=== PATIENT | female | born 1940 | race Caucasian/White ===

== ENCOUNTER 2017-05-06 12:34 | Inpatient (IN) | payer MEDICARE ==
[~2017-05-06] VITALS: Ht 165.1 cm; Wt 64.9 kg
[2017-05-06] MEDS ORDERED: LORA10TA3 PO (13:24)
[2017-05-06] MEDS ORDERED: TELM1TAB3 PO (13:24)
[2017-05-06] MEDS ORDERED: NABU750T PO (13:24)
[2017-05-06] MEDS ORDERED: POTA500T5 PO (13:24)
[2017-05-06] MEDS ORDERED: LORA1TAB PO (13:24)
[2017-05-06] MEDS ORDERED: DONE10TA7 PO (13:25)
[2017-05-06] MEDS ORDERED: LOVA20TA2 PO (13:25)
[2017-05-06] MEDS ORDERED: GLUC1TAB44 PO (13:25)
[2017-05-06] MEDS ORDERED: OMEP20TA63 PO (13:25)
[2017-05-06] MEDS ORDERED: ACET650T89 PO (13:25)
[2017-05-06] MEDS ORDERED: MEMA10TA PO ×2 (13:25→14:29)
[2017-05-06] MEDS ORDERED: HYDR-2868 PO (13:25)
[2017-05-06] MEDS ORDERED: ACETAMINOPHEN 325 MG TABLET PO PRN (14:00)
[2017-05-06] MEDS: hydrALAZINE 25 MG TABLET PO SCH ×2 (14:00→19:38)
[2017-05-06] MEDS ORDERED: HYDROcodone/APAP 5/325MG 1 TAB TABLET PO PRN (14:00)
[2017-05-06] MEDS ORDERED: ACETAMINOPHEN 1300 MG PO SCH (14:00)
[2017-05-06] MEDS: DIVALPROEX 125 MG CAP.SPRINK PO SCH ×2 (14:00→19:37)
[2017-05-06 14:23] VITALS: BP 98/65
[2017-05-06] MEDS ORDERED: LEXAPRO5 MG PO (14:29)
[2017-05-06] MEDS ORDERED: LOSA1TAB25 PO (14:29)
[2017-05-06] MEDS ORDERED: HYDR-971 PO ×2 (14:29)
[2017-05-06] MEDS ORDERED: ACET500T68 PO (14:29)
[2017-05-06] MEDS ORDERED: RIVA1PAT22 TP (14:29)
[2017-05-06] MEDS ORDERED: DIVA125C PO (14:29)
[2017-05-06] MEDS ORDERED: CHOL500021 PO (14:29)
[2017-05-06] MEDS ORDERED: MENT118G TP (14:29)
[2017-05-06] MEDS ORDERED: ACET325T9 PO (14:29)
[2017-05-06] MEDS ORDERED: LORA0.5T PO (14:29)
[2017-05-06] MEDS ORDERED: METHYL SALICYLATE/MENTHOL TOPICAL OINTMENT 29GM TUBE. TP PRN (15:00)
[2017-05-06] MEDS ORDERED: MAG HYDROX/AL HYDROX/SIMETH 30 ML ORAL.SUSP PO PRN (15:30)
[2017-05-06] MEDS ORDERED: MAGNESIUM HYDROXIDE 2,400 MG/30 ML ORAL.SUSP. PO PRN (15:30)
[2017-05-06] MEDS ORDERED: CHOLECALCIFEROL (VITAMIN D3) 50,000 UNIT CAPSULE PO SCH (17:00)
[2017-05-06] MEDS: MEMANTINE 5 MG TABLET. PO SCH (19:37)
[2017-05-06] MEDS: ATORVASTATIN CALCIUM 10 MG TABLET. PO SCH (19:37)
[2017-05-06] MEDS: ACETAMINOPHEN 500 MG TABLET PO SCH (19:38)
[2017-05-06] MEDS: DONEPEZIL HCL 10 MG TABLET PO SCH (19:38)
--- NOTE | 2017-05-06 22:14 | PDOC ---
Exam Note: Tobin Note: Please also refer to the separate dictated note~for this date of service dictated separately.~Patient seen individually. Discussed the patient with Nursing staff reviewed the chart.~Reviewed interim history and current functioning. Reviewed vital signs,~Labs/ Radiology~and current medications noted below. Continue current treatment with the changes noted in the dictated addendum note Assessment: Vital Signs: Vital Signs Date Time Temp Pulse Resp B/P (MAP) Pulse Ox O2 Delivery O2 Flow Rate FiO2 05/06/17 19:38 65 122/70 05/06/17 14:23 97.6 19 96 Current Medications: Meds: Current Medications Acetaminophen (Tylenol) 500 mg BID PO Last administered on 05/06/17 19:38; Start 05/06/17 at 21:00 Acetaminophen (Tylenol) 650 mg PRN Q6HRS PRN PO PAIN / TEMP; Start 05/06/17 at 14:00 Vitamin D (Vitamin D3) 50,000 unit WEEKLY PO ; Start 05/06/17 at 17:00; Stop 05/06/17 at 17:00; Status DC Divalproex Sodium (Depakote Sprinkles) 250 mg TID PO Last administered on 05/06 19:37; Start 05/06/17 at 14:00 Donepezil HCl (Aricept) 10 mg HS PO Last administered on 05/06/17 19:38; Start 05/06/17 at 21:00 Hydralazine HCl (Apresoline) 25 mg TID PO Last administered on 05/06/17 19:38 ; Start 05/06/17 at 14:00 Acetaminophen/ Hydrocodone Bitart (Lortab 5/325) 1 tab PRN Q6HRS PRN PO PAIN; Start 05/06/17 at 14:00; Status UNV Acetaminophen/ Hydrocodone Bitart (Lortab 5/325) 1 tab Q4HRS W/A PRN PO PAIN; Start 05/06/17 at 14:00 Lorazepam (Ativan) 0.5 mg PRN Q4HRS PRN PO ANXIETY / AGITATION; Start at 14:00 Memantine (Namenda) 5 mg QHS PO Last administered on 05/06/17 19:37; Start 05/06/17 at 21:00 Memantine (Namenda) 10 mg DAILY PO ; Start 05/07/17 at 09:00 Rivastigmine (Exelon) 1 patch DAILY TD ; Start 05/07/17 at 09:00 Non-Formulary Medication 1,300 mg Q8HRS PO ; Start 05/06/17 at 14:00; Stop at 15:31; Status DC Citalopram Hydrobromide (CeleXA) 10 mg DAILY PO ; Start 05/07/17 at 09:00 Hydrochlorothiazide (Microzide) 12.5 mg DAILY PO ; Start 05/07/17 at 09:00 Atorvastatin Calcium (Lipitor) 5 mg QHS PO Last administered on 05/06/17t 19: 37; Start 05/06/17 at 21:00 Multi-Ingredient Ointment (Analgesic [place]) 1 rin PRN BID PRN TP PAIN; Start at 15:00 Potassium Chloride (Klor-Con 8) 8 meq DAILYWBKFT PO ; Start 05/07/17 at 08:00 Non-Formulary Medication 1 tab DAILY PO ; Start 05/07/17 at 09:00; Status UNV Al Hydroxide/Mg Hydroxide (Mylanta Plus Xs) 15 ml PRN AFTMEALHC PRN PO DYSPEPSIA; Start 05/06/17 at 15:30 Magnesium Hydroxide (Milk Of Magnesia) 2,400 mg PRN QHS PRN PO CONSTIPATION; Start 05/06/17 at 15:30 Losartan Potassium (Cozaar) 100 mg DAILY PO ; Start 05/07/17 at 09:00 Vitamin D (Vitamin D3) 50,000 unit WEEKLY PO ; Start 05/07/17 at 09:00; Stop at 09:01 Olanzapine (ZyPREXA ZYDIS) 2.5 mg PRN Q2HR PRN PO PSYCHOSIS Last administered on 05/06/17t 17:57; Start 05/06/17 at 17:45 Active Scripts Active Reported D3-50 (Cholecalciferol (Vitamin D3)) 50,000 Unit Capsule 50,000 Unit PO WEEKLY Acetaminophen 500 Mg Tablet 500 Mg PO BID Tylenol (Acetaminophen) 325 Mg Tablet 650 Mg PO PRN Q6HRS PRN [place] 5-325 Tablet (Hydrocodone Bit/Acetaminophen) 1 Each Tablet 1 Tab PO PRN Q6HRS PRN [place] 5-325 Tablet (Hydrocodone Bit/Acetaminophen) 1 Each Tablet 1 Tab PO Q4HRS W/A PRN Namenda (Memantine Hcl) 10 Mg Tablet 5 Mg PO HS Losartan-Hctz 100-12.5 Mg Tab (Losartan/Hydrochlorothiazide) 1 Each Tablet 1 Tab PO DAILY Lexapro (Escitalopram Oxalate) 5 Mg Tablet 5 Mg PO DAILY EXELON 4.6mg/24hr (Rivastigmine) 1 Each Patch.td24 1 Patch TP DAILY Depakote Sprinkle (Divalproex Sodium) 125 Mg Cap.sprink 250 Mg PO TID Biofreeze (Menthol) 118 Ml Gel..ml. 1 Ml TP PRN BID PRN Lorazepam 0.5 Mg Tablet 0.5 Mg PO PRN Q4HRS PRN Hydralazine Hcl 25 Mg Tablet 25 Mg PO TID Arthritis Pain (Acetaminophen) 650 Mg Tablet.er 1,300 Mg PO Q8HRS Namenda (Memantine Hcl) 10 Mg Tablet 10 Mg PO DAILY Donepezil Hcl 10 Mg Tablet 10 Mg PO HS Lovastatin 20 Mg Tablet 20 Mg PO HS Micardis Hct 80-12.5 Mg Tablet (Telmisartan/Hydrochlorothiazid) 1 Each Tablet 1 Tab PO DAILY Potassium Gluconate 500 Mg Tablet 500 Mg PO DAILY I have reviewed the current psychotropics carefully including drug interactions. Risk benefit ratio favors no change other than as noted in my dictated progress note. NEHEMIAS EPSTEIN MD May 06, 2017 22:14
[2017-05-07 05:29] VITALS: BP 132/70
[2017-05-07] MEDS: ACETAMINOPHEN 500 MG TABLET PO SCH ×2 (07:15→19:27)
[2017-05-07] MEDS: hydrALAZINE 25 MG TABLET PO SCH ×3 (07:16→19:27)
[2017-05-07] MEDS: CHOLECALCIFEROL (VITAMIN D3) 50,000 UNIT CAPSULE PO SCH (07:34)
[2017-05-07] MEDS: MEMANTINE 10 MG TABLET. PO SCH (07:34)
[2017-05-07] MEDS: CITALOPRAM 10 MG TABLET. PO SCH (07:34)
[2017-05-07] MEDS: DIVALPROEX 125 MG CAP.SPRINK PO SCH (07:36)
[2017-05-07] MEDS: POTASSIUM CHLORIDE 8 MEQ TABLET.ER. PO SCH (07:37)
[2017-05-07] MEDS: RIVASTIGMINE 4.6MG PATCH. TD SCH (07:37)
[2017-05-07 07:45] LABS: BASO # 0.1 x10^3/uL (0.0-0.2); BASO % 1 % (0-3); EOS # 0.2 x10^3/uL (0.0-0.7); EOS % 2 % (0-3); HEMATOCRIT 38.5 % (36.0-47.0); HEMOGLOBIN 13.4 g/dL (12.0-15.5); LYMPH # 1.2 x10^3/uL (1.0-4.8); LYMPH % 13 % (24-48); MEAN CORPUSCULAR HEMOGLOBIN 32 pg (25-35); MEAN CORPUSCULAR HGB CONC 35 g/dL (31-37); MEAN CORPUSCULAR VOLUME 93 fL (79-100); MONO # 0.9 x10^3/uL (0.0-1.1); MONO % 10 % (0-9); NEUT # 6.7 x10^3uL (1.8-7.7); NEUT % 74 % (31-73); PLATELET COUNT 248 x10^3/uL (140-400); RED BLOOD COUNT 4.13 x10^6/uL (3.50-5.40); WHITE BLOOD COUNT 9.1 x10^3/uL (4.0-11.0)
[2017-05-07 08:10] LABS: ALBUMIN 4.2 g/dL (3.4-5.0); CALCIUM 10.1 mg/dL (8.5-10.1); CREATININE 2.8 mg/dL (0.6-1.0); GFR 16.4; MAGNESIUM 2.7 mg/dL (1.8-2.4); POTASSIUM 4.6 mmol/L (3.5-5.1); TOTAL BILIRUBIN 0.7 mg/dL (0.2-1.0); TOTAL PROTEIN 8.3 g/dL (6.4-8.2)
[2017-05-07 08:18] LABS: VAL ACID 30 mcg/mL (50-100)
[2017-05-07 08:31] LABS: BILIRUBIN,URINE NEG (NEG); CLARITY,URINE HAZY; COLOR,URINE YELLOW; GLUCOSE,URINE NEG (NEG)
[2017-05-07 08:32] LABS: BACTERIA,URINE FEW /HPF (0-FEW); GRANULAR CASTS,URINE OCC /HPF; HYALINE CASTS, URINE FEW /HPF; NITRITE,URINE NEG (NEG); SQUAMOUS EPITHELIAL CELL,UR FEW /LPF; UROBILINOGEN,URINE 0.2 mg/dL (0.2 mg/dL); WBC,URINE 20-40 /HPF (0-4)
[2017-05-07] MEDS ORDERED: [UNRECOGNIZED DRUG - OTHER] PO SCH (09:00)
[2017-05-07] MEDS ORDERED: LOSARTAN 50 MG TABLET. PO SCH (09:00)
[2017-05-07] MEDS ORDERED: hydroCHLOROthiazide 12.5 MG CAPSULE PO SCH (09:00)
[2017-05-07 10:55] LABS: THYROID STIM HORMONE (TSH) 0.359 uIU/mL (0.358-3.740)
--- NOTE | 2017-05-07 11:47 | HP ---
ADMIT DATE: 05/06/2017 PSYCHIATRIC ADMISSION HISTORY AND EVALUATION This late entry covers 05/06/2017 covers elements not covered in my initial note of 05/06/2017. IDENTIFYING DATA: The patient was seen individually in the evening of 05/06/2017 for this evaluation. I previously discussed the patient with the nursing staff on 2 occasions to review background, historical information resulting in this referral from her primary care physician, Dr. Callejas from [facility] in [place], [place], and Dr. Smith, psychiatrist. The patient had failed outpatient psychiatric interventions. He is severely demented, confused, has been delusional, agitated, aggressive, throwing things, biting at staff, hitting others. Multiple changes in her psychotropics had been attempted at the senior care. Behaviors had only escalated worsened, persisted despite all of this resulting in this referral. CHIEF COMPLAINT: "I don't know." The patient responded after I asked her when she came here. She was able to tell me her last name; however, after I introduced myself. HISTORY OF PRESENT ILLNESS: The patient has a history of dementia, Alzheimer's vascular type. The patient has been residing at [facility] for some time. Over the past several days, she has been increasingly agitated, labile, psychotic, paranoid. She has had sleep and appetite changes, marked escalation in her behaviors which have been dangerous, biting, hitting others, throwing things potentially dangerous. No clear history of bipolar disorder, suicidal, or homicidal ideation. PAST PSYCHIATRIC HISTORY: As above. MEDICAL HISTORY: Chronic diarrhea, hypertension, GERD, hyperlipidemia. ACCU-CHEKS: None. DIET: Regular. CODE STATUS: She is a full code. CURRENT PSYCHOTROPICS: Depakote Sprinkles 250 mg 3 times a day which initiated recently in response to her above behaviors, Namenda 10 mg daily, 5 mg at bedtime, increasing to 10 mg b.i.d., Aricept 10 mg a day, Exelon patch 4.6 mg daily, Lexapro 5 mg daily. ALLERGIES: AUGMENTIN, CODEINE, PENICILLIN, POTASSIUM. FAMILY HISTORY: Noncontributory. SOCIAL HISTORY: No history of alcohol, drug abuse, physical, sexual, or elder abuse history is noted. Not known to be a perpetrator. MENTAL STATUS EXAMINATION: The patient was seen individually in evening of 05/06/2017. She is oriented to herself, somewhat withdrawn, has received several PRNs prior to my visit, appears somewhat sedated, but shortly after my visit she was agitated, aggressive, disruptive, had to be taken to the quiet room, but the doors opened in the quiet hallway to reduce the sensory stimuli, which was agitating her. She is not very verbal. Insight, judgment, recent and remote memory, attention, concentration, fund of knowledge poor, consistent with her diagnoses. The patient was unable to tell me what kind of work she used to do in the past as I persisted in questioning her irritability only increased. REACTION TO HOSPITALIZATION: The patient is oblivious of this assets, stable living at the senior care, supportive family. IMPRESSION: Major neurocognitive disorder, Alzheimer vascular with depression, delusion, behavioral disturbance; anxiety disorder, unspecified; impulse control disorder, unspecified. Rest is as noted above. PLAN: Admit to the Geropsychiatry unit at [facility]. I will see the patient daily individually from a psychiatric standpoint, medical followup per Dr. Stewart/Dr Sanders. The patient had been sent to the Emergency Room at [facility] in [place], [place]. The previous evening, found to be medically stable, returned back to the senior care only for her behaviors to escalate once again resulting in this referral to us morning of 05/06/2017. Continue current psychotropics, check a valproic acid level, observe baseline, add Zyprexa p.r.n., make further adjustments as clinically indicated. NEHEMIAS EPSTEIN MD DR: USMAN/rogerio JOB#: [id number] / [id number]
--- NOTE | 2017-05-07 12:35 | EKG ---
[address] [address] Test Date: 2017-05-07 Test Time: 07:00:56 Pat Name: ELLIS SCHWAB Department: Room: [address] [place] [address] Gender: Damage Inside Adjuster: : 1940 Requested By: NEHEMIAS EPSTEIN Order Number: [id number] Reading MD: Levi Sandoval Measurements Intervals [place] Rate: P: UT: QRS: QRSD: T: QT: QTc: Interpretive Statements No previous ECG available for comparison Electronically Signed On 05-19-2017 16:36:25 SOFTWARE APPLICATION TESTER by Levi Sandoval
[2017-05-07] MEDS: VALPROATE ACID 250 MG/5 ML ORAL SOLUTION PO SCH ×2 (14:00→19:33)
[2017-05-07 15:54] VITALS: BP 153/71
[2017-05-07 16:11] LABS: THYROXINE 10.2 ug/dL (4.5-12.0)
[2017-05-07] MEDS: IV NORMAL SALINE 1,000ML 1,000 ML IV SCH (17:15)
[2017-05-07] MEDS: ATORVASTATIN CALCIUM 10 MG TABLET. PO SCH (19:23)
[2017-05-07] MEDS: DONEPEZIL HCL 10 MG TABLET PO SCH (19:24)
[2017-05-07] MEDS: MEMANTINE 5 MG TABLET. PO SCH (19:27)
--- NOTE | 2017-05-07 21:19 | PDOC ---
Exam Note: Tobin Note: Please also refer to the separate dictated note~for this date of service dictated separately.~Patient seen individually. Discussed the patient with Nursing staff reviewed the chart.~Reviewed interim history and current functioning. Reviewed vital signs,~Labs/ Radiology~and current medications noted below. Continue current treatment with the changes noted in the dictated addendum note Assessment: Vital Signs: Vital Signs Date Time Temp Pulse Resp B/P (MAP) Pulse Ox O2 Delivery O2 Flow Rate FiO2 05/07/17 19:27 74 153/71 05/07/17 15:54 98.2 16 97 05/07/17 05:29 Room Air I&O Intake and Output 05/07/17 06:59 Intake Total 0 ml Balance 0 ml Intake Oral 0 ml Labs: Laboratory Tests Test 05/07/17 07:30 05/07/17 07:31 Urine Collection Type Unknown Urine Color Yellow Urine Clarity Hazy Urine pH 5.0 Urine Specific [place] 1.015 Urine Protein Trace (NEG-TRACE) Urine Glucose (UA) Neg mg/dL (NEG) Urine Ketones (Stick) Neg mg/dL (NEG) Urine Blood Neg (NEG) Urine Nitrite Neg (NEG) Urine Bilirubin Neg (NEG) Urine Urobilinogen Dipstick 0.2 mg/dL (0.2 mg/dL) Urine Leukocyte Esterase Small (NEG) Urine RBC 1-2 /HPF (0-2) Urine WBC 20-40 /HPF (0-4) Urine Squamous Epithelial Cells Few /LPF Urine Transitional Epithelial Cells Few /LPF Urine Bacteria Few /HPF (0-FEW) Urine Hyaline Casts Few /HPF Urine Granular Casts Occ /HPF White Blood Count 9.1 x10^3/uL (4.0-11.0) Red Blood Count 4.13 x10^6/uL (3.50-5.40) Hemoglobin 13.4 g/dL (12.0-15.5) Hematocrit 38.5 % (36.0-47.0) Mean Corpuscular Volume 93 fL (79-100) Mean Corpuscular Hemoglobin 32 pg (25-35) Mean Corpuscular Hemoglobin Concent 35 g/dL (31-37) Red Cell Distribution Width 14.0 % (11.5-14.5) Platelet Count 248 x10^3/uL (140-400) Neutrophils (%) (Auto) 74 % (31-73) H Lymphocytes (%) (Auto) 13 % (24-48) L Monocytes (%) (Auto) 10 % (0-9) H Eosinophils (%) (Auto) 2 % (0-3) Basophils (%) (Auto) 1 % (0-3) Neutrophils # (Auto) 6.7 x10^3uL (1.8-7.7) Lymphocytes # (Auto) 1.2 x10^3/uL (1.0-4.8) Monocytes # (Auto) 0.9 x10^3/uL (0.0-1.1) Eosinophils # (Auto) 0.2 x10^3/uL (0.0-0.7) Basophils # (Auto) 0.1 x10^3/uL (0.0-0.2) Sodium Level 141 mmol/L (136-145) Potassium Level 4.6 mmol/L (3.5-5.1) Chloride Level 106 mmol/L (98-107) Carbon Dioxide Level 21 mmol/L (21-32) Anion Gap 14 (6-14) Blood Urea Nitrogen 83 mg/dL (7-20) H Creatinine 2.8 mg/dL (0.6-1.0) H Estimated GFR (Cockcroft-Gault) 16.4 BUN/Creatinine Ratio 30 (6-20) H Glucose Level 98 mg/dL (70-99) Calcium Level 10.1 mg/dL (8.5-10.1) Magnesium Level 2.7 mg/dL (1.8-2.4) H Iron Level 105 ug/dL (50-170) Total Iron Binding Capacity 243 ug/dL (250-450) L Iron Saturation 43 % (15-34) H Total Bilirubin 0.7 mg/dL (0.2-1.0) Aspartate Amino Transferase (AST) 37 U/L (15-37) Alanine Aminotransferase (ALT) 51 U/L (14-59) Alkaline Phosphatase 89 U/L (46-116) Total Protein 8.3 g/dL (6.4-8.2) H Albumin 4.2 g/dL (3.4-5.0) Albumin/Globulin Ratio 1.0 (1.0-1.7) Triglycerides Level 66 mg/dL (0-150) Cholesterol Level 141 mg/dL (0-200) LDL Cholesterol, Calculated 60 mg/dL (0-100) VLDL Cholesterol, Calculated 13 mg/dL (0-40) Non-HDL Cholesterol Calculated 73 mg/dL (0-129) HDL Cholesterol 68 mg/dL (40-60) H Cholesterol/HDL Ratio 2.0 Thyroid Stimulating Hormone (TSH) 0.359 uIU/mL (0.358-3.740) Thyroxine (T4) 10.2 ug/dL (4.5-12.0) Total Triiodothyronine (TT3) 53 ng/dL (71-180) L Valproic Acid Level 30 mcg/mL (50-100) L Valproic Acid Last Dose Date 05/06/17 Valproic Acid Last Dose Time 2100 Rapid Plasma Reagin Pending Current Medications: Meds: Current Medications Acetaminophen (Tylenol) 500 mg BID PO Last administered on 05/07/17 19:27; Start 05/06/17 at 21:00 Acetaminophen (Tylenol) 650 mg PRN Q6HRS PRN PO PAIN / TEMP Last administered on 05/07/17 07:15; Start 05/06/17 at 14:00 Vitamin D (Vitamin D3) 50,000 unit WEEKLY PO ; Start 05/06/17 at 17:00; Stop 05/06/17 at 17:00; Status DC Divalproex Sodium (Depakote Sprinkles) 250 mg TID PO Last administered on 05/07 07:36; Start 05/06/17 at 14:00; Stop 05/07/17 at 13:09; Status DC Donepezil HCl (Aricept) 10 mg HS PO Last administered on 05/07/17 19:24; Start 05/06/17 at 21:00 Hydralazine HCl (Apresoline) 25 mg TID PO Last administered on 05/07/17 19:27 ; Start 05/06/17 at 14:00 Acetaminophen/ Hydrocodone Bitart (Lortab 5/325) 1 tab PRN Q6HRS PRN PO PAIN; Start 05/06/17 at 14:00; Status UNV Acetaminophen/ Hydrocodone Bitart (Lortab 5/325) 1 tab Q4HRS W/A PRN PO PAIN; Start 05/06/17 at 14:00 Lorazepam (Ativan) 0.5 mg PRN Q4HRS PRN PO ANXIETY / AGITATION; Start at 14:00 Memantine (Namenda) 5 mg QHS PO Last administered on 05/07/17 19:27; Start 05/06/17 at 21:00 Memantine (Namenda) 10 mg DAILY PO Last administered on 05/07/17 07:34; Start 05/07/17 at 09:00 Rivastigmine (Exelon) 1 patch DAILY TD Last administered on 05/07/17 07:37; Start 05/07/17 at 09:00 Non-Formulary Medication 1,300 mg Q8HRS PO ; Start 05/06/17 at 14:00; Stop at 15:31; Status DC Citalopram Hydrobromide (CeleXA) 10 mg DAILY PO Last administered on 07:34; Start 05/07/17 at 09:00 Hydrochlorothiazide (Microzide) 12.5 mg DAILY PO Last administered on 07:34; Start 05/07/17 at 09:00; Stop 05/07/17 at 17:04; Status DC Atorvastatin Calcium (Lipitor) 5 mg QHS PO Last administered on 05/07/17 19: 23; Start 05/06/17 at 21:00 Multi-Ingredient Ointment (Analgesic [place]) 1 rin PRN BID PRN TP PAIN; Start at 15:00 Potassium Chloride (Klor-Con 8) 8 meq DAILYWBKFT PO Last administered on 07:37; Start 05/07/17 at 08:00 Non-Formulary Medication 1 tab DAILY PO ; Start 05/07/17 at 09:00; Status UNV Al Hydroxide/Mg Hydroxide (Mylanta Plus Xs) 15 ml PRN AFTMEALHC PRN PO DYSPEPSIA; Start 05/06/17 at 15:30 Magnesium Hydroxide (Milk Of Magnesia) 2,400 mg PRN QHS PRN PO CONSTIPATION; Start 05/06/17 at 15:30 Losartan Potassium (Cozaar) 100 mg DAILY PO Last administered on 05/07/17 07: 33; Start 05/07/17 at 09:00; Stop 05/07/17 at 17:04; Status DC Vitamin D (Vitamin D3) 50,000 unit WEEKLY PO Last administered on 05/07/17 07 :34; Start 05/07/17 at 09:00; Stop 06/18/17 at 09:01 Olanzapine (ZyPREXA ZYDIS) 2.5 mg PRN Q2HR PRN PO PSYCHOSIS Last administered on 05/06/17 17:57; Start 05/06/17 at 17:45 Valproic Acid (Depakene) 250 mg [id number] PO Last administered on 05/07/17 19:33 ; Start 05/07/17 at 14:00 Sodium Chloride 1,000 ml @ 75 mls/hr [id number] IV Last administered on 17:15; Start 05/07/17 at 17:15 Active Scripts Active Reported D3-50 (Cholecalciferol (Vitamin D3)) 50,000 Unit Capsule 50,000 Unit PO WEEKLY Acetaminophen 500 Mg Tablet 500 Mg PO BID Tylenol (Acetaminophen) 325 Mg Tablet 650 Mg PO PRN Q6HRS PRN [place] 5-325 Tablet (Hydrocodone Bit/Acetaminophen) 1 Each Tablet 1 Tab PO PRN Q6HRS PRN [place] 5-325 Tablet (Hydrocodone Bit/Acetaminophen) 1 Each Tablet 1 Tab PO Q4HRS W/A PRN Namenda (Memantine Hcl) 10 Mg Tablet 5 Mg PO HS Losartan-Hctz 100-12.5 Mg Tab (Losartan/Hydrochlorothiazide) 1 Each Tablet 1 Tab PO DAILY Lexapro (Escitalopram Oxalate) 5 Mg Tablet 5 Mg PO DAILY EXELON 4.6mg/24hr (Rivastigmine) 1 Each Patch.td24 1 Patch TP DAILY Depakote Sprinkle (Divalproex Sodium) 125 Mg Cap.sprink 250 Mg PO TID Biofreeze (Menthol) 118 Ml Gel..ml. 1 Ml TP PRN BID PRN Lorazepam 0.5 Mg Tablet 0.5 Mg PO PRN Q4HRS PRN Hydralazine Hcl 25 Mg Tablet 25 Mg PO TID Arthritis Pain (Acetaminophen) 650 Mg Tablet.er 1,300 Mg PO Q8HRS Namenda (Memantine Hcl) 10 Mg Tablet 10 Mg PO DAILY Donepezil Hcl 10 Mg Tablet 10 Mg PO HS Lovastatin 20 Mg Tablet 20 Mg PO HS Micardis Hct 80-12.5 Mg Tablet (Telmisartan/Hydrochlorothiazid) 1 Each Tablet 1 Tab PO DAILY Potassium Gluconate 500 Mg Tablet 500 Mg PO DAILY I have reviewed the current psychotropics carefully including drug interactions. Risk benefit ratio favors no change other than as noted in my dictated progress note. 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
[2017-05-08 01:08] LABS: HEMOGLOBIN A1C 4.9 % (4.8-5.6)
[2017-05-08] MEDS: HYDROcodone/APAP 5/325MG 1 TAB TABLET PO PRN ×2 (05:28→19:25)
[2017-05-08] MEDS: LORazepam 0.5 MG TABLET PO PRN (05:28)
[2017-05-08 06:22] VITALS: BP 141/59
[2017-05-08] MEDS: IV NORMAL SALINE 1,000ML 1,000 ML IV SCH ×2 (06:35→20:43)
[2017-05-08] MEDS: CITALOPRAM 10 MG TABLET. PO SCH (07:47)
[2017-05-08] MEDS: VALPROATE ACID 250 MG/5 ML ORAL SOLUTION PO SCH ×3 (07:47→19:26)
[2017-05-08] MEDS: hydrALAZINE 25 MG TABLET PO SCH ×3 (07:47→19:26)
[2017-05-08] MEDS: RIVASTIGMINE 4.6MG PATCH. TD SCH (07:47)
[2017-05-08] MEDS: MEMANTINE 10 MG TABLET. PO SCH (07:47)
[2017-05-08] MEDS: ACETAMINOPHEN 500 MG TABLET PO SCH ×2 (07:47→19:26)
[2017-05-08] MEDS: POTASSIUM CHLORIDE 8 MEQ TABLET.ER. PO SCH (07:53)
[2017-05-08 08:21] LABS: CALCIUM 9.5 mg/dL (8.5-10.1); GFR 24.2; POTASSIUM 4.3 mmol/L (3.5-5.1)
--- NOTE | 2017-05-08 09:09 | CONS ---
DATE OF CONSULTATION: 05/07/2017 REASON FOR CONSULTATION: Medical management. HISTORY OF PRESENT ILLNESS: The patient is a 76-year-old female patient, a resident at [facility] in [place], [place], who apparently was [facility] on the account of being severely demented, confused, has been delusional, agitated, aggressive, throwing things, fighting with staff, hitting others, multiple changes in her psychotropic medication had been attempted at the correction and she has failed outpatient psychiatric intervention and her behavior worsened and she was admitted for inpatient psychiatric stabilization. When I saw her, she was very sleepy and lethargic and does not give any useful information. PAST MEDICAL HISTORY: Significant for hypertension, chronic diarrhea, gastroesophageal reflux disease, hyperlipidemia. PAST SURGICAL HISTORY: Unobtainable. PAST PSYCHIATRIC HISTORY: Significant for dementia, Alzheimer vascular type. ALLERGIES: She is allergic to PENICILLIN, AMOXICILLIN, CLAVULANIC ACID, CODEINE and POTASSIUM. MEDICATIONS: She is currently on following medications: She is on Tylenol 650 mg every 6 hours as needed for pain or fever. She is on valproic acid 250 mg 3 times a day, vitamin D 50,000 units once a week, losartan potassium 100 mg daily, hydrochlorothiazide 12.5 mg once a day, citalopram hydrobromide 10 mg once a day, rivastigmine for [place] 1 patch daily, Namenda 10 mg once a day, potassium chloride 8 mEq once a day, atorvastatin mg at bedtime, Namenda 5 mg twice a day, Aricept 10 mg once a day, olanzapine 2.5 mg every 2 hours as needed for agitation, milk of magnesia 30 mL p.o. daily p.r.n. for constipation, Mylanta 15 mL after meals as needed, lorazepam 0.5 mg every 4 hours, hydrocodone/APAP 5/325 one tablet every 4 hours, hydralazine 25 mg 3 times a day. PHYSICAL EXAMINATION: GENERAL: When I saw her this afternoon, she was resting flat, comfortably in bed, in no apparent distress, pale, but no jaundice, cyanosis, or thyromegaly. No jugular venous distention. No limb edema. VITAL SIGNS: Her heart rate was 74, blood pressure 153/71, temperature was 98.2, respiratory rate was 16, and oxygen saturation was 97%. HEAD, EYES, EARS, NOSE AND THROAT: Showed normocephalic, atraumatic. NECK: Supple. HEART: Showed normal first and second sounds. No gallop, rub or murmur. CHEST: Clear to auscultation. No crepitation or rhonchi. ABDOMEN: Distended, soft, nontender. No guarding or rigidity. No organomegaly. All hernial orifice intact. Bowel sounds normal. NEUROLOGIC: She is very lethargic, but arousable. She opens eyes, tracks and drifts back to sleep. All her cranial nerves seem to be grossly intact. EXTREMITIES: She moves extremities without difficulty, although she is mostly bedbound. She has what seems to be flapping tremor. IMPRESSION: In summary, this is a 76-year-old female patient, resident at [facility] in [place], [place], who was admitted on account of increased confusion, delusional, agitated, aggressive, throwing things, biting at staff, hitting others. She has multiple medical problems including hypertension, hyperlipidemia, gastroesophageal reflux disease. She has also chronic kidney disease and she seemed to be clinically . She has also flapping tremor. PLAN: My plan is to discontinue the losartan and hydrochlorothiazide. Start her on IV fluid, check her labs tomorrow including ammonia and prothrombin time and if her blood pressure is high, we can start her on beta betty like metoprolol 25 mg twice a day. Thank you, Dr. Joseph for allowing me to participate in the care of this patient. ARMEN MOHR MD DR: NATALIA/rogerio JOB#: [id number] / [id number]
[2017-05-08 15:57] VITALS: BP 162/80
--- NOTE | 2017-05-08 19:07 | PN ---
DATE: 05/07/2017 PSYCHIATRIC PROGRESS NOTE This is a late entry for 05/07/2017, covers elements not covered in my initial note of 05/07/2017. SUBJECTIVE: Overall, the patient remains confused, intermittently agitated. She does have chronic renal insufficiency. BUN increased from 60 to 83. Creatinine from 2.8 to 2.9. Deferred to Dr. Sanders. She is going to receive IV fluids. Valproic acid level is 30. We will check an ammonia level. Repeat valproic acid level in 2 days. Evening Depakote held due to sedation. REVIEW OF SYSTEMS: Ambulation impaired. No CV, , pulmonary, eye, ENT system symptoms on review. MENTAL STATUS EXAM: Oriented to herself. Insight, judgment, recent and remote memory, attention, concentration, fund of knowledge poor, consistent with her diagnosis mentioned in my initial note. IMPRESSION: Major neurocognitive disorder, Alzheimer, vascular with delusion, depression, behavioral disturbance. PLAN: Continue psychotropics mentioned in my initial note. Rest as noted above. MAN Ana EPSTEIN MD DR: USMAN/rogerio JOB#: [id number] / [id number]
[2017-05-08] MEDS: MEMANTINE 5 MG TABLET. PO SCH (19:25)
[2017-05-08] MEDS: DONEPEZIL HCL 10 MG TABLET PO SCH (19:25)
[2017-05-08] MEDS: ATORVASTATIN CALCIUM 10 MG TABLET. PO SCH (19:25)
--- NOTE | 2017-05-08 20:13 | PDOC ---
Exam Note: Tobin Note: Please also refer to the separate dictated note~for this date of service dictated separately.~Patient seen individually. Discussed the patient with Nursing staff reviewed the chart.~Reviewed interim history and current functioning. Reviewed vital signs,~Labs/ Radiology~and current medications noted below. Continue current treatment with the changes noted in the dictated addendum note Assessment: Vital Signs: Vital Signs Date Time Temp Pulse Resp B/P (MAP) Pulse Ox O2 Delivery O2 Flow Rate FiO2 05/08/17 19:26 79 162/80 05/08/17 19:25 20 05/08/17 15:57 97.5 97 05/07/17 05:29 Room Air I&O Intake and Output 05/08/17 07:00 Intake Total 1240 ml Balance 1240 ml Intake Oral 240 ml IV Total 1000 ml # Bowel Movements 1 Labs: Laboratory Tests Test 05/08/17 07:53 Prothrombin Time 11.1 SEC (9.4-11.4) Prothrombin Time INR 1.1 (0.9-1.1) Sodium Level 143 mmol/L (136-145) Potassium Level 4.3 mmol/L (3.5-5.1) Chloride Level 109 mmol/L (98-107) H Carbon Dioxide Level 21 mmol/L (21-32) Anion Gap 13 (6-14) Blood Urea Nitrogen 69 mg/dL (7-20) H Creatinine 2.0 mg/dL (0.6-1.0) H Estimated GFR (Cockcroft-Gault) 24.2 Glucose Level 114 mg/dL (70-99) H Calcium Level 9.5 mg/dL (8.5-10.1) Ammonia < 10 mcmol/L (11-34) L Current Medications: Meds: Current Medications Acetaminophen (Tylenol) 500 mg BID PO Last administered on 05/08/17 19:26; Start 05/06/17 at 21:00 Acetaminophen (Tylenol) 650 mg PRN Q6HRS PRN PO PAIN / TEMP Last administered on 05/07/17 07:15; Start 05/06/17 at 14:00 Vitamin D (Vitamin D3) 50,000 unit WEEKLY PO ; Start 05/06/17 at 17:00; Stop 05/06/17 at 17:00; Status DC Divalproex Sodium (Depakote Sprinkles) 250 mg TID PO Last administered on 05/07 07:36; Start 05/06/17 at 14:00; Stop 05/07/17 at 13:09; Status DC Donepezil HCl (Aricept) 10 mg HS PO Last administered on 05/08/17 19:25; Start 05/06/17 at 21:00 Hydralazine HCl (Apresoline) 25 mg TID PO Last administered on 05/08/17 19:26 ; Start 05/06/17 at 14:00 Acetaminophen/ Hydrocodone Bitart (Lortab 5/325) 1 tab PRN Q6HRS PRN PO PAIN; Start 05/06/17 at 14:00; Status UNV Acetaminophen/ Hydrocodone Bitart (Lortab 5/325) 1 tab Q4HRS W/A PRN PO PAIN Last administered on 05/08/17 19:25; Start 05/06/17 at 14:00 Lorazepam (Ativan) 0.5 mg PRN Q4HRS PRN PO ANXIETY / AGITATION Last administered on 05/08/17 05:28; Start 05/06/17 at 14:00 Memantine (Namenda) 5 mg QHS PO Last administered on 05/08/17 19:25; Start 05/06/17 at 21:00 Memantine (Namenda) 10 mg DAILY PO Last administered on 05/08/17 07:47; Start 05/07/17 at 09:00 Rivastigmine (Exelon) 1 patch DAILY TD Last administered on 05/08/17 07:47; Start 05/07/17 at 09:00 Non-Formulary Medication 1,300 mg Q8HRS PO ; Start 05/06/17 at 14:00; Stop at 15:31; Status DC Citalopram Hydrobromide (CeleXA) 10 mg DAILY PO Last administered on 07:47; Start 05/07/17 at 09:00; Stop 05/08/17 at 18:33; Status DC Hydrochlorothiazide (Microzide) 12.5 mg DAILY PO Last administered on 07:34; Start 05/07/17 at 09:00; Stop 05/07/17 at 17:04; Status DC Atorvastatin Calcium (Lipitor) 5 mg QHS PO Last administered on 05/08/17 19: 25; Start 05/06/17 at 21:00 Multi-Ingredient Ointment (Analgesic [place]) 1 rin PRN BID PRN TP PAIN; Start at 15:00 Potassium Chloride (Klor-Con 8) 8 meq DAILYWBKFT PO Last administered on 07:53; Start 05/07/17 at 08:00 Non-Formulary Medication 1 tab DAILY PO ; Start 05/07/17 at 09:00; Status UNV Al Hydroxide/Mg Hydroxide (Mylanta Plus Xs) 15 ml PRN AFTMEALHC PRN PO DYSPEPSIA; Start 05/06/17 at 15:30 Magnesium Hydroxide (Milk Of Magnesia) 2,400 mg PRN QHS PRN PO CONSTIPATION; Start 05/06/17 at 15:30 Losartan Potassium (Cozaar) 100 mg DAILY PO Last administered on 05/07/17 07: 33; Start 05/07/17 at 09:00; Stop 05/07/17 at 17:04; Status DC Vitamin D (Vitamin D3) 50,000 unit WEEKLY PO Last administered on 05/07/17 07 :34; Start 05/07/17 at 09:00; Stop 06/18/17 at 09:01 Olanzapine (ZyPREXA ZYDIS) 2.5 mg PRN Q2HR PRN PO PSYCHOSIS Last administered on 05/06/17 17:57; Start 05/06/17 at 17:45 Valproic Acid (Depakene) 250 mg [id number] PO Last administered on 05/08/17 19:26 ; Start 05/07/17 at 14:00 Sodium Chloride 1,000 ml @ 75 mls/hr [id number] IV Last administered on 06:35; Start 05/07/17 at 17:15 Sertraline HCl (Zoloft) 25 mg DAILY PO ; Start 05/09/17 at 09:00; Stop at 08:00 Sertraline HCl (Zoloft) 50 mg DAILY PO ; Start 05/11/17 at 09:00 Active Scripts Active Reported D3-50 (Cholecalciferol (Vitamin D3)) 50,000 Unit Capsule 50,000 Unit PO WEEKLY Acetaminophen 500 Mg Tablet 500 Mg PO BID Tylenol (Acetaminophen) 325 Mg Tablet 650 Mg PO PRN Q6HRS PRN [place] 5-325 Tablet (Hydrocodone Bit/Acetaminophen) 1 Each Tablet 1 Tab PO PRN Q6HRS PRN [place] 5-325 Tablet (Hydrocodone Bit/Acetaminophen) 1 Each Tablet 1 Tab PO Q4HRS W/A PRN Namenda (Memantine Hcl) 10 Mg Tablet 5 Mg PO HS Losartan-Hctz 100-12.5 Mg Tab (Losartan/Hydrochlorothiazide) 1 Each Tablet 1 Tab PO DAILY Lexapro (Escitalopram Oxalate) 5 Mg Tablet 5 Mg PO DAILY EXELON 4.6mg/24hr (Rivastigmine) 1 Each Patch.td24 1 Patch TP DAILY Depakote Sprinkle (Divalproex Sodium) 125 Mg Cap.sprink 250 Mg PO TID Biofreeze (Menthol) 118 Ml Gel..ml. 1 Ml TP PRN BID PRN Lorazepam 0.5 Mg Tablet 0.5 Mg PO PRN Q4HRS PRN Hydralazine Hcl 25 Mg Tablet 25 Mg PO TID Arthritis Pain (Acetaminophen) 650 Mg Tablet.er 1,300 Mg PO Q8HRS Namenda (Memantine Hcl) 10 Mg Tablet 10 Mg PO DAILY Donepezil Hcl 10 Mg Tablet 10 Mg PO HS Lovastatin 20 Mg Tablet 20 Mg PO HS [place] Hct 80-12.5 Mg Tablet (Telmisartan/Hydrochlorothiazid) 1 Each Tablet 1 Tab PO DAILY Potassium Gluconate 500 Mg Tablet 500 Mg PO DAILY I have reviewed the current psychotropics carefully including drug interactions. Risk benefit ratio favors no change other than as noted in my dictated progress note. 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
[2017-05-09 05:49] VITALS: BP 158/79
[2017-05-09] MEDS: VALPROATE ACID 250 MG/5 ML ORAL SOLUTION PO SCH ×3 (08:09→19:18)
[2017-05-09] MEDS: RIVASTIGMINE 4.6MG PATCH. TD SCH (08:09)
[2017-05-09] MEDS: MEMANTINE 10 MG TABLET. PO SCH (08:09)
[2017-05-09] MEDS: hydrALAZINE 25 MG TABLET PO SCH ×3 (08:09→19:18)
[2017-05-09] MEDS: ACETAMINOPHEN 500 MG TABLET PO SCH ×2 (08:09→19:18)
[2017-05-09] MEDS: SERTRALINE 25 MG TABLET. PO SCH (08:12)
[2017-05-09] MEDS: POTASSIUM CHLORIDE 8 MEQ TABLET.ER. PO SCH (08:12)
[2017-05-09 08:14] LABS: CALCIUM 9.4 mg/dL (8.5-10.1); CREATININE 1.3 mg/dL (0.6-1.0); GFR 39.7; POTASSIUM 3.9 mmol/L (3.5-5.1)
[2017-05-09 08:35] LABS: VAL ACID 21 mcg/mL (50-100)
[2017-05-09] MEDS: IV NORMAL SALINE 1,000ML 1,000 ML IV SCH (09:51)
[2017-05-09] MEDS: HYDROcodone/APAP 5/325MG 1 TAB TABLET PO PRN (15:25)
[2017-05-09 16:08] VITALS: BP 138/64
[2017-05-09] MEDS: MEMANTINE 5 MG TABLET. PO SCH (19:18)
[2017-05-09] MEDS: ATORVASTATIN CALCIUM 10 MG TABLET. PO SCH (19:18)
[2017-05-09] MEDS: DONEPEZIL HCL 10 MG TABLET PO SCH (19:19)
--- NOTE | 2017-05-09 20:11 | PDOC ---
Exam Note: Tobin Note: Please also refer to the separate dictated note~for this date of service dictated separately.~Patient seen individually. Discussed the patient with Nursing staff reviewed the chart.~Reviewed interim history and current functioning. Reviewed vital signs,~Labs/ Radiology~and current medications noted below. Continue current treatment with the changes noted in the dictated addendum note Assessment: Vital Signs: Vital Signs Date Time Temp Pulse Resp B/P (MAP) Pulse Ox O2 Delivery O2 Flow Rate FiO2 05/09/17 19:18 64 138/64 05/09/17 16:08 98.2 22 98 Room Air I&O Intake and Output 05/09/17 07:00 Intake Total 240 ml Balance 240 ml Intake Oral 240 ml Labs: Laboratory Tests Test 05/09/17 07:40 Sodium Level 147 mmol/L (136-145) H Potassium Level 3.9 mmol/L (3.5-5.1) Chloride Level 113 mmol/L (98-107) H Carbon Dioxide Level 22 mmol/L (21-32) Anion Gap 12 (6-14) Blood Urea Nitrogen 44 mg/dL (7-20) H Creatinine 1.3 mg/dL (0.6-1.0) H Estimated GFR (Cockcroft-Gault) 39.7 Glucose Level 97 mg/dL (70-99) Calcium Level 9.4 mg/dL (8.5-10.1) Valproic Acid Level 21 mcg/mL (50-100) L Valproic Acid Last Dose Date 05/08/17 Valproic Acid Last Dose Time 2100 Current Medications: Meds: Current Medications Acetaminophen (Tylenol) 500 mg BID PO Last administered on 05/09/17 19:18; Start 05/06/17 at 21:00 Acetaminophen (Tylenol) 650 mg PRN Q6HRS PRN PO PAIN / TEMP Last administered on 05/07/17 07:15; Start 05/06/17 at 14:00 Vitamin D (Vitamin D3) 50,000 unit WEEKLY PO ; Start 05/06/17 at 17:00; Stop 05/06/17 at 17:00; Status DC Divalproex Sodium (Depakote Sprinkles) 250 mg TID PO Last administered on 05/07 07:36; Start 05/06/17 at 14:00; Stop 05/07/17 at 13:09; Status DC Donepezil HCl (Aricept) 10 mg HS PO Last administered on 05/09/17 19:19; Start 05/06/17 at 21:00 Hydralazine HCl (Apresoline) 25 mg TID PO Last administered on 05/09/17 19:18 ; Start 05/06/17 at 14:00 Acetaminophen/ Hydrocodone Bitart (Lortab 5/325) 1 tab PRN Q6HRS PRN PO PAIN; Start 05/06/17 at 14:00; Status UNV Acetaminophen/ Hydrocodone Bitart (Lortab 5/325) 1 tab Q4HRS W/A PRN PO PAIN Last administered on 05/09/17 15:25; Start 05/06/17 at 14:00 Lorazepam (Ativan) 0.5 mg PRN Q4HRS PRN PO ANXIETY / AGITATION Last administered on 05/08/17 05:28; Start 05/06/17 at 14:00 Memantine (Namenda) 5 mg QHS PO Last administered on 05/09/17 19:18; Start 05/06/17 at 21:00 Memantine (Namenda) 10 mg DAILY PO Last administered on 05/09/17 08:09; Start 05/07/17 at 09:00 Rivastigmine (Exelon) 1 patch DAILY TD Last administered on 05/09/17 08:09; Start 05/07/17 at 09:00 Non-Formulary Medication 1,300 mg Q8HRS PO ; Start 05/06/17 at 14:00; Stop at 15:31; Status DC Citalopram Hydrobromide (CeleXA) 10 mg DAILY PO Last administered on 07:47; Start 05/07/17 at 09:00; Stop 05/08/17 at 18:33; Status DC Hydrochlorothiazide (Microzide) 12.5 mg DAILY PO Last administered on 07:34; Start 05/07/17 at 09:00; Stop 05/07/17 at 17:04; Status DC Atorvastatin Calcium (Lipitor) 5 mg QHS PO Last administered on 05/09/17 19: 18; Start 05/06/17 at 21:00 Multi-Ingredient Ointment (Analgesic [place]) 1 rin PRN BID PRN TP PAIN; Start at 15:00 Potassium Chloride (Klor-Con 8) 8 meq DAILYWBKFT PO Last administered on 08:12; Start 05/07/17 at 08:00 Non-Formulary Medication 1 tab DAILY PO ; Start 05/07/17 at 09:00; Status UNV Al Hydroxide/Mg Hydroxide (Mylanta Plus Xs) 15 ml PRN AFTMEALHC PRN PO DYSPEPSIA; Start 05/06/17 at 15:30 Magnesium Hydroxide (Milk Of Magnesia) 2,400 mg PRN QHS PRN PO CONSTIPATION; Start 05/06/17 at 15:30 Losartan Potassium (Cozaar) 100 mg DAILY PO Last administered on 05/07/17 07: 33; Start 05/07/17 at 09:00; Stop 05/07/17 at 17:04; Status DC Vitamin D (Vitamin D3) 50,000 unit WEEKLY PO Last administered on 05/07/17 07 :34; Start 05/07/17 at 09:00; Stop 06/18/17 at 09:01 Olanzapine (ZyPREXA ZYDIS) 2.5 mg PRN Q2HR PRN PO PSYCHOSIS Last administered on 05/06/17 17:57; Start 05/06/17 at 17:45 Valproic Acid (Depakene) 250 mg [id number] PO Last administered on 05/09/17 19:18 ; Start 05/07/17 at 14:00 Sodium Chloride 1,000 ml @ 75 mls/hr [id number] IV Last administered on 09:51; Start 05/07/17 at 17:15; Stop 05/09/17 at 11:41; Status DC Sertraline HCl (Zoloft) 25 mg DAILY PO Last administered on 05/09/17 08:12; Start 05/09/17 at 09:00; Stop 05/11/17 at 08:00 Sertraline HCl (Zoloft) 50 mg DAILY PO ; Start 05/11/17 at 09:00 Active Scripts Active Reported D3-50 (Cholecalciferol (Vitamin D3)) 50,000 Unit Capsule 50,000 Unit PO WEEKLY Acetaminophen 500 Mg Tablet 500 Mg PO BID Tylenol (Acetaminophen) 325 Mg Tablet 650 Mg PO PRN Q6HRS PRN [place] 5-325 Tablet (Hydrocodone Bit/Acetaminophen) 1 Each Tablet 1 Tab PO PRN Q6HRS PRN [place] 5-325 Tablet (Hydrocodone Bit/Acetaminophen) 1 Each Tablet 1 Tab PO Q4HRS W/A PRN Namenda (Memantine Hcl) 10 Mg Tablet 5 Mg PO HS Losartan-Hctz 100-12.5 Mg Tab (Losartan/Hydrochlorothiazide) 1 Each Tablet 1 Tab PO DAILY Lexapro (Escitalopram Oxalate) 5 Mg Tablet 5 Mg PO DAILY EXELON 4.6mg/24hr (Rivastigmine) 1 Each Patch.td24 1 Patch TP DAILY Depakote Sprinkle (Divalproex Sodium) 125 Mg Cap.sprink 250 Mg PO TID Biofreeze (Menthol) 118 Ml Gel..ml. 1 Ml TP PRN BID PRN Lorazepam 0.5 Mg Tablet 0.5 Mg PO PRN Q4HRS PRN Hydralazine Hcl 25 Mg Tablet 25 Mg PO TID Arthritis Pain (Acetaminophen) 650 Mg Tablet.er 1,300 Mg PO Q8HRS Namenda (Memantine Hcl) 10 Mg Tablet 10 Mg PO DAILY Donepezil Hcl 10 Mg Tablet 10 Mg PO HS Lovastatin 20 Mg Tablet 20 Mg PO HS Micardis Hct 80-12.5 Mg Tablet (Telmisartan/Hydrochlorothiazid) 1 Each Tablet 1 Tab PO DAILY Potassium Gluconate 500 Mg Tablet 500 Mg PO DAILY I have reviewed the current psychotropics carefully including drug interactions. Risk benefit ratio favors no change other than as noted in my dictated progress note. 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
--- NOTE | 2017-05-09 21:48 | PN ---
DATE: 05/08/2017 This is a late entry for 05/08/2017 and covers the elements not covered in my initial note of 05/08/2017. SUBJECTIVE: I met with the patient in the evening of 05/08/2017. The patient has had 1 bag of fluids, creatinine improved from 2.8 to 2. Labs to be repeated, 05/09/2017. She is receiving another bag of fluids. She did have a fall, received a goose bump on her head, no loss of consciousness, we will defer it to Dr. Sanders. She is combative with cares. DPOA give further background history that she stopped eating prior to admission. UA has leukocytes positive, nitrite negative. She did not sleep well the previous evening. Lexapro was changed to Celexa 10 mg a day. REVIEW OF SYSTEMS: Ambulation impaired. No CV, , pulmonary, eye, ENT system symptoms on review. Reliability poor. MENTAL STATUS EXAM: Oriented to herself. Insight, judgment, recent and remote memory, attention, concentration, fund of knowledge poor, consistent with her diagnosis mentioned in my initial note. IMPRESSION: Major neurocognitive disorder, Alzheimer, vascular with depression, delusion, behavioral disturbance. Rest unchanged. PLAN: Change Celexa to Zoloft 25 mg a day for 2 days, then 50 mg a day. Continue rest psychotropics unchanged. MAN Ana EPSTEIN MD DR: USMAN/rogerio JOB#: [id number] / [id number]
[2017-05-10 05:17] VITALS: BP 145/73
[2017-05-10 07:57] LABS: ALBUMIN/GLOBULIN RATIO 0.9 (1.0-1.7); CREATININE 1.2 mg/dL (0.6-1.0); GFR 43.6; POTASSIUM 3.8 mmol/L (3.5-5.1); TOTAL BILIRUBIN 0.4 mg/dL (0.2-1.0); TOTAL PROTEIN 6.4 g/dL (6.4-8.2)
[2017-05-10] MEDS: ACETAMINOPHEN 500 MG TABLET PO SCH ×3 (08:06→19:25)
[2017-05-10] MEDS: VALPROATE ACID 250 MG/5 ML ORAL SOLUTION PO SCH ×3 (08:07→19:25)
[2017-05-10] MEDS: POTASSIUM CHLORIDE 8 MEQ TABLET.ER. PO SCH ×2 (08:07→10:20)
[2017-05-10] MEDS: hydrALAZINE 25 MG TABLET PO SCH ×4 (08:07→19:24)
[2017-05-10] MEDS: MEMANTINE 10 MG TABLET. PO SCH ×2 (08:07→10:20)
[2017-05-10] MEDS: SERTRALINE 25 MG TABLET. PO SCH ×2 (08:07→10:20)
[2017-05-10] MEDS: RIVASTIGMINE 4.6MG PATCH. TD SCH (08:08)
[2017-05-10 15:53] VITALS: BP 130/70
[2017-05-10] MEDS ORDERED: 0.9 % SODIUM CHLORIDE 3ML DISP.SYRIN. IV PRN (16:00)
[2017-05-10] MEDS: QUEtiapine 25 MG TABLET. PO SCH (18:31)
[2017-05-10] MEDS: MEMANTINE 5 MG TABLET. PO SCH (19:25)
[2017-05-10] MEDS: DONEPEZIL HCL 10 MG TABLET PO SCH (19:25)
[2017-05-10] MEDS: ATORVASTATIN CALCIUM 10 MG TABLET. PO SCH (19:25)
--- NOTE | 2017-05-10 20:08 | PDOC ---
Exam Note: Tobin Note: Please also refer to the separate dictated note~for this date of service dictated separately.~Patient seen individually. Discussed the patient with Nursing staff reviewed the chart.~Reviewed interim history and current functioning. Reviewed vital signs,~Labs/ Radiology~and current medications noted below. Continue current treatment with the changes noted in the dictated addendum note Assessment: Vital Signs: Vital Signs Date Time Temp Pulse Resp B/P (MAP) Pulse Ox O2 Delivery O2 Flow Rate FiO2 05/10/17 19:24 71 130/70 05/10/17 15:53 98.9 22 97 05/09/17 16:08 Room Air I&O Intake and Output 05/10/17 07:00 Intake Total 240 ml Balance 240 ml Intake Oral 240 ml # Voids 1 Labs: Laboratory Tests Test 05/10/17 07:05 Sodium Level 148 mmol/L (136-145) H Potassium Level 3.8 mmol/L (3.5-5.1) Chloride Level 114 mmol/L (98-107) H Carbon Dioxide Level 27 mmol/L (21-32) Anion Gap 7 (6-14) Blood Urea Nitrogen 30 mg/dL (7-20) H Creatinine 1.2 mg/dL (0.6-1.0) H Estimated GFR (Cockcroft-Gault) 43.6 BUN/Creatinine Ratio 25 (6-20) H Glucose Level 97 mg/dL (70-99) Calcium Level 9.0 mg/dL (8.5-10.1) Total Bilirubin 0.4 mg/dL (0.2-1.0) Aspartate Amino Transferase (AST) 36 U/L (15-37) Alanine Aminotransferase (ALT) 51 U/L (14-59) Alkaline Phosphatase 66 U/L (46-116) Total Protein 6.4 g/dL (6.4-8.2) Albumin 3.0 g/dL (3.4-5.0) L Albumin/Globulin Ratio 0.9 (1.0-1.7) L Current Medications: Meds: Current Medications Acetaminophen (Tylenol) 500 mg BID PO Last administered on 05/10/17 19:25; Start 05/06/17 at 21:00 Acetaminophen (Tylenol) 650 mg PRN Q6HRS PRN PO PAIN / TEMP Last administered on 05/07/17 07:15; Start 05/06/17 at 14:00 Vitamin D (Vitamin D3) 50,000 unit WEEKLY PO ; Start 05/06/17 at 17:00; Stop 05/06/17 at 17:00; Status DC Divalproex Sodium (Depakote Sprinkles) 250 mg TID PO Last administered on 05/07 07:36; Start 05/06/17 at 14:00; Stop 05/07/17 at 13:09; Status DC Donepezil HCl (Aricept) 10 mg HS PO Last administered on 05/10/17 19:25; Start 05/06/17 at 21:00 Hydralazine HCl (Apresoline) 25 mg TID PO Last administered on 05/10/17 19:24 ; Start 05/06/17 at 14:00 Acetaminophen/ Hydrocodone Bitart (Lortab 5/325) 1 tab PRN Q6HRS PRN PO PAIN; Start 05/06/17 at 14:00; Status UNV Acetaminophen/ Hydrocodone Bitart (Lortab 5/325) 1 tab Q4HRS W/A PRN PO PAIN Last administered on 05/09/17 15:25; Start 05/06/17 at 14:00 Lorazepam (Ativan) 0.5 mg PRN Q4HRS PRN PO ANXIETY / AGITATION Last administered on 05/08/17 05:28; Start 05/06/17 at 14:00 Memantine (Namenda) 5 mg QHS PO Last administered on 05/10/17 19:25; Start 05/06/17 at 21:00 Memantine (Namenda) 10 mg DAILY PO Last administered on 05/09/17 08:09; Start 05/07/17 at 09:00 Rivastigmine (Exelon) 1 patch DAILY TD Last administered on 05/10/17 08:08; Start 05/07/17 at 09:00 Non-Formulary Medication 1,300 mg Q8HRS PO ; Start 05/06/17 at 14:00; Stop at 15:31; Status DC Citalopram Hydrobromide (CeleXA) 10 mg DAILY PO Last administered on 07:47; Start 05/07/17 at 09:00; Stop 05/08/17 at 18:33; Status DC Hydrochlorothiazide (Microzide) 12.5 mg DAILY PO Last administered on 07:34; Start 05/07/17 at 09:00; Stop 05/07/17 at 17:04; Status DC Atorvastatin Calcium (Lipitor) 5 mg QHS PO Last administered on 05/10/17 19: 25; Start 05/06/17 at 21:00 Multi-Ingredient Ointment (Analgesic [place]) 1 rin PRN BID PRN TP PAIN; Start at 15:00 Potassium Chloride (Klor-Con 8) 8 meq DAILYWBKFT PO Last administered on 08:12; Start 05/07/17 at 08:00 Non-Formulary Medication 1 tab DAILY PO ; Start 05/07/17 at 09:00; Status UNV Al Hydroxide/Mg Hydroxide (Mylanta Plus Xs) 15 ml PRN AFTMEALHC PRN PO DYSPEPSIA; Start 05/06/17 at 15:30 Magnesium Hydroxide (Milk Of Magnesia) 2,400 mg PRN QHS PRN PO CONSTIPATION; Start 05/06/17 at 15:30 Losartan Potassium (Cozaar) 100 mg DAILY PO Last administered on 05/07/17 07: 33; Start 05/07/17 at 09:00; Stop 05/07/17 at 17:04; Status DC Vitamin D (Vitamin D3) 50,000 unit WEEKLY PO Last administered on 05/07/17 07 :34; Start 05/07/17 at 09:00; Stop 06/18/17 at 09:01 Olanzapine (ZyPREXA ZYDIS) 2.5 mg PRN Q2HR PRN PO PSYCHOSIS Last administered on 05/06/17 17:57; Start 05/06/17 at 17:45 Valproic Acid (Depakene) 250 mg [id number] PO Last administered on 05/10/17 19:25 ; Start 05/07/17 at 14:00 Sodium Chloride 1,000 ml @ 75 mls/hr [id number] IV Last administered on 09:51; Start 05/07/17 at 17:15; Stop 05/09/17 at 11:41; Status DC Sertraline HCl (Zoloft) 25 mg DAILY PO Last administered on 05/09/17 08:12; Start 05/09/17 at 09:00; Stop 05/11/17 at 08:00 Sertraline HCl (Zoloft) 50 mg DAILY PO ; Start 05/11/17 at 09:00 Sodium Chloride (Normal Saline Flush 3ml) 3 ml QSHIFT PRN IV AFTER MEDS AND BLOOD DRAWS; Start 05/10/17 at 16:00 Quetiapine Fumarate (SEROquel) 12.5 mg [id number] PO Last administered on 18:31; Start 05/10/17 at 18:30 Active Scripts Active Reported D3-50 (Cholecalciferol (Vitamin D3)) 50,000 Unit Capsule 50,000 Unit PO WEEKLY Acetaminophen 500 Mg Tablet 500 Mg PO BID Tylenol (Acetaminophen) 325 Mg Tablet 650 Mg PO PRN Q6HRS PRN [place] 5-325 Tablet (Hydrocodone Bit/Acetaminophen) 1 Each Tablet 1 Tab PO PRN Q6HRS PRN [place] 5-325 Tablet (Hydrocodone Bit/Acetaminophen) 1 Each Tablet 1 Tab PO Q4HRS W/A PRN Namenda (Memantine Hcl) 10 Mg Tablet 5 Mg PO HS Losartan-Hctz 100-12.5 Mg Tab (Losartan/Hydrochlorothiazide) 1 Each Tablet 1 Tab PO DAILY Lexapro (Escitalopram Oxalate) 5 Mg Tablet 5 Mg PO DAILY EXELON 4.6mg/24hr (Rivastigmine) 1 Each Patch.td24 1 Patch TP DAILY Depakote Sprinkle (Divalproex Sodium) 125 Mg Cap.sprink 250 Mg PO TID Biofreeze (Menthol) 118 Ml Gel..ml. 1 Ml TP PRN BID PRN Lorazepam 0.5 Mg Tablet 0.5 Mg PO PRN Q4HRS PRN Hydralazine Hcl 25 Mg Tablet 25 Mg PO TID Arthritis Pain (Acetaminophen) 650 Mg Tablet.er 1,300 Mg PO Q8HRS Namenda (Memantine Hcl) 10 Mg Tablet 10 Mg PO DAILY Donepezil Hcl 10 Mg Tablet 10 Mg PO HS Lovastatin 20 Mg Tablet 20 Mg PO HS [place] Hct 80-12.5 Mg Tablet (Telmisartan/Hydrochlorothiazid) 1 Each Tablet 1 Tab PO DAILY Potassium Gluconate 500 Mg Tablet 500 Mg PO DAILY I have reviewed the current psychotropics carefully including drug interactions. Risk benefit ratio favors no change other than as noted in my dictated progress note. 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
[2017-05-11 05:07] VITALS: BP 136/65
[2017-05-11] MEDS: POTASSIUM CHLORIDE 8 MEQ TABLET.ER. PO SCH (08:00)
[2017-05-11] MEDS: QUEtiapine 25 MG TABLET. PO SCH ×2 (08:27→13:33)
[2017-05-11] MEDS: ACETAMINOPHEN 500 MG TABLET PO SCH ×2 (08:27→19:54)
[2017-05-11] MEDS: RIVASTIGMINE 4.6MG PATCH. TD SCH (08:27)
[2017-05-11] MEDS: MEMANTINE 10 MG TABLET. PO SCH (08:28)
[2017-05-11] MEDS: hydrALAZINE 25 MG TABLET PO SCH ×3 (08:28→19:51)
[2017-05-11] MEDS: VALPROATE ACID 250 MG/5 ML ORAL SOLUTION PO SCH ×3 (08:29→19:53)
[2017-05-11] MEDS: SERTRALINE 50 MG TABLET. PO SCH (08:30)
--- NOTE | 2017-05-11 11:42 | PN ---
DATE: 05/09/2017 PSYCHIATRIC PROGRESS NOTE This late entry, date of service 05/09/2017 covers elements not covered in my initial note of 05/09/2017. SUBJECTIVE: I met with the patient evening of 05/09/2017. IV fluids were discontinued, slept 5-3/4 hours, quite confused, withdrawn. Valproic acid level is 21. Creatinine 1.3, sodium 147, BUN 44: Deferred to Dr. Stewart. REVIEW OF SYSTEMS: Ambulation impaired, in wheelchair. No CV, , pulmonary, eye, ENT system symptoms on review. Reliability poor. MENTAL STATUS EXAM: Oriented to herself. Insight, judgment, recent and remote memory, attention, concentration, fund of knowledge poor, consistent with her diagnosis mentioned in my initial note. IMPRESSION: Major neurocognitive disorder, Alzheimer, vascular with depression, delusion, behavioral disturbance. Rest unchanged. PLAN: Continue psychotropics mentioned in my initial note. MAN Ana EPSTEIN MD DR: USMAN/rogerio JOB#: [id number] / [id number]
[2017-05-11] MEDS ORDERED: IV DEXTROSE 5% 1,000 ML IV ONE (13:15)
[2017-05-11 16:04] VITALS: BP 140/64
--- NOTE | 2017-05-11 19:50 | PDOC ---
Exam Note: Tobin Note: Please also refer to the separate dictated note~for this date of service dictated separately.~Patient seen individually. Discussed the patient with Nursing staff reviewed the chart.~Reviewed interim history and current functioning. Reviewed vital signs,~Labs/ Radiology~and current medications noted below. Continue current treatment with the changes noted in the dictated addendum note Assessment: Vital Signs: Vital Signs Date Time Temp Pulse Resp B/P (MAP) Pulse Ox O2 Delivery O2 Flow Rate FiO2 05/11/17 16:04 98.7 59 16 140/64 (89) 97 05/09/17 16:08 Room Air I&O Intake and Output 05/11/17 06:59 Intake Total 515 ml Balance 515 ml Intake Oral 515 ml # Voids 2 Current Medications: Meds: Current Medications Acetaminophen (Tylenol) 500 mg BID PO Last administered on 05/11/17 08:27; Start 05/06/17 at 21:00 Acetaminophen (Tylenol) 650 mg PRN Q6HRS PRN PO PAIN / TEMP Last administered on 05/07/17 07:15; Start 05/06/17 at 14:00 Vitamin D (Vitamin D3) 50,000 unit WEEKLY PO ; Start 05/06/17 at 17:00; Stop 05/06/17 at 17:00; Status DC Divalproex Sodium (Depakote Sprinkles) 250 mg TID PO Last administered on 05/07 07:36; Start 05/06/17 at 14:00; Stop 05/07/17 at 13:09; Status DC Donepezil HCl (Aricept) 10 mg HS PO Last administered on 05/10/17 19:25; Start 05/06/17 at 21:00 Hydralazine HCl (Apresoline) 25 mg TID PO Last administered on 05/11/17 08:28 ; Start 05/06/17 at 14:00 Acetaminophen/ Hydrocodone Bitart (Lortab 5/325) 1 tab PRN Q6HRS PRN PO PAIN; Start 05/06/17 at 14:00; Status UNV Acetaminophen/ Hydrocodone Bitart (Lortab 5/325) 1 tab Q4HRS W/A PRN PO PAIN Last administered on 05/09/17 15:25; Start 05/06/17 at 14:00 Lorazepam (Ativan) 0.5 mg PRN Q4HRS PRN PO ANXIETY / AGITATION Last administered on 05/08/17 05:28; Start 05/06/17 at 14:00 Memantine (Namenda) 5 mg QHS PO Last administered on 05/10/17 19:25; Start 05/06/17 at 21:00 Memantine (Namenda) 10 mg DAILY PO Last administered on 05/11/17 08:28; Start 05/07/17 at 09:00 Rivastigmine (Exelon) 1 patch DAILY TD Last administered on 05/11/17 08:27; Start 05/07/17 at 09:00 Non-Formulary Medication 1,300 mg Q8HRS PO ; Start 05/06/17 at 14:00; Stop at 15:31; Status DC Citalopram Hydrobromide (CeleXA) 10 mg DAILY PO Last administered on 07:47; Start 05/07/17 at 09:00; Stop 05/08/17 at 18:33; Status DC Hydrochlorothiazide (Microzide) 12.5 mg DAILY PO Last administered on 07:34; Start 05/07/17 at 09:00; Stop 05/07/17 at 17:04; Status DC Atorvastatin Calcium (Lipitor) 5 mg QHS PO Last administered on 05/10/17 19: 25; Start 05/06/17 at 21:00 Multi-Ingredient Ointment (Analgesic [place]) 1 rin PRN BID PRN TP PAIN; Start at 15:00 Potassium Chloride (Klor-Con 8) 8 meq DAILYWBKFT PO Last administered on 08:12; Start 05/07/17 at 08:00 Non-Formulary Medication 1 tab DAILY PO ; Start 05/07/17 at 09:00; Status UNV Al Hydroxide/Mg Hydroxide (Mylanta Plus Xs) 15 ml PRN AFTMEALHC PRN PO DYSPEPSIA; Start 05/06/17 at 15:30 Magnesium Hydroxide (Milk Of Magnesia) 2,400 mg PRN QHS PRN PO CONSTIPATION; Start 05/06/17 at 15:30 Losartan Potassium (Cozaar) 100 mg DAILY PO Last administered on 05/07/17 07: 33; Start 05/07/17 at 09:00; Stop 05/07/17 at 17:04; Status DC Vitamin D (Vitamin D3) 50,000 unit WEEKLY PO Last administered on 05/07/17 07 :34; Start 05/07/17 at 09:00; Stop 06/18/17 at 09:01 Olanzapine (ZyPREXA ZYDIS) 2.5 mg PRN Q2HR PRN PO PSYCHOSIS Last administered on 05/06/17 17:57; Start 05/06/17 at 17:45 Valproic Acid (Depakene) 250 mg [id number] PO Last administered on 05/11/17 08:29 ; Start 05/07/17 at 14:00 Sodium Chloride 1,000 ml @ 75 mls/hr [id number] IV Last administered on 09:51; Start 05/07/17 at 17:15; Stop 05/09/17 at 11:41; Status DC Sertraline HCl (Zoloft) 25 mg DAILY PO Last administered on 05/09/17 08:12; Start 05/09/17 at 09:00; Stop 05/11/17 at 08:00; Status DC Sertraline HCl (Zoloft) 50 mg DAILY PO Last administered on 05/11/17 08:30; Start 05/11/17 at 09:00 Sodium Chloride (Normal Saline Flush 3ml) 3 ml QSHIFT PRN IV AFTER MEDS AND BLOOD DRAWS; Start 05/10/17 at 16:00 Quetiapine Fumarate (SEROquel) 12.5 mg [id number] PO Last administered on 08:27; Start 05/10/17 at 18:30 Dextrose 1,000 ml @ 125 mls/hr 1X ONCE IV Last administered on 05/11/17 13: 51; Start 05/11/17 at 13:15; Stop 05/11/17 at 21:14 Active Scripts Active Reported D3-50 (Cholecalciferol (Vitamin D3)) 50,000 Unit Capsule 50,000 Unit PO WEEKLY Acetaminophen 500 Mg Tablet 500 Mg PO BID Tylenol (Acetaminophen) 325 Mg Tablet 650 Mg PO PRN Q6HRS PRN [place] 5-325 Tablet (Hydrocodone Bit/Acetaminophen) 1 Each Tablet 1 Tab PO PRN Q6HRS PRN [place] 5-325 Tablet (Hydrocodone Bit/Acetaminophen) 1 Each Tablet 1 Tab PO Q4HRS W/A PRN Namenda (Memantine Hcl) 10 Mg Tablet 5 Mg PO HS Losartan-Hctz 100-12.5 Mg Tab (Losartan/Hydrochlorothiazide) 1 Each Tablet 1 Tab PO DAILY Lexapro (Escitalopram Oxalate) 5 Mg Tablet 5 Mg PO DAILY EXELON 4.6mg/24hr (Rivastigmine) 1 Each Patch.td24 1 Patch TP DAILY Depakote Sprinkle (Divalproex Sodium) 125 Mg Cap.sprink 250 Mg PO TID Biofreeze (Menthol) 118 Ml Gel..ml. 1 Ml TP PRN BID PRN Lorazepam 0.5 Mg Tablet 0.5 Mg PO PRN Q4HRS PRN Hydralazine Hcl 25 Mg Tablet 25 Mg PO TID Arthritis Pain (Acetaminophen) 650 Mg Tablet.er 1,300 Mg PO Q8HRS Namenda (Memantine Hcl) 10 Mg Tablet 10 Mg PO DAILY Donepezil Hcl 10 Mg Tablet 10 Mg PO HS Lovastatin 20 Mg Tablet 20 Mg PO HS Micardis Hct 80-12.5 Mg Tablet (Telmisartan/Hydrochlorothiazid) 1 Each Tablet 1 Tab PO DAILY Potassium Gluconate 500 Mg Tablet 500 Mg PO DAILY I have reviewed the current psychotropics carefully including drug interactions. Risk benefit ratio favors no change other than as noted in my dictated progress note. 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
[2017-05-11] MEDS: DONEPEZIL HCL 10 MG TABLET PO SCH (19:53)
[2017-05-11] MEDS: ATORVASTATIN CALCIUM 10 MG TABLET. PO SCH (19:54)
[2017-05-11] MEDS: MEMANTINE 5 MG TABLET. PO SCH (19:54)
[2017-05-12 06:02] VITALS: BP_SYST 138; BP_SYST 97; BP_DIAS 52; BP_DIAS 58
[2017-05-12] MEDS: VALPROATE ACID 250 MG/5 ML ORAL SOLUTION PO SCH ×3 (08:12→19:18)
[2017-05-12] MEDS: QUEtiapine 25 MG TABLET. PO SCH ×2 (08:12→15:15)
[2017-05-12] MEDS: SERTRALINE 50 MG TABLET. PO SCH (08:13)
[2017-05-12] MEDS: MEMANTINE 10 MG TABLET. PO SCH (08:13)
[2017-05-12] MEDS: ACETAMINOPHEN 500 MG TABLET PO SCH ×2 (08:13→19:19)
[2017-05-12] MEDS: RIVASTIGMINE 4.6MG PATCH. TD SCH (08:14)
[2017-05-12] MEDS: hydrALAZINE 25 MG TABLET PO SCH ×3 (08:14→19:20)
[2017-05-12] MEDS: POTASSIUM CHLORIDE 8 MEQ TABLET.ER. PO SCH (08:17)
[2017-05-12] MEDS: LORazepam 0.5 MG TABLET PO PRN (08:17)
--- NOTE | 2017-05-12 09:01 | PN ---
DATE: 05/10/2017 PSYCHIATRIC PROGRESS NOTE This is a late entry 05/10/2017, covers elements not covered in my initial note 05/10/2017. SUBJECTIVE: I met with the patient the evening of 05/10/2017. The patient has had a very difficult day, agitated, labile, crying, tearful, paranoid, depressed, refused to eat and drink when staff attempt to assist her with eating. She is even louder in her crying and wailing. Swallow study is being done. REVIEW OF SYSTEMS: Ambulation impaired, in wheelchair. No CV, , pulmonary, eye, ENT system symptoms on review. Reliability poor. MENTAL STATUS EXAM: Oriented to herself. Insight, judgment, recent and remote memory, attention, concentration, fund of knowledge poor, consistent with her diagnoses mentioned in my initial note. IMPRESSION: Major neurocognitive disorder, Alzheimer, vascular with depression, delusion, behavioral disturbance. Rest unchanged from initial note. PLAN: Continue psychotropics mentioned in my initial note including Depakene, Namenda, Ativan p.r.n., Aricept, Zoloft, which is being increased, Zyprexa p.r.n. Start Seroquel 12.5 mg at 9:00 a.m. and 2:00 p.m., given another dosage of 12.5 mg at 6:00 p.m. on 05/10/2017 one time due to her marked mood lability, yelling, crying. NEHEMIAS EPSTEIN MD DR: USMAN/rogerio JOB#: [id number] / [id number]
[2017-05-12] MEDS: HYDROcodone/APAP 5/325MG 1 TAB TABLET PO PRN ×2 (11:41→17:02)
[2017-05-12 16:02] VITALS: BP 176/69
[2017-05-12] MEDS: DONEPEZIL HCL 10 MG TABLET PO SCH (19:18)
[2017-05-12] MEDS: MEMANTINE 5 MG TABLET. PO SCH (19:19)
[2017-05-12] MEDS: ATORVASTATIN CALCIUM 10 MG TABLET. PO SCH (19:19)
--- NOTE | 2017-05-12 19:56 | PDOC ---
Exam Note: Tobin Note: VS - Last 72 Hours, by Label Date Time Temp Pulse Resp B/P (MAP) Pulse Ox O2 Delivery O2 Flow Rate FiO2 05/12/17 19:20 87 176/69 05/12/17 16:02 97.5 87 20 176/69 (104) 97 Room Air 05/12/17 15:15 87 176/69 05/12/17 11:41 16 97 05/12/17 08:14 66 138/52 05/12/17 06:02 98.6 66 20 138/52 (80) 97 05/11/17 19:51 59 140/64 05/11/17 16:04 98.7 59 16 140/64 (89) 97 05/11/17 14:00 60 136/65 05/11/17 08:28 60 136/65 05/11/17 05:07 97.3 60 16 136/65 (88) 97 05/10/17 19:24 71 130/70 05/10/17 15:53 98.9 71 22 130/70 (90) 97 05/10/17 14:21 66 158/56 05/10/17 05:17 97.8 57 16 145/73 (97) 96 Please also refer to the separate dictated note~for this date of service dictated separately.~Patient seen individually. Discussed the patient with Nursing staff reviewed the chart.~Reviewed interim history and current functioning. Reviewed vital signs,~Labs/ Radiology~and current medications noted below. Continue current treatment with the changes noted in the dictated addendum note Assessment: Vital Signs: Vital Signs Date Time Temp Pulse Resp B/P (MAP) Pulse Ox O2 Delivery O2 Flow Rate FiO2 05/12/17 19:20 87 176/69 05/12/17 16:02 97.5 20 97 Room Air I&O Intake and Output 05/12/17 07:00 Intake Total 2240 ml Balance 2240 ml Intake Oral 240 ml IV Total 1000 ml Other 1000 ml Current Medications: Meds: Current Medications Acetaminophen (Tylenol) 500 mg BID PO Last administered on 05/12/17 19:19; Start 05/06/17 at 21:00 Acetaminophen (Tylenol) 650 mg PRN Q6HRS PRN PO PAIN / TEMP Last administered on 05/07/17 07:15; Start 05/06/17 at 14:00 Vitamin D (Vitamin D3) 50,000 unit WEEKLY PO ; Start 05/06/17 at 17:00; Stop 05/06/17 at 17:00; Status DC Divalproex Sodium (Depakote Sprinkles) 250 mg TID PO Last administered on 05/07 07:36; Start 05/06/17 at 14:00; Stop 05/07/17 at 13:09; Status DC Donepezil HCl (Aricept) 10 mg HS PO Last administered on 05/12/17 19:18; Start 05/06/17 at 21:00 Hydralazine HCl (Apresoline) 25 mg TID PO Last administered on 05/12/17 19:20 ; Start 05/06/17 at 14:00 Acetaminophen/ Hydrocodone Bitart (Lortab 5/325) 1 tab PRN Q6HRS PRN PO PAIN; Start 05/06/17 at 14:00; Status UNV Acetaminophen/ Hydrocodone Bitart (Lortab 5/325) 1 tab Q4HRS W/A PRN PO PAIN Last administered on 05/12/17 17:02; Start 05/06/17 at 14:00 Lorazepam (Ativan) 0.5 mg PRN Q4HRS PRN PO ANXIETY / AGITATION Last administered on 05/12/17 08:17; Start 05/06/17 at 14:00 Memantine (Namenda) 5 mg QHS PO Last administered on 05/12/17 19:19; Start 05/06/17 at 21:00 Memantine (Namenda) 10 mg DAILY PO Last administered on 05/12/17 08:13; Start 05/07/17 at 09:00 Rivastigmine (Exelon) 1 patch DAILY TD Last administered on 05/12/17 08:14; Start 05/07/17 at 09:00 Non-Formulary Medication 1,300 mg Q8HRS PO ; Start 05/06/17 at 14:00; Stop at 15:31; Status DC Citalopram Hydrobromide (CeleXA) 10 mg DAILY PO Last administered on 07:47; Start 05/07/17 at 09:00; Stop 05/08/17 at 18:33; Status DC Hydrochlorothiazide (Microzide) 12.5 mg DAILY PO Last administered on 07:34; Start 05/07/17 at 09:00; Stop 05/07/17 at 17:04; Status DC Atorvastatin Calcium (Lipitor) 5 mg QHS PO Last administered on 05/12/17 19: 19; Start 05/06/17 at 21:00 Multi-Ingredient Ointment (Analgesic [place]) 1 rin PRN BID PRN TP PAIN; Start at 15:00 Potassium Chloride (Klor-Con 8) 8 meq DAILYWBKFT PO Last administered on 08:17; Start 05/07/17 at 08:00 Non-Formulary Medication 1 tab DAILY PO ; Start 05/07/17 at 09:00; Status UNV Al Hydroxide/Mg Hydroxide (Mylanta Plus Xs) 15 ml PRN AFTMEALHC PRN PO DYSPEPSIA; Start 05/06/17 at 15:30 Magnesium Hydroxide (Milk Of Magnesia) 2,400 mg PRN QHS PRN PO CONSTIPATION; Start 05/06/17 at 15:30 Losartan Potassium (Cozaar) 100 mg DAILY PO Last administered on 05/07/17 07: 33; Start 05/07/17 at 09:00; Stop 05/07/17 at 17:04; Status DC Vitamin D (Vitamin D3) 50,000 unit WEEKLY PO Last administered on 05/07/17 07 :34; Start 05/07/17 at 09:00; Stop 06/18/17 at 09:01 Olanzapine (ZyPREXA ZYDIS) 2.5 mg PRN Q2HR PRN PO PSYCHOSIS Last administered on 05/12/17 11:41; Start 05/06/17 at 17:45 Valproic Acid (Depakene) 250 mg [id number] PO Last administered on 05/12/17 19:18 ; Start 05/07/17 at 14:00 Sodium Chloride 1,000 ml @ 75 mls/hr [id number] IV Last administered on 09:51; Start 05/07/17 at 17:15; Stop 05/09/17 at 11:41; Status DC Sertraline HCl (Zoloft) 25 mg DAILY PO Last administered on 05/09/17 08:12; Start 05/09/17 at 09:00; Stop 05/11/17 at 08:00; Status DC Sertraline HCl (Zoloft) 50 mg DAILY PO Last administered on 05/12/17 08:13; Start 05/11/17 at 09:00 Sodium Chloride (Normal Saline Flush 3ml) 3 ml QSHIFT PRN IV AFTER MEDS AND BLOOD DRAWS; Start 05/10/17 at 16:00 Quetiapine Fumarate (SEROquel) 12.5 mg [id number] PO Last administered on 15:15; Start 05/10/17 at 18:30 Dextrose 1,000 ml @ 125 mls/hr 1X ONCE IV Last administered on 05/11/17 13: 51; Start 05/11/17 at 13:15; Stop 05/11/17 at 21:14; Status DC Active Scripts Active Reported D3-50 (Cholecalciferol (Vitamin D3)) 50,000 Unit Capsule 50,000 Unit PO WEEKLY Acetaminophen 500 Mg Tablet 500 Mg PO BID Tylenol (Acetaminophen) 325 Mg Tablet 650 Mg PO PRN Q6HRS PRN [place] 5-325 Tablet (Hydrocodone Bit/Acetaminophen) 1 Each Tablet 1 Tab PO PRN Q6HRS PRN [place] 5-325 Tablet (Hydrocodone Bit/Acetaminophen) 1 Each Tablet 1 Tab PO Q4HRS W/A PRN Namenda (Memantine Hcl) 10 Mg Tablet 5 Mg PO HS Losartan-Hctz 100-12.5 Mg Tab (Losartan/Hydrochlorothiazide) 1 Each Tablet 1 Tab PO DAILY Lexapro (Escitalopram Oxalate) 5 Mg Tablet 5 Mg PO DAILY EXELON 4.6mg/24hr (Rivastigmine) 1 Each Patch.td24 1 Patch TP DAILY Depakote Sprinkle (Divalproex Sodium) 125 Mg Cap.sprink 250 Mg PO TID Biofreeze (Menthol) 118 Ml Gel..ml. 1 Ml TP PRN BID PRN Lorazepam 0.5 Mg Tablet 0.5 Mg PO PRN Q4HRS PRN Hydralazine Hcl 25 Mg Tablet 25 Mg PO TID Arthritis Pain (Acetaminophen) 650 Mg Tablet.er 1,300 Mg PO Q8HRS Namenda (Memantine Hcl) 10 Mg Tablet 10 Mg PO DAILY Donepezil Hcl 10 Mg Tablet 10 Mg PO HS Lovastatin 20 Mg Tablet 20 Mg PO HS Micardis Hct 80-12.5 Mg Tablet (Telmisartan/Hydrochlorothiazid) 1 Each Tablet 1 Tab PO DAILY Potassium Gluconate 500 Mg Tablet 500 Mg PO DAILY I have reviewed the current psychotropics carefully including drug interactions. Risk benefit ratio favors no change other than as noted in my dictated progress note. 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
[2017-05-13] MEDS ORDERED: ATOR10TA PO (01:12)
[2017-05-13] MEDS ORDERED: MAG30ORA2 PO (01:18)
[2017-05-13] MEDS ORDERED: METH29OI TP (01:19)
[2017-05-13] MEDS ORDERED: MAGN2400 PO (01:19)
[2017-05-13] MEDS ORDERED: OLAN2.5T3 PO (01:20)
[2017-05-13] MEDS ORDERED: POTA8TAB PO (01:23)
[2017-05-13] MEDS ORDERED: QUET25TA5 PO (01:24)
[2017-05-13] MEDS ORDERED: SERT50TA PO (01:26)
[2017-05-13] MEDS ORDERED: HYDR-2868 PO (01:27)
[2017-05-13] MEDS ORDERED: VALP250S PO (01:29)
[2017-05-13 05:57] VITALS: BP 107/60
[2017-05-13] MEDS: ACETAMINOPHEN 500 MG TABLET PO SCH ×2 (08:03→19:47)
[2017-05-13] MEDS: hydrALAZINE 25 MG TABLET PO SCH ×3 (08:04→19:46)
[2017-05-13] MEDS: QUEtiapine 25 MG TABLET. PO SCH ×2 (08:04→15:29)
[2017-05-13] MEDS: MEMANTINE 10 MG TABLET. PO SCH (08:04)
[2017-05-13] MEDS: SERTRALINE 50 MG TABLET. PO SCH (08:05)
[2017-05-13] MEDS: VALPROATE ACID 250 MG/5 ML ORAL SOLUTION PO SCH ×3 (08:05→19:47)
[2017-05-13] MEDS: RIVASTIGMINE 4.6MG PATCH. TD SCH (08:06)
[2017-05-13] MEDS: POTASSIUM CHLORIDE 8 MEQ TABLET.ER. PO SCH (08:08)
[2017-05-13] MEDS: LORazepam 0.5 MG TABLET PO PRN (09:00)
[2017-05-13 15:57] LABS: BASO # 0.1 x10^3/uL (0.0-0.2); BASO % 1 % (0-3); EOS # 0.1 x10^3/uL (0.0-0.7); EOS % 1 % (0-3); HEMATOCRIT 34.5 % (36.0-47.0); HEMOGLOBIN 11.9 g/dL (12.0-15.5); LYMPH # 1.4 x10^3/uL (1.0-4.8); LYMPH % 16 % (24-48); MEAN CORPUSCULAR HEMOGLOBIN 32 pg (25-35); MEAN CORPUSCULAR HGB CONC 34 g/dL (31-37); MEAN CORPUSCULAR VOLUME 92 fL (79-100); MONO # 1.1 x10^3/uL (0.0-1.1); MONO % 13 % (0-9); NEUT # 6.1 x10^3uL (1.8-7.7); NEUT % 69 % (31-73); PLATELET COUNT 201 x10^3/uL (140-400); RED BLOOD COUNT 3.75 x10^6/uL (3.50-5.40); RED CELL DISTRIBUTION WIDTH 13.6 % (11.5-14.5); WHITE BLOOD COUNT 8.8 x10^3/uL (4.0-11.0)
[2017-05-13 16:00] VITALS: BP 131/67
[2017-05-13 16:11] LABS: ALBUMIN 3.2 g/dL (3.4-5.0); ALBUMIN/GLOBULIN RATIO 0.9 (1.0-1.7); CALCIUM 9.3 mg/dL (8.5-10.1); CREATININE 1.2 mg/dL (0.6-1.0); GFR 43.6; POTASSIUM 3.9 mmol/L (3.5-5.1); TOTAL BILIRUBIN 0.4 mg/dL (0.2-1.0); TOTAL PROTEIN 6.9 g/dL (6.4-8.2)
--- NOTE | 2017-05-13 17:49 | PDOC ---
Exam Note: Tobin Note: Please also refer to the separate dictated note~for this date of service dictated separately.~Patient seen individually. Discussed the patient with Nursing staff reviewed the chart.~Reviewed interim history and current functioning. Reviewed vital signs,~Labs/ Radiology~and current medications noted below. Continue current treatment with the changes noted in the dictated addendum note Assessment: Vital Signs: Vital Signs Date Time Temp Pulse Resp B/P (MAP) Pulse Ox O2 Delivery O2 Flow Rate FiO2 05/13/17 16:00 98.8 58 16 131/67 (88) 98 05/12/17 16:02 Room Air I&O Intake and Output 05/13/17 06:59 Intake Total 0 ml Balance 0 ml Intake Oral 0 ml Labs: Laboratory Tests Test 05/13/17 15:50 White Blood Count 8.8 x10^3/uL (4.0-11.0) Red Blood Count 3.75 x10^6/uL (3.50-5.40) Hemoglobin 11.9 g/dL (12.0-15.5) L Hematocrit 34.5 % (36.0-47.0) L Mean Corpuscular Volume 92 fL (79-100) Mean Corpuscular Hemoglobin 32 pg (25-35) Mean Corpuscular Hemoglobin Concent 34 g/dL (31-37) Red Cell Distribution Width 13.6 % (11.5-14.5) Platelet Count 201 x10^3/uL (140-400) Neutrophils (%) (Auto) 69 % (31-73) Lymphocytes (%) (Auto) 16 % (24-48) L Monocytes (%) (Auto) 13 % (0-9) H Eosinophils (%) (Auto) 1 % (0-3) Basophils (%) (Auto) 1 % (0-3) Neutrophils # (Auto) 6.1 x10^3uL (1.8-7.7) Lymphocytes # (Auto) 1.4 x10^3/uL (1.0-4.8) Monocytes # (Auto) 1.1 x10^3/uL (0.0-1.1) Eosinophils # (Auto) 0.1 x10^3/uL (0.0-0.7) Basophils # (Auto) 0.1 x10^3/uL (0.0-0.2) Sodium Level 147 mmol/L (136-145) H Potassium Level 3.9 mmol/L (3.5-5.1) Chloride Level 110 mmol/L (98-107) H Carbon Dioxide Level 31 mmol/L (21-32) Anion Gap 6 (6-14) Blood Urea Nitrogen 26 mg/dL (7-20) H Creatinine 1.2 mg/dL (0.6-1.0) H Estimated GFR (Cockcroft-Gault) 43.6 BUN/Creatinine Ratio 22 (6-20) H Glucose Level 101 mg/dL (70-99) H Calcium Level 9.3 mg/dL (8.5-10.1) Total Bilirubin 0.4 mg/dL (0.2-1.0) Aspartate Amino Transferase (AST) 26 U/L (15-37) Alanine Aminotransferase (ALT) 39 U/L (14-59) Alkaline Phosphatase 83 U/L (46-116) Total Protein 6.9 g/dL (6.4-8.2) Albumin 3.2 g/dL (3.4-5.0) L Albumin/Globulin Ratio 0.9 (1.0-1.7) L Current Medications: Meds: Current Medications Acetaminophen (Tylenol) 500 mg BID PO Last administered on 05/13/17 08:03; Start 05/06/17 at 21:00 Acetaminophen (Tylenol) 650 mg PRN Q6HRS PRN PO PAIN / TEMP Last administered on 05/07/17 07:15; Start 05/06/17 at 14:00 Vitamin D (Vitamin D3) 50,000 unit WEEKLY PO ; Start 05/06/17 at 17:00; Stop 05/06/17 at 17:00; Status DC Divalproex Sodium (Depakote Sprinkles) 250 mg TID PO Last administered on 05/07 07:36; Start 05/06/17 at 14:00; Stop 05/07/17 at 13:09; Status DC Donepezil HCl (Aricept) 10 mg HS PO Last administered on 05/12/17 19:18; Start 05/06/17 at 21:00; Stop 05/13/17 at 08:29; Status DC Hydralazine HCl (Apresoline) 25 mg TID PO Last administered on 05/13/17 15:29 ; Start 05/06/17 at 14:00 Acetaminophen/ Hydrocodone Bitart (Lortab 5/325) 1 tab PRN Q6HRS PRN PO PAIN; Start 05/06/17 at 14:00; Status UNV Acetaminophen/ Hydrocodone Bitart (Lortab 5/325) 1 tab Q4HRS W/A PRN PO PAIN Last administered on 05/12/17 17:02; Start 05/06/17 at 14:00 Lorazepam (Ativan) 0.5 mg PRN Q4HRS PRN PO ANXIETY / AGITATION Last administered on 05/13/17 09:00; Start 05/06/17 at 14:00 Memantine (Namenda) 5 mg QHS PO Last administered on 05/12/17 19:19; Start 05/06/17 at 21:00; Stop 05/13/17 at 08:29; Status DC Memantine (Namenda) 10 mg DAILY PO Last administered on 05/13/17 08:04; Start 05/07/17 at 09:00; Stop 05/13/17 at 08:29; Status DC Rivastigmine (Exelon) 1 patch DAILY TD Last administered on 05/13/17 08:06; Start 05/07/17 at 09:00; Stop 05/13/17 at 08:29; Status DC Non-Formulary Medication 1,300 mg Q8HRS PO ; Start 05/06/17 at 14:00; Stop at 15:31; Status DC Citalopram Hydrobromide (CeleXA) 10 mg DAILY PO Last administered on 07:47; Start 05/07/17 at 09:00; Stop 05/08/17 at 18:33; Status DC Hydrochlorothiazide (Microzide) 12.5 mg DAILY PO Last administered on 07:34; Start 05/07/17 at 09:00; Stop 05/07/17 at 17:04; Status DC Atorvastatin Calcium (Lipitor) 5 mg QHS PO Last administered on 05/12/17 19: 19; Start 05/06/17 at 21:00 Multi-Ingredient Ointment (Analgesic [place]) 1 ira PRN BID PRN TP PAIN; Start at 15:00 Potassium Chloride (Klor-Con 8) 8 meq DAILYWBKFT PO Last administered on 08:08; Start 05/07/17 at 08:00 Non-Formulary Medication 1 tab DAILY PO ; Start 05/07/17 at 09:00; Status UNV Al Hydroxide/Mg Hydroxide (Mylanta Plus Xs) 15 ml PRN AFTMEALHC PRN PO DYSPEPSIA; Start 05/06/17 at 15:30 Magnesium Hydroxide (Milk Of Magnesia) 2,400 mg PRN QHS PRN PO CONSTIPATION Last administered on 05/13/17 08:18; Start 05/06/17 at 15:30 Losartan Potassium (Cozaar) 100 mg DAILY PO Last administered on 05/07/17 07: 33; Start 05/07/17 at 09:00; Stop 05/07/17 at 17:04; Status DC Vitamin D (Vitamin D3) 50,000 unit WEEKLY PO Last administered on 05/07/17 07 :34; Start 05/07/17 at 09:00; Stop 06/18/17 at 09:01 Olanzapine (ZyPREXA ZYDIS) 2.5 mg PRN Q2HR PRN PO PSYCHOSIS Last administered on 05/12/17 11:41; Start 05/06/17 at 17:45 Valproic Acid (Depakene) 250 mg [id number] PO Last administered on 05/13/17 15:28 ; Start 05/07/17 at 14:00 Sodium Chloride 1,000 ml @ 75 mls/hr [id number] IV Last administered on 09:51; Start 05/07/17 at 17:15; Stop 05/09/17 at 11:41; Status DC Sertraline HCl (Zoloft) 25 mg DAILY PO Last administered on 05/09/17 08:12; Start 05/09/17 at 09:00; Stop 05/11/17 at 08:00; Status DC Sertraline HCl (Zoloft) 50 mg DAILY PO Last administered on 05/13/17 08:05; Start 05/11/17 at 09:00 Sodium Chloride (Normal Saline Flush 3ml) 3 ml QSHIFT PRN IV AFTER MEDS AND BLOOD DRAWS; Start 05/10/17 at 16:00 Quetiapine Fumarate (SEROquel) 12.5 mg [id number] PO Last administered on 15:29; Start 05/10/17 at 18:30; Stop 05/13/17 at 17:38; Status DC Dextrose 1,000 ml @ 125 mls/hr 1X ONCE IV Last administered on 05/11/17t 13: 51; Start 05/11/17 at 13:15; Stop 05/11/17 at 21:14; Status DC Morphine Sulfate (Roxanol Conc) 5 mg PRN Q3HRS PRN SL PAIN; Start 05/13/17 at 13:00 Quetiapine Fumarate (SEROquel) 12.5 mg TID@0900,1300,1700 PO ; Start 05/14/17 at 09:00 Active Scripts Active Reported Depakene (Valproate Sodium) 250 Mg/5 Ml Solution 250 Mg PO [id number] Hydralazine Hcl 25 Mg Tablet 25 Mg PO TID Zoloft (Sertraline Hcl) 50 Mg Tablet 50 Mg PO DAILY Seroquel (Quetiapine Fumarate) 25 Mg Tablet 12.5 Mg PO [id number] Klor-Con 8 (Potassium Chloride) 8 Meq Tablet.er 8 Meq PO DAILYWBKFT Zyprexa (Olanzapine) 2.5 Mg Tablet 2.5 Mg PO PRN Q2HR PRN Analgesic [place] (Methyl Salicylate/Menthol) 28 Gm Oint...g. 1 [place] TP PRN BID PRN Milk Of Magnesia (Magnesium Hydroxide) 2,400 Mg/10 Ml Oral.susp 2,400 Mg PO PRN QHS PRN Mag-Al Plus Xs Suspension (Mag Hydrox/Al Hydrox/Simeth) 30 Ml Oral.susp 15 Ml PO PRN AFTMEALHC PRN Lipitor (Atorvastatin Calcium) 10 Mg Tablet 5 Mg PO HS D3-50 (Cholecalciferol (Vitamin D3)) 50,000 Unit Capsule 50,000 Unit PO WEEKLY Acetaminophen 500 Mg Tablet 500 Mg PO BID Tylenol (Acetaminophen) 325 Mg Tablet 650 Mg PO PRN Q6HRS PRN [place] 5-325 Tablet (Hydrocodone Bit/Acetaminophen) 1 Each Tablet 1 Tab PO PRN Q6HRS PRN [place] 5-325 Tablet (Hydrocodone Bit/Acetaminophen) 1 Each Tablet 1 Tab PO Q4HRS W/A PRN Namenda (Memantine Hcl) 10 Mg Tablet 5 Mg PO HS Losartan-Hctz 100-12.5 Mg Tab (Losartan/Hydrochlorothiazide) 1 Each Tablet 1 Tab PO DAILY Lexapro (Escitalopram Oxalate) 5 Mg Tablet 5 Mg PO DAILY EXELON 4.6mg/24hr (Rivastigmine) 1 Each Patch.td24 1 Patch TP DAILY Depakote Sprinkle (Divalproex Sodium) 125 Mg Cap.sprink 250 Mg PO TID Biofreeze (Menthol) 118 Ml Gel..ml. 1 Ml TP PRN BID PRN Lorazepam 0.5 Mg Tablet 0.5 Mg PO PRN Q4HRS PRN Hydralazine Hcl 25 Mg Tablet 25 Mg PO TID Arthritis Pain (Acetaminophen) 650 Mg Tablet.er 1,300 Mg PO Q8HRS Namenda (Memantine Hcl) 10 Mg Tablet 10 Mg PO DAILY Donepezil Hcl 10 Mg Tablet 10 Mg PO HS Lovastatin 20 Mg Tablet 20 Mg PO HS [place]ard[place] Hct 80-12.5 Mg Tablet (Telmisartan/Hydrochlorothiazid) 1 Each Tablet 1 Tab PO DAILY Potassium Gluconate 500 Mg Tablet 500 Mg PO DAILY I have reviewed the current psychotropics carefully including drug interactions. Risk benefit ratio favors no change other than as noted in my dictated progress note. Diagnosis: Problems: (1) Impulse control disorder (2) Behavior concern (3) Dilutional hyponatremia (4) Mixed Alzheimer's and vascular dementia with behavior disturbances (5) Major neurocognitive disorder (6) Anxiety disorder NEHEMIAS EPSTEIN MD May 13, 2017 17:49
[2017-05-13] MEDS: ATORVASTATIN CALCIUM 10 MG TABLET. PO SCH (19:47)
--- NOTE | 2017-05-13 19:52 | PDOC ---
Exam Note: Tobin Note: Please also refer to the separate dictated note~for this date of service dictated separately.~Patient seen individually. Discussed the patient with Nursing staff reviewed the chart.~Reviewed interim history and current functioning. Reviewed vital signs,~Labs/ Radiology~and current medications noted below. Continue current treatment with the changes noted in the dictated addendum note Assessment: Vital Signs: Vital Signs Date Time Temp Pulse Resp B/P (MAP) Pulse Ox O2 Delivery O2 Flow Rate FiO2 05/13/17 19:46 63 142/55 05/13/17 16:00 98.8 16 98 05/12/17 16:02 Room Air I&O Intake and Output 05/13/17 07:00 Intake Total 0 ml Balance 0 ml Intake Oral 0 ml Labs: Laboratory Tests Test 05/13/17 15:50 White Blood Count 8.8 x10^3/uL (4.0-11.0) Red Blood Count 3.75 x10^6/uL (3.50-5.40) Hemoglobin 11.9 g/dL (12.0-15.5) L Hematocrit 34.5 % (36.0-47.0) L Mean Corpuscular Volume 92 fL (79-100) Mean Corpuscular Hemoglobin 32 pg (25-35) Mean Corpuscular Hemoglobin Concent 34 g/dL (31-37) Red Cell Distribution Width 13.6 % (11.5-14.5) Platelet Count 201 x10^3/uL (140-400) Neutrophils (%) (Auto) 69 % (31-73) Lymphocytes (%) (Auto) 16 % (24-48) L Monocytes (%) (Auto) 13 % (0-9) H Eosinophils (%) (Auto) 1 % (0-3) Basophils (%) (Auto) 1 % (0-3) Neutrophils # (Auto) 6.1 x10^3uL (1.8-7.7) Lymphocytes # (Auto) 1.4 x10^3/uL (1.0-4.8) Monocytes # (Auto) 1.1 x10^3/uL (0.0-1.1) Eosinophils # (Auto) 0.1 x10^3/uL (0.0-0.7) Basophils # (Auto) 0.1 x10^3/uL (0.0-0.2) Sodium Level 147 mmol/L (136-145) H Potassium Level 3.9 mmol/L (3.5-5.1) Chloride Level 110 mmol/L (98-107) H Carbon Dioxide Level 31 mmol/L (21-32) Anion Gap 6 (6-14) Blood Urea Nitrogen 26 mg/dL (7-20) H Creatinine 1.2 mg/dL (0.6-1.0) H Estimated GFR (Cockcroft-Gault) 43.6 BUN/Creatinine Ratio 22 (6-20) H Glucose Level 101 mg/dL (70-99) H Calcium Level 9.3 mg/dL (8.5-10.1) Total Bilirubin 0.4 mg/dL (0.2-1.0) Aspartate Amino Transferase (AST) 26 U/L (15-37) Alanine Aminotransferase (ALT) 39 U/L (14-59) Alkaline Phosphatase 83 U/L (46-116) Total Protein 6.9 g/dL (6.4-8.2) Albumin 3.2 g/dL (3.4-5.0) L Albumin/Globulin Ratio 0.9 (1.0-1.7) L Current Medications: Meds: Current Medications Acetaminophen (Tylenol) 500 mg BID PO Last administered on 05/13/17 19:47; Start 05/06/17 at 21:00 Acetaminophen (Tylenol) 650 mg PRN Q6HRS PRN PO PAIN / TEMP Last administered on 05/07/17 07:15; Start 05/06/17 at 14:00 Vitamin D (Vitamin D3) 50,000 unit WEEKLY PO ; Start 05/06/17 at 17:00; Stop 05/06/17 at 17:00; Status DC Divalproex Sodium (Depakote Sprinkles) 250 mg TID PO Last administered on 05/07 07:36; Start 05/06/17 at 14:00; Stop 05/07/17 at 13:09; Status DC Donepezil HCl (Aricept) 10 mg HS PO Last administered on 05/12/17 19:18; Start 05/06/17 at 21:00; Stop 05/13/17 at 08:29; Status DC Hydralazine HCl (Apresoline) 25 mg TID PO Last administered on 05/13/17 19:46 ; Start 05/06/17 at 14:00 Acetaminophen/ Hydrocodone Bitart (Lortab 5/325) 1 tab PRN Q6HRS PRN PO PAIN; Start 05/06/17 at 14:00; Status UNV Acetaminophen/ Hydrocodone Bitart (Lortab 5/325) 1 tab Q4HRS W/A PRN PO PAIN Last administered on 05/12/17 17:02; Start 05/06/17 at 14:00 Lorazepam (Ativan) 0.5 mg PRN Q4HRS PRN PO ANXIETY / AGITATION Last administered on 05/13/17 09:00; Start 05/06/17 at 14:00 Memantine (Namenda) 5 mg QHS PO Last administered on 05/12/17 19:19; Start 05/06/17 at 21:00; Stop 05/13/17 at 08:29; Status DC Memantine (Namenda) 10 mg DAILY PO Last administered on 05/13/17 08:04; Start 05/07/17 at 09:00; Stop 05/13/17 at 08:29; Status DC Rivastigmine (Exelon) 1 patch DAILY TD Last administered on 05/13/17 08:06; Start 05/07/17 at 09:00; Stop 05/13/17 at 08:29; Status DC Non-Formulary Medication 1,300 mg Q8HRS PO ; Start 05/06/17 at 14:00; Stop at 15:31; Status DC Citalopram Hydrobromide (CeleXA) 10 mg DAILY PO Last administered on 07:47; Start 05/07/17 at 09:00; Stop 05/08/17 at 18:33; Status DC Hydrochlorothiazide (Microzide) 12.5 mg DAILY PO Last administered on 07:34; Start 05/07/17 at 09:00; Stop 05/07/17 at 17:04; Status DC Atorvastatin Calcium (Lipitor) 5 mg QHS PO Last administered on 05/13/17 19: 47; Start 05/06/17 at 21:00 Multi-Ingredient Ointment (Analgesic [place]) 1 ira PRN BID PRN TP PAIN; Start at 15:00 Potassium Chloride (Klor-Con 8) 8 meq DAILYWBKFT PO Last administered on 08:08; Start 05/07/17 at 08:00 Non-Formulary Medication 1 tab DAILY PO ; Start 05/07/17 at 09:00; Status UNV Al Hydroxide/Mg Hydroxide (Mylanta Plus Xs) 15 ml PRN AFTMEALHC PRN PO DYSPEPSIA; Start 05/06/17 at 15:30 Magnesium Hydroxide (Milk Of Magnesia) 2,400 mg PRN QHS PRN PO CONSTIPATION Last administered on 05/13/17 08:18; Start 05/06/17 at 15:30 Losartan Potassium (Cozaar) 100 mg DAILY PO Last administered on 05/07/17 07: 33; Start 05/07/17 at 09:00; Stop 05/07/17 at 17:04; Status DC Vitamin D (Vitamin D3) 50,000 unit WEEKLY PO Last administered on 05/07/17 07 :34; Start 05/07/17 at 09:00; Stop 06/18/17 at 09:01 Olanzapine (ZyPREXA ZYDIS) 2.5 mg PRN Q2HR PRN PO PSYCHOSIS Last administered on 05/12/17 11:41; Start 05/06/17 at 17:45 Valproic Acid (Depakene) 250 mg [id number] PO Last administered on 05/13/17 19:47 ; Start 05/07/17 at 14:00 Sodium Chloride 1,000 ml @ 75 mls/hr [id number] IV Last administered on 09:51; Start 05/07/17 at 17:15; Stop 05/09/17 at 11:41; Status DC Sertraline HCl (Zoloft) 25 mg DAILY PO Last administered on 05/09/17 08:12; Start 05/09/17 at 09:00; Stop 05/11/17 at 08:00; Status DC Sertraline HCl (Zoloft) 50 mg DAILY PO Last administered on 05/13/17 08:05; Start 05/11/17 at 09:00 Sodium Chloride (Normal Saline Flush 3ml) 3 ml QSHIFT PRN IV AFTER MEDS AND BLOOD DRAWS; Start 05/10/17 at 16:00 Quetiapine Fumarate (SEROquel) 12.5 mg [id number] PO Last administered on 15:29; Start 05/10/17 at 18:30; Stop 05/13/17 at 17:38; Status DC Dextrose 1,000 ml @ 125 mls/hr 1X ONCE IV Last administered on 05/11/17 13: 51; Start 05/11/17 at 13:15; Stop 05/11/17 at 21:14; Status DC Morphine Sulfate (Roxanol Conc) 5 mg PRN Q3HRS PRN SL PAIN; Start 05/13/17 at 13:00 Quetiapine Fumarate (SEROquel) 12.5 mg TID@0900,1300,1700 PO ; Start 05/14/17 at 09:00 Active Scripts Active Reported Depakene (Valproate Sodium) 250 Mg/5 Ml Solution 250 Mg PO [id number] Hydralazine Hcl 25 Mg Tablet 25 Mg PO TID Zoloft (Sertraline Hcl) 50 Mg Tablet 50 Mg PO DAILY Seroquel (Quetiapine Fumarate) 25 Mg Tablet 12.5 Mg PO [id number] Klor-Con 8 (Potassium Chloride) 8 Meq Tablet.er 8 Meq PO DAILYWBKFT Zyprexa (Olanzapine) 2.5 Mg Tablet 2.5 Mg PO PRN Q2HR PRN Analgesic [place] (Methyl Salicylate/Menthol) 28 Gm Oint...g. 1 Ira TP PRN BID PRN Milk Of Magnesia (Magnesium Hydroxide) 2,400 Mg/10 Ml Oral.susp 2,400 Mg PO PRN QHS PRN Mag-Al Plus Xs Suspension (Mag Hydrox/Al Hydrox/Simeth) 30 Ml Oral.susp 15 Ml PO PRN AFTMEALHC PRN Lipitor (Atorvastatin Calcium) 10 Mg Tablet 5 Mg PO HS D3-50 (Cholecalciferol (Vitamin D3)) 50,000 Unit Capsule 50,000 Unit PO WEEKLY Acetaminophen 500 Mg Tablet 500 Mg PO BID Tylenol (Acetaminophen) 325 Mg Tablet 650 Mg PO PRN Q6HRS PRN [place] 5-325 Tablet (Hydrocodone Bit/Acetaminophen) 1 Each Tablet 1 Tab PO PRN Q6HRS PRN [place] 5-325 Tablet (Hydrocodone Bit/Acetaminophen) 1 Each Tablet 1 Tab PO Q4HRS W/A PRN Namenda (Memantine Hcl) 10 Mg Tablet 5 Mg PO HS Losartan-Hctz 100-12.5 Mg Tab (Losartan/Hydrochlorothiazide) 1 Each Tablet 1 Tab PO DAILY Lexapro (Escitalopram Oxalate) 5 Mg Tablet 5 Mg PO DAILY EXELON 4.6mg/24hr (Rivastigmine) 1 Each Patch.td24 1 Patch TP DAILY Depakote Sprinkle (Divalproex Sodium) 125 Mg Cap.sprink 250 Mg PO TID Biofreeze (Menthol) 118 Ml Gel..ml. 1 Ml TP PRN BID PRN Lorazepam 0.5 Mg Tablet 0.5 Mg PO PRN Q4HRS PRN Hydralazine Hcl 25 Mg Tablet 25 Mg PO TID Arthritis Pain (Acetaminophen) 650 Mg Tablet.er 1,300 Mg PO Q8HRS Namenda (Memantine Hcl) 10 Mg Tablet 10 Mg PO DAILY Donepezil Hcl 10 Mg Tablet 10 Mg PO HS Lovastatin 20 Mg Tablet 20 Mg PO HS [place] Hct 80-12.5 Mg Tablet (Telmisartan/Hydrochlorothiazid) 1 Each Tablet 1 Tab PO DAILY Potassium Gluconate 500 Mg Tablet 500 Mg PO DAILY I have reviewed the current psychotropics carefully including drug interactions. Risk benefit ratio favors no change other than as noted in my dictated progress note. 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
--- NOTE | 2017-05-14 04:35 | PN ---
DATE: 05/11/2017 This is a late entry for 05/11/2017 covers elements not covered in my initial note of 05/11/2017. SUBJECTIVE: I met with the patient in the evening of 05/11/2017. The patient has been medically deteriorating and Dr. Stewart suggested hospice care. Her court appointed guardian is approving of this. She remains on IV fluids D5W. REVIEW OF SYSTEMS: Ambulation impaired, in Broda chair. No CV, , pulmonary, eye, ENT system symptoms on review. Reliability poor. MENTAL STATUS EXAM: Oriented to herself. Insight, judgment, recent and remote memory, attention, concentration, fund of knowledge poor, consistent with her diagnosis mentioned in my initial note. IMPRESSION: Major neurocognitive disorder, Alzheimer, vascular with depression, delusion, behavioral disturbance. Rest unchanged from initial note. PLAN: Continue psychotropics mentioned in my initial note including the Seroquel 12.5 mg b.i.d. Adjust as clinically indicated. NEHEMIAS EPSTEIN MD DR: USMAN/rogerio JOB#: [id number] / [id number]
[2017-05-14 06:03] VITALS: BP 147/56
[2017-05-14] MEDS: hydrALAZINE 25 MG TABLET PO SCH ×3 (08:10→19:43)
[2017-05-14] MEDS: VALPROATE ACID 250 MG/5 ML ORAL SOLUTION PO SCH ×3 (08:10→19:36)
[2017-05-14] MEDS: ACETAMINOPHEN 500 MG TABLET PO SCH ×2 (08:10→19:36)
[2017-05-14] MEDS: SERTRALINE 50 MG TABLET. PO SCH (08:10)
[2017-05-14] MEDS: QUEtiapine 25 MG TABLET. PO SCH ×3 (08:15→18:11)
[2017-05-14] MEDS: CHOLECALCIFEROL (VITAMIN D3) 50,000 UNIT CAPSULE PO SCH (08:15)
[2017-05-14] MEDS: POTASSIUM CHLORIDE 20 MEQ/15 ML ORAL LIQUID. PO SCH (08:30)
[2017-05-14 15:52] VITALS: BP 122/59
--- NOTE | 2017-05-14 19:13 | PDOC ---
Exam Note: Tobin Note: Please also refer to the separate dictated note~for this date of service dictated separately.~Patient seen individually. Discussed the patient with Nursing staff reviewed the chart.~Reviewed interim history and current functioning. Reviewed vital signs,~Labs/ Radiology~and current medications noted below. Continue current treatment with the changes noted in the dictated addendum note Assessment: Vital Signs: Vital Signs Date Time Temp Pulse Resp B/P (MAP) Pulse Ox O2 Delivery O2 Flow Rate FiO2 05/14/17 15:52 98.2 64 18 122/59 (80) 96 05/12/17 16:02 Room Air I&O Intake and Output 05/14/17 06:59 Intake Total 0 ml Balance 0 ml Intake Oral 0 ml Current Medications: Meds: Current Medications Acetaminophen (Tylenol) 500 mg BID PO Last administered on 05/14/17 08:10; Start 05/06/17 at 21:00 Acetaminophen (Tylenol) 650 mg PRN Q6HRS PRN PO PAIN / TEMP Last administered on 05/07/17 07:15; Start 05/06/17 at 14:00 Vitamin D (Vitamin D3) 50,000 unit WEEKLY PO ; Start 05/06/17 at 17:00; Stop 05/06/17 at 17:00; Status DC Divalproex Sodium (Depakote Sprinkles) 250 mg TID PO Last administered on 05/07 07:36; Start 05/06/17 at 14:00; Stop 05/07/17 at 13:09; Status DC Donepezil HCl (Aricept) 10 mg HS PO Last administered on 05/12/17 19:18; Start 05/06/17 at 21:00; Stop 05/13/17 at 08:29; Status DC Hydralazine HCl (Apresoline) 25 mg TID PO Last administered on 05/14/17 12:49 ; Start 05/06/17 at 14:00 Acetaminophen/ Hydrocodone Bitart (Lortab 5/325) 1 tab PRN Q6HRS PRN PO PAIN; Start 05/06/17 at 14:00; Status UNV Acetaminophen/ Hydrocodone Bitart (Lortab 5/325) 1 tab Q4HRS W/A PRN PO PAIN Last administered on 05/12/17 17:02; Start 05/06/17 at 14:00 Lorazepam (Ativan) 0.5 mg PRN Q4HRS PRN PO ANXIETY / AGITATION Last administered on 05/13/17 09:00; Start 05/06/17 at 14:00 Memantine (Namenda) 5 mg QHS PO Last administered on 05/12/17 19:19; Start 05/06/17 at 21:00; Stop 05/13/17 at 08:29; Status DC Memantine (Namenda) 10 mg DAILY PO Last administered on 05/13/17 08:04; Start 05/07/17 at 09:00; Stop 05/13/17 at 08:29; Status DC Rivastigmine (Exelon) 1 patch DAILY TD Last administered on 05/13/17 08:06; Start 05/07/17 at 09:00; Stop 05/13/17 at 08:29; Status DC Non-Formulary Medication 1,300 mg Q8HRS PO ; Start 05/06/17 at 14:00; Stop at 15:31; Status DC Citalopram Hydrobromide (CeleXA) 10 mg DAILY PO Last administered on 07:47; Start 05/07/17 at 09:00; Stop 05/08/17 at 18:33; Status DC Hydrochlorothiazide (Microzide) 12.5 mg DAILY PO Last administered on 07:34; Start 05/07/17 at 09:00; Stop 05/07/17 at 17:04; Status DC Atorvastatin Calcium (Lipitor) 5 mg QHS PO Last administered on 05/13/17 19: 47; Start 05/06/17 at 21:00 Multi-Ingredient Ointment (Analgesic [place]) 1 ira PRN BID PRN TP PAIN; Start at 15:00 Potassium Chloride (Klor-Con 8) 8 meq DAILYWBKFT PO Last administered on 08:08; Start 05/07/17 at 08:00; Stop 05/14/17 at 08:15; Status DC Non-Formulary Medication 1 tab DAILY PO ; Start 05/07/17 at 09:00; Status UNV Al Hydroxide/Mg Hydroxide (Mylanta Plus Xs) 15 ml PRN AFTMEALHC PRN PO DYSPEPSIA; Start 05/06/17 at 15:30 Magnesium Hydroxide (Milk Of Magnesia) 2,400 mg PRN QHS PRN PO CONSTIPATION Last administered on 05/13/17 08:18; Start 05/06/17 at 15:30 Losartan Potassium (Cozaar) 100 mg DAILY PO Last administered on 05/07/17 07: 33; Start 05/07/17 at 09:00; Stop 05/07/17 at 17:04; Status DC Vitamin D (Vitamin D3) 50,000 unit WEEKLY PO Last administered on 05/14/17 08 :15; Start 05/07/17 at 09:00; Stop 06/18/17 at 09:01 Olanzapine (ZyPREXA ZYDIS) 2.5 mg PRN Q2HR PRN PO PSYCHOSIS Last administered on 05/12/17 11:41; Start 05/06/17 at 17:45 Valproic Acid (Depakene) 250 mg [id number] PO Last administered on 05/14/17 12:47 ; Start 05/07/17 at 14:00 Sodium Chloride 1,000 ml @ 75 mls/hr [id number] IV Last administered on 09:51; Start 05/07/17 at 17:15; Stop 05/09/17 at 11:41; Status DC Sertraline HCl (Zoloft) 25 mg DAILY PO Last administered on 05/09/17 08:12; Start 05/09/17 at 09:00; Stop 05/11/17 at 08:00; Status DC Sertraline HCl (Zoloft) 50 mg DAILY PO Last administered on 05/14/17 08:10; Start 05/11/17 at 09:00 Sodium Chloride (Normal Saline Flush 3ml) 3 ml QSHIFT PRN IV AFTER MEDS AND BLOOD DRAWS; Start 05/10/17 at 16:00 Quetiapine Fumarate (SEROquel) 12.5 mg [id number] PO Last administered on 15:29; Start 05/10/17 at 18:30; Stop 05/13/17 at 17:38; Status DC Dextrose 1,000 ml @ 125 mls/hr 1X ONCE IV Last administered on 12/27/17at 13: 51; Start 05/11/17 at 13:15; Stop 05/11/17 at 21:14; Status DC Morphine Sulfate (Roxanol Conc) 5 mg PRN Q3HRS PRN SL PAIN; Start 05/13/17 at 13:00 Quetiapine Fumarate (SEROquel) 12.5 mg TID@0900,1300,1700 PO Last administered on 05/14/17 18:11; Start 05/14/17 at 09:00 Potassium Chloride (KCl Oral Soln) 8 meq DAILYWBKFT PO Last administered on 08:30; Start 05/14/17 at 08:30 Active Scripts Active Reported Depakene (Valproate Sodium) 250 Mg/5 Ml Solution 250 Mg PO [id number] Hydralazine Hcl 25 Mg Tablet 25 Mg PO TID Zoloft (Sertraline Hcl) 50 Mg Tablet 50 Mg PO DAILY Seroquel (Quetiapine Fumarate) 25 Mg Tablet 12.5 Mg PO [id number] Klor-Con 8 (Potassium Chloride) 8 Meq Tablet.er 8 Meq PO DAILYWBKFT Zyprexa (Olanzapine) 2.5 Mg Tablet 2.5 Mg PO PRN Q2HR PRN Analgesic [place] (Methyl Salicylate/Menthol) 28 Gm Oint...g. 1 Ira TP PRN BID PRN Milk Of Magnesia (Magnesium Hydroxide) 2,400 Mg/10 Ml Oral.susp 2,400 Mg PO PRN QHS PRN Mag-Al Plus Xs Suspension (Mag Hydrox/Al Hydrox/Simeth) 30 Ml Oral.susp 15 Ml PO PRN AFTMEALHC PRN Lipitor (Atorvastatin Calcium) 10 Mg Tablet 5 Mg PO HS D3-50 (Cholecalciferol (Vitamin D3)) 50,000 Unit Capsule 50,000 Unit PO WEEKLY Acetaminophen 500 Mg Tablet 500 Mg PO BID Tylenol (Acetaminophen) 325 Mg Tablet 650 Mg PO PRN Q6HRS PRN [place] 5-325 Tablet (Hydrocodone Bit/Acetaminophen) 1 Each Tablet 1 Tab PO PRN Q6HRS PRN [place] 5-325 Tablet (Hydrocodone Bit/Acetaminophen) 1 Each Tablet 1 Tab PO Q4HRS W/A PRN Namenda (Memantine Hcl) 10 Mg Tablet 5 Mg PO HS Losartan-Hctz 100-12.5 Mg Tab (Losartan/Hydrochlorothiazide) 1 Each Tablet 1 Tab PO DAILY Lexapro (Escitalopram Oxalate) 5 Mg Tablet 5 Mg PO DAILY EXELON 4.6mg/24hr (Rivastigmine) 1 Each Patch.td24 1 Patch TP DAILY Depakote Sprinkle (Divalproex Sodium) 125 Mg Cap.sprink 250 Mg PO TID Biofreeze (Menthol) 118 Ml Gel..ml. 1 Ml TP PRN BID PRN Lorazepam 0.5 Mg Tablet 0.5 Mg PO PRN Q4HRS PRN Hydralazine Hcl 25 Mg Tablet 25 Mg PO TID Arthritis Pain (Acetaminophen) 650 Mg Tablet.er 1,300 Mg PO Q8HRS Namenda (Memantine Hcl) 10 Mg Tablet 10 Mg PO DAILY Donepezil Hcl 10 Mg Tablet 10 Mg PO HS Lovastatin 20 Mg Tablet 20 Mg PO HS [place] Hct 80-12.5 Mg Tablet (Telmisartan/Hydrochlorothiazid) 1 Each Tablet 1 Tab PO DAILY Potassium Gluconate 500 Mg Tablet 500 Mg PO DAILY I have reviewed the current psychotropics carefully including drug interactions. Risk benefit ratio favors no change other than as noted in my dictated progress note. 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
[2017-05-14] MEDS: ATORVASTATIN CALCIUM 10 MG TABLET. PO SCH (19:35)
[2017-05-15 06:05] VITALS: BP 150/70
[2017-05-15] MEDS: VALPROATE ACID 250 MG/5 ML ORAL SOLUTION PO SCH ×3 (08:26→19:26)
[2017-05-15] MEDS: POTASSIUM CHLORIDE 20 MEQ/15 ML ORAL LIQUID. PO SCH (08:26)
[2017-05-15] MEDS: QUEtiapine 25 MG TABLET. PO SCH ×3 (08:27→17:09)
[2017-05-15] MEDS: ACETAMINOPHEN 500 MG TABLET PO SCH ×2 (08:27→19:24)
[2017-05-15] MEDS: SERTRALINE 50 MG TABLET. PO SCH (08:27)
[2017-05-15] MEDS: hydrALAZINE 25 MG TABLET PO SCH ×3 (08:27→19:26)
--- NOTE | 2017-05-15 09:17 | PN ---
DATE: 05/13/2017 PSYCHIATRIC PROGRESS NOTE This is a late entry 05/13/2017, covers elements not covered in my initial note. SUBJECTIVE: I met with the patient the evening of 05/13/2017. She is somewhat sedated at times, but whenever she is awake she has been crying with mood lability. Ativan seems to help a little. REVIEW OF SYSTEMS: Ambulation impaired, in Broda chair. No CV, , pulmonary, eye, ENT system symptoms on review. Reliability poor. MENTAL STATUS EXAM: Oriented to herself. Insight, judgment, recent and remote memory, attention, concentration, fund of knowledge poor, consistent with her diagnoses mentioned in my initial note. IMPRESSION: Major neurocognitive disorder, Alzheimer, vascular with depression, delusion, behavioral disturbance. Rest unchanged. PLAN: Continue current psychotropics, Seroquel is 12.5 mg twice a day. We will increase it to 12.5 mg 3 times a day. NEHEMIAS EPSTEIN MD DR: USMAN/rogerio JOB#: [id number] / [id number]
[2017-05-15 15:55] VITALS: BP 151/57
[2017-05-15] MEDS: HYDROcodone/APAP 5/325MG 1 TAB TABLET PO PRN (19:24)
[2017-05-15] MEDS: ATORVASTATIN CALCIUM 10 MG TABLET. PO SCH (19:25)
--- NOTE | 2017-05-15 20:19 | PDOC ---
Exam Note: Tobin Note: Please also refer to the separate dictated note~for this date of service dictated separately.~Patient seen individually. Discussed the patient with Nursing staff reviewed the chart.~Reviewed interim history and current functioning. Reviewed vital signs,~Labs/ Radiology~and current medications noted below. Continue current treatment with the changes noted in the dictated addendum note Assessment: Vital Signs: Vital Signs Date Time Temp Pulse Resp B/P (MAP) Pulse Ox O2 Delivery O2 Flow Rate FiO2 05/15/17 19:26 75 151/57 05/15/17 19:24 18 98 Room Air 05/15/17 15:55 98.8 I&O Intake and Output 05/15/17 07:00 Intake Total 480 ml Balance 480 ml Intake Oral 480 ml Current Medications: Meds: Current Medications Acetaminophen (Tylenol) 500 mg BID PO Last administered on 05/15/17 19:24; Start 05/06/17 at 21:00 Acetaminophen (Tylenol) 650 mg PRN Q6HRS PRN PO PAIN / TEMP Last administered on 05/07/17 07:15; Start 05/06/17 at 14:00 Vitamin D (Vitamin D3) 50,000 unit WEEKLY PO ; Start 05/06/17 at 17:00; Stop 05/06/17 at 17:00; Status DC Divalproex Sodium (Depakote Sprinkles) 250 mg TID PO Last administered on 05/07 07:36; Start 05/06/17 at 14:00; Stop 05/07/17 at 13:09; Status DC Donepezil HCl (Aricept) 10 mg HS PO Last administered on 05/12/17 19:18; Start 05/06/17 at 21:00; Stop 05/13/17 at 08:29; Status DC Hydralazine HCl (Apresoline) 25 mg TID PO Last administered on 05/15/17 19:26 ; Start 05/06/17 at 14:00 Acetaminophen/ Hydrocodone Bitart (Lortab 5/325) 1 tab PRN Q6HRS PRN PO PAIN; Start 05/06/17 at 14:00; Status UNV Acetaminophen/ Hydrocodone Bitart (Lortab 5/325) 1 tab Q4HRS W/A PRN PO PAIN Last administered on 05/15/17 19:24; Start 05/06/17 at 14:00 Lorazepam (Ativan) 0.5 mg PRN Q4HRS PRN PO ANXIETY / AGITATION Last administered on 05/13/17 09:00; Start 05/06/17 at 14:00 Memantine (Namenda) 5 mg QHS PO Last administered on 05/12/17 19:19; Start 05/06/17 at 21:00; Stop 05/13/17 at 08:29; Status DC Memantine (Namenda) 10 mg DAILY PO Last administered on 05/13/17 08:04; Start 05/07/17 at 09:00; Stop 05/13/17 at 08:29; Status DC Rivastigmine (Exelon) 1 patch DAILY TD Last administered on 05/13/17 08:06; Start 05/07/17 at 09:00; Stop 05/13/17 at 08:29; Status DC Non-Formulary Medication 1,300 mg Q8HRS PO ; Start 05/06/17 at 14:00; Stop at 15:31; Status DC Citalopram Hydrobromide (CeleXA) 10 mg DAILY PO Last administered on 07:47; Start 05/07/17 at 09:00; Stop 05/08/17 at 18:33; Status DC Hydrochlorothiazide (Microzide) 12.5 mg DAILY PO Last administered on 07:34; Start 05/07/17 at 09:00; Stop 05/07/17 at 17:04; Status DC Atorvastatin Calcium (Lipitor) 5 mg QHS PO Last administered on 05/15/17 19: 25; Start 05/06/17 at 21:00 Multi-Ingredient Ointment (Analgesic [place]) 1 ira PRN BID PRN TP PAIN; Start at 15:00 Potassium Chloride (Klor-Con 8) 8 meq DAILYWBKFT PO Last administered on 08:08; Start 05/07/17 at 08:00; Stop 05/14/17 at 08:15; Status DC Non-Formulary Medication 1 tab DAILY PO ; Start 05/07/17 at 09:00; Status UNV Al Hydroxide/Mg Hydroxide (Mylanta Plus Xs) 15 ml PRN AFTMEALHC PRN PO DYSPEPSIA; Start 05/06/17 at 15:30 Magnesium Hydroxide (Milk Of Magnesia) 2,400 mg PRN QHS PRN PO CONSTIPATION Last administered on 05/13/17 08:18; Start 05/06/17 at 15:30 Losartan Potassium (Cozaar) 100 mg DAILY PO Last administered on 05/07/17 07: 33; Start 05/07/17 at 09:00; Stop 05/07/17 at 17:04; Status DC Vitamin D (Vitamin D3) 50,000 unit WEEKLY PO Last administered on 05/14/17 08 :15; Start 05/07/17 at 09:00; Stop 06/18/17 at 09:01 Olanzapine (ZyPREXA ZYDIS) 2.5 mg PRN Q2HR PRN PO PSYCHOSIS Last administered on 05/12/17 11:41; Start 05/06/17 at 17:45 Valproic Acid (Depakene) 250 mg [id number] PO Last administered on 05/15/17 19:26 ; Start 05/07/17 at 14:00 Sodium Chloride 1,000 ml @ 75 mls/hr [id number] IV Last administered on 09:51; Start 05/07/17 at 17:15; Stop 05/09/17 at 11:41; Status DC Sertraline HCl (Zoloft) 25 mg DAILY PO Last administered on 05/09/17 08:12; Start 05/09/17 at 09:00; Stop 05/11/17 at 08:00; Status DC Sertraline HCl (Zoloft) 50 mg DAILY PO Last administered on 05/15/17 08:27; Start 05/11/17 at 09:00 Sodium Chloride (Normal Saline Flush 3ml) 3 ml QSHIFT PRN IV AFTER MEDS AND BLOOD DRAWS; Start 05/10/17 at 16:00 Quetiapine Fumarate (SEROquel) 12.5 mg [id number] PO Last administered on 15:29; Start 05/10/17 at 18:30; Stop 05/13/17 at 17:38; Status DC Dextrose 1,000 ml @ 125 mls/hr 1X ONCE IV Last administered on 05/11/17 13: 51; Start 05/11/17 at 13:15; Stop 05/11/17 at 21:14; Status DC Morphine Sulfate (Roxanol Conc) 5 mg PRN Q3HRS PRN SL PAIN; Start 05/13/17 at 13:00 Quetiapine Fumarate (SEROquel) 12.5 mg TID@0900,1300,1700 PO Last administered on 05/15/17 17:09; Start 05/14/17 at 09:00 Potassium Chloride (KCl Oral Soln) 8 meq DAILYWBKFT PO Last administered on 08:26; Start 05/14/17 at 08:30 Active Scripts Active Reported Depakene (Valproate Sodium) 250 Mg/5 Ml Solution 250 Mg PO [id number] Hydralazine Hcl 25 Mg Tablet 25 Mg PO TID Zoloft (Sertraline Hcl) 50 Mg Tablet 50 Mg PO DAILY Seroquel (Quetiapine Fumarate) 25 Mg Tablet 12.5 Mg PO [id number] Klor-Con 8 (Potassium Chloride) 8 Meq Tablet.er 8 Meq PO [id number] Zyprexa (Olanzapine) 2.5 Mg Tablet 2.5 Mg PO PRN Q2HR PRN Analgesic [place] (Methyl Salicylate/Menthol) 28 Gm Oint...g. 1 Ira TP PRN BID PRN Milk Of Magnesia (Magnesium Hydroxide) 2,400 Mg/10 Ml Oral.susp 2,400 Mg PO PRN QHS PRN Mag-Al Plus Xs Suspension (Mag Hydrox/Al Hydrox/Simeth) 30 Ml Oral.susp 15 Ml PO PRN AFTMEALHC PRN Lipitor (Atorvastatin Calcium) 10 Mg Tablet 5 Mg PO HS D3-50 (Cholecalciferol (Vitamin D3)) 50,000 Unit Capsule 50,000 Unit PO WEEKLY Acetaminophen 500 Mg Tablet 500 Mg PO BID Tylenol (Acetaminophen) 325 Mg Tablet 650 Mg PO PRN Q6HRS PRN [place] 5-325 Tablet (Hydrocodone Bit/Acetaminophen) 1 Each Tablet 1 Tab PO PRN Q6HRS PRN [place] 5-325 Tablet (Hydrocodone Bit/Acetaminophen) 1 Each Tablet 1 Tab PO Q4HRS W/A PRN Namenda (Memantine Hcl) 10 Mg Tablet 5 Mg PO HS Losartan-Hctz 100-12.5 Mg Tab (Losartan/Hydrochlorothiazide) 1 Each Tablet 1 Tab PO DAILY Lexapro (Escitalopram Oxalate) 5 Mg Tablet 5 Mg PO DAILY EXELON 4.6mg/24hr (Rivastigmine) 1 Each Patch.td24 1 Patch TP DAILY Depakote Sprinkle (Divalproex Sodium) 125 Mg Cap.sprink 250 Mg PO TID Biofreeze (Menthol) 118 Ml Gel..ml. 1 Ml TP PRN BID PRN Lorazepam 0.5 Mg Tablet 0.5 Mg PO PRN Q4HRS PRN Hydralazine Hcl 25 Mg Tablet 25 Mg PO TID Arthritis Pain (Acetaminophen) 650 Mg Tablet.er 1,300 Mg PO Q8HRS Namenda (Memantine Hcl) 10 Mg Tablet 10 Mg PO DAILY Donepezil Hcl 10 Mg Tablet 10 Mg PO HS Lovastatin 20 Mg Tablet 20 Mg PO HS [place] Hct 80-12.5 Mg Tablet (Telmisartan/Hydrochlorothiazid) 1 Each Tablet 1 Tab PO DAILY Potassium Gluconate 500 Mg Tablet 500 Mg PO DAILY I have reviewed the current psychotropics carefully including drug interactions. Risk benefit ratio favors no change other than as noted in my dictated progress note. 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
[2017-05-16 06:08] VITALS: BP 126/60
[2017-05-16 06:50] LABS: BASO # 0.1 x10^3/uL (0.0-0.2); BASO % 1 % (0-3); EOS # 0.2 x10^3/uL (0.0-0.7); EOS % 2 % (0-3); HEMATOCRIT 32.7 % (36.0-47.0); HEMOGLOBIN 11.4 g/dL (12.0-15.5); LYMPH # 1.3 x10^3/uL (1.0-4.8); LYMPH % 14 % (24-48); MEAN CORPUSCULAR HEMOGLOBIN 32 pg (25-35); MEAN CORPUSCULAR HGB CONC 35 g/dL (31-37); MEAN CORPUSCULAR VOLUME 92 fL (79-100); MONO # 1.2 x10^3/uL (0.0-1.1); MONO % 13 % (0-9); NEUT # 6.2 x10^3uL (1.8-7.7); NEUT % 70 % (31-73); PLATELET COUNT 222 x10^3/uL (140-400); RED BLOOD COUNT 3.54 x10^6/uL (3.50-5.40); RED CELL DISTRIBUTION WIDTH 13.6 % (11.5-14.5); WHITE BLOOD COUNT 8.9 x10^3/uL (4.0-11.0)
[2017-05-16 07:29] LABS: ALBUMIN/GLOBULIN RATIO 0.8 (1.0-1.7); CALCIUM 9.4 mg/dL (8.5-10.1); CREATININE 1.3 mg/dL (0.6-1.0); GFR 39.7; MAGNESIUM 2.5 mg/dL (1.8-2.4); TOTAL BILIRUBIN 0.4 mg/dL (0.2-1.0); TOTAL PROTEIN 6.9 g/dL (6.4-8.2)
--- NOTE | 2017-05-16 08:50 | PN ---
DATE: 05/14/2017 PSYCHIATRIC PROGRESS NOTE This is a late entry 05/14/2017, covers elements not covered in my initial note 05/14/2017. SUBJECTIVE: I met with the patient the evening of 05/14/2017. The patient was somewhat tired in the morning. Oral intake is worse. She has been supplemented by Boost, takes her medications and Boost as well. When she is awake, she still labile in mood with intermittent crying, wanting to go to her room . REVIEW OF SYSTEMS: Ambulation impaired, in Broda chair. No CV, , pulmonary, eye, ENT system symptoms on review. Reliability poor, not very verbal, confused. MENTAL STATUS EXAM: Oriented to herself. Insight, judgment, recent and remote memory, attention, concentration, fund of knowledge poor, consistent with her diagnoses mentioned in my initial note. IMPRESSION: Major neurocognitive disorder, Alzheimer, vascular with depression, delusion, behavioral disturbance. Rest unchanged. PLAN: Continue current psychotropics, carefully review drug interactions given her overall medical condition and age, no further change indicated just yet. NEHEMIAS EPSTEIN MD DR: USMAN/rogerio JOB#: [id number] / [id number]
[2017-05-16] MEDS: MORPHINE SULFATE 20 MG/ML CONC SOLUTION. SL PRN ×2 (09:39→15:28)
[2017-05-16] MEDS: POTASSIUM CHLORIDE 20 MEQ/15 ML ORAL LIQUID. PO SCH (10:01)
[2017-05-16] MEDS: VALPROATE ACID 250 MG/5 ML ORAL SOLUTION PO SCH ×3 (10:03→19:49)
[2017-05-16] MEDS: QUEtiapine 25 MG TABLET. PO SCH ×3 (10:03→17:11)
[2017-05-16] MEDS: ACETAMINOPHEN 500 MG TABLET PO SCH ×2 (10:03→19:49)
[2017-05-16] MEDS: SERTRALINE 50 MG TABLET. PO SCH (10:03)
[2017-05-16] MEDS: hydrALAZINE 25 MG TABLET PO SCH ×3 (10:18→19:48)
[2017-05-16 14:19] VITALS: BP 184/76
[2017-05-16 16:02] VITALS: BP 147/54
[2017-05-16] MEDS: ATORVASTATIN CALCIUM 10 MG TABLET. PO SCH (19:49)
--- NOTE | 2017-05-16 19:58 | PDOC ---
Exam Note: Tobin Note: Please also refer to the separate dictated note~for this date of service dictated separately.~Patient seen individually. Discussed the patient with Nursing staff reviewed the chart.~Reviewed interim history and current functioning. Reviewed vital signs,~Labs/ Radiology~and current medications noted below. Continue current treatment with the changes noted in the dictated addendum note Assessment: Vital Signs: Vital Signs Date Time Temp Pulse Resp B/P (MAP) Pulse Ox O2 Delivery O2 Flow Rate FiO2 05/16/17 19:48 73 147/54 05/16/17 16:31 20 05/16/17 16:02 98.2 98 05/16/17 06:08 Room Air I&O Intake and Output 05/16/17 07:00 Intake Total 660 ml Balance 660 ml Intake Oral 660 ml # Bowel Movements 1 Labs: Laboratory Tests Test 05/16/17 06:31 White Blood Count 8.9 x10^3/uL (4.0-11.0) Red Blood Count 3.54 x10^6/uL (3.50-5.40) Hemoglobin 11.4 g/dL (12.0-15.5) L Hematocrit 32.7 % (36.0-47.0) L Mean Corpuscular Volume 92 fL (79-100) Mean Corpuscular Hemoglobin 32 pg (25-35) Mean Corpuscular Hemoglobin Concent 35 g/dL (31-37) Red Cell Distribution Width 13.6 % (11.5-14.5) Platelet Count 222 x10^3/uL (140-400) Neutrophils (%) (Auto) 70 % (31-73) Lymphocytes (%) (Auto) 14 % (24-48) L Monocytes (%) (Auto) 13 % (0-9) H Eosinophils (%) (Auto) 2 % (0-3) Basophils (%) (Auto) 1 % (0-3) Neutrophils # (Auto) 6.2 x10^3uL (1.8-7.7) Lymphocytes # (Auto) 1.3 x10^3/uL (1.0-4.8) Monocytes # (Auto) 1.2 x10^3/uL (0.0-1.1) H Eosinophils # (Auto) 0.2 x10^3/uL (0.0-0.7) Basophils # (Auto) 0.1 x10^3/uL (0.0-0.2) Sodium Level 149 mmol/L (136-145) H Potassium Level 4.0 mmol/L (3.5-5.1) Chloride Level 111 mmol/L (98-107) H Carbon Dioxide Level 29 mmol/L (21-32) Anion Gap 9 (6-14) Blood Urea Nitrogen 38 mg/dL (7-20) H Creatinine 1.3 mg/dL (0.6-1.0) H Estimated GFR (Cockcroft-Gault) 39.7 BUN/Creatinine Ratio 29 (6-20) H Glucose Level 105 mg/dL (70-99) H Calcium Level 9.4 mg/dL (8.5-10.1) Magnesium Level 2.5 mg/dL (1.8-2.4) H Total Bilirubin 0.4 mg/dL (0.2-1.0) Aspartate Amino Transferase (AST) 22 U/L (15-37) Alanine Aminotransferase (ALT) 31 U/L (14-59) Alkaline Phosphatase 80 U/L (46-116) Total Protein 6.9 g/dL (6.4-8.2) Albumin 3.0 g/dL (3.4-5.0) L Albumin/Globulin Ratio 0.8 (1.0-1.7) L Current Medications: Meds: Current Medications Acetaminophen (Tylenol) 500 mg BID PO Last administered on 05/16/17at 19:49; Start 05/06/17 at 21:00 Acetaminophen (Tylenol) 650 mg PRN Q6HRS PRN PO PAIN / TEMP Last administered on 05/07/17 07:15; Start 05/06/17 at 14:00 Vitamin D (Vitamin D3) 50,000 unit WEEKLY PO ; Start 05/06/17 at 17:00; Stop 05/06/17 at 17:00; Status DC Divalproex Sodium (Depakote Sprinkles) 250 mg TID PO Last administered on 05/07 07:36; Start 05/06/17 at 14:00; Stop 05/07/17 at 13:09; Status DC Donepezil HCl (Aricept) 10 mg HS PO Last administered on 05/12/17 19:18; Start 05/06/17 at 21:00; Stop 05/13/17 at 08:29; Status DC Hydralazine HCl (Apresoline) 25 mg TID PO Last administered on 05/16/17 19:48; Start 05/06/17 at 14:00 Acetaminophen/ Hydrocodone Bitart (Lortab 5/325) 1 tab PRN Q6HRS PRN PO PAIN; Start 05/06/17 at 14:00; Status UNV Acetaminophen/ Hydrocodone Bitart (Lortab 5/325) 1 tab Q4HRS W/A PRN PO PAIN Last administered on 05/15/17 19:24; Start 05/06/17 at 14:00 Lorazepam (Ativan) 0.5 mg PRN Q4HRS PRN PO ANXIETY / AGITATION Last administered on 05/13/17 09:00; Start 05/06/17 at 14:00 Memantine (Namenda) 5 mg QHS PO Last administered on 05/12/17 19:19; Start 05/06/17 at 21:00; Stop 05/13/17 at 08:29; Status DC Memantine (Namenda) 10 mg DAILY PO Last administered on 05/13/17 08:04; Start 05/07/17 at 09:00; Stop 05/13/17 at 08:29; Status DC Rivastigmine (Exelon) 1 patch DAILY TD Last administered on 05/13/17 08:06; Start 05/07/17 at 09:00; Stop 05/13/17 at 08:29; Status DC Non-Formulary Medication 1,300 mg Q8HRS PO ; Start 05/06/17 at 14:00; Stop at 15:31; Status DC Citalopram Hydrobromide (CeleXA) 10 mg DAILY PO Last administered on 07:47; Start 05/07/17 at 09:00; Stop 05/08/17 at 18:33; Status DC Hydrochlorothiazide (Microzide) 12.5 mg DAILY PO Last administered on 07:34; Start 05/07/17 at 09:00; Stop 05/07/17 at 17:04; Status DC Atorvastatin Calcium (Lipitor) 5 mg QHS PO Last administered on 05/16/17 19:49 ; Start 05/06/17 at 21:00 Multi-Ingredient Ointment (Analgesic [place]) 1 ira PRN BID PRN TP PAIN; Start at 15:00 Potassium Chloride (Klor-Con 8) 8 meq DAILYWBKFT PO Last administered on 08:08; Start 05/07/17 at 08:00; Stop 05/14/17 at 08:15; Status DC Non-Formulary Medication 1 tab DAILY PO ; Start 05/07/17 at 09:00; Status UNV Al Hydroxide/Mg Hydroxide (Mylanta Plus Xs) 15 ml PRN AFTMEALHC PRN PO DYSPEPSIA; Start 05/06/17 at 15:30 Magnesium Hydroxide (Milk Of Magnesia) 2,400 mg PRN QHS PRN PO CONSTIPATION Last administered on 05/13/17 08:18; Start 05/06/17 at 15:30 Losartan Potassium (Cozaar) 100 mg DAILY PO Last administered on 05/07/17 07: 33; Start 05/07/17 at 09:00; Stop 05/07/17 at 17:04; Status DC Vitamin D (Vitamin D3) 50,000 unit WEEKLY PO Last administered on 05/14/17 08 :15; Start 05/07/17 at 09:00; Stop 06/18/17 at 09:01 Olanzapine (ZyPREXA ZYDIS) 2.5 mg PRN Q2HR PRN PO PSYCHOSIS Last administered on 05/12/17 11:41; Start 05/06/17 at 17:45 Valproic Acid (Depakene) 250 mg [id number] PO Last administered on 05/16/17at 19:49; Start 05/07/17 at 14:00 Sodium Chloride 1,000 ml @ 75 mls/hr [id number] IV Last administered on 09:51; Start 05/07/17 at 17:15; Stop 05/09/17 at 11:41; Status DC Sertraline HCl (Zoloft) 25 mg DAILY PO Last administered on 05/09/17 08:12; Start 05/09/17 at 09:00; Stop 05/11/17 at 08:00; Status DC Sertraline HCl (Zoloft) 50 mg DAILY PO Last administered on 05/16/17 10:03; Start 05/11/17 at 09:00 Sodium Chloride (Normal Saline Flush 3ml) 3 ml QSHIFT PRN IV AFTER MEDS AND BLOOD DRAWS; Start 05/10/17 at 16:00 Quetiapine Fumarate (SEROquel) 12.5 mg [id number] PO Last administered on 15:29; Start 05/10/17 at 18:30; Stop 05/13/17 at 17:38; Status DC Dextrose 1,000 ml @ 125 mls/hr 1X ONCE IV Last administered on 05/11/17 13: 51; Start 05/11/17 at 13:15; Stop 05/11/17 at 21:14; Status DC Morphine Sulfate (Roxanol Conc) 5 mg PRN Q3HRS PRN SL PAIN Last administered on 05/16/17 15:28; Start 05/13/17 at 13:00 Quetiapine Fumarate (SEROquel) 12.5 mg TID@0900,1300,1700 PO Last administered on 05/16/17 14:20; Start 05/14/17 at 09:00 Potassium Chloride (KCl Oral Soln) 8 meq DAILYWBKFT PO Last administered on 05/16 10:01; Start 05/14/17 at 08:30 Active Scripts Active Reported Depakene (Valproate Sodium) 250 Mg/5 Ml Solution 250 Mg PO [id number] Hydralazine Hcl 25 Mg Tablet 25 Mg PO TID Zoloft (Sertraline Hcl) 50 Mg Tablet 50 Mg PO DAILY Seroquel (Quetiapine Fumarate) 25 Mg Tablet 12.5 Mg PO [id number] Klor-Con 8 (Potassium Chloride) 8 Meq Tablet.er 8 Meq PO DAILYWBKFT Zyprexa (Olanzapine) 2.5 Mg Tablet 2.5 Mg PO PRN Q2HR PRN Analgesic [place] (Methyl Salicylate/Menthol) 28 Gm Oint...g. 1 Ira TP PRN BID PRN Milk Of Magnesia (Magnesium Hydroxide) 2,400 Mg/10 Ml Oral.susp 2,400 Mg PO PRN QHS PRN Mag-Al Plus Xs Suspension (Mag Hydrox/Al Hydrox/Simeth) 30 Ml Oral.susp 15 Ml PO PRN AFTMEALHC PRN Lipitor (Atorvastatin Calcium) 10 Mg Tablet 5 Mg PO HS D3-50 (Cholecalciferol (Vitamin D3)) 50,000 Unit Capsule 50,000 Unit PO WEEKLY Acetaminophen 500 Mg Tablet 500 Mg PO BID Tylenol (Acetaminophen) 325 Mg Tablet 650 Mg PO PRN Q6HRS PRN [place] 5-325 Tablet (Hydrocodone Bit/Acetaminophen) 1 Each Tablet 1 Tab PO PRN Q6HRS PRN [place] 5-325 Tablet (Hydrocodone Bit/Acetaminophen) 1 Each Tablet 1 Tab PO Q4HRS W/A PRN Namenda (Memantine Hcl) 10 Mg Tablet 5 Mg PO HS Losartan-Hctz 100-12.5 Mg Tab (Losartan/Hydrochlorothiazide) 1 Each Tablet 1 Tab PO DAILY Lexapro (Escitalopram Oxalate) 5 Mg Tablet 5 Mg PO DAILY EXELON 4.6mg/24hr (Rivastigmine) 1 Each Patch.td24 1 Patch TP DAILY Depakote Sprinkle (Divalproex Sodium) 125 Mg Cap.sprink 250 Mg PO TID Biofreeze (Menthol) 118 Ml Gel..ml. 1 Ml TP PRN BID PRN Lorazepam 0.5 Mg Tablet 0.5 Mg PO PRN Q4HRS PRN Hydralazine Hcl 25 Mg Tablet 25 Mg PO TID Arthritis Pain (Acetaminophen) 650 Mg Tablet.er 1,300 Mg PO Q8HRS Namenda (Memantine Hcl) 10 Mg Tablet 10 Mg PO DAILY Donepezil Hcl 10 Mg Tablet 10 Mg PO HS Lovastatin 20 Mg Tablet 20 Mg PO HS [place] Hct 80-12.5 Mg Tablet (Telmisartan/Hydrochlorothiazid) 1 Each Tablet 1 Tab PO DAILY Potassium Gluconate 500 Mg Tablet 500 Mg PO DAILY I have reviewed the current psychotropics carefully including drug interactions. Risk benefit ratio favors no change other than as noted in my dictated progress note. Diagnosis: Problems: (1) Anxiety disorder (2) Major neurocognitive disorder (3) Mixed Alzheimer's and vascular dementia with behavior disturbances (4) Dilutional hyponatremia (5) Behavior concern (6) Impulse control disorder NEHEMIAS EPSTEIN MD May 16, 2017 19:58
[2017-05-17] MEDS: MORPHINE SULFATE 20 MG/ML CONC SOLUTION. SL PRN ×2 (01:19→12:22)
[2017-05-17 05:59] VITALS: BP 119/80
[2017-05-17 08:04] LABS: BASO # 0.1 x10^3/uL (0.0-0.2); BASO % 1 % (0-3); EOS # 0.2 x10^3/uL (0.0-0.7); EOS % 2 % (0-3); HEMATOCRIT 34.5 % (36.0-47.0); HEMOGLOBIN 11.9 g/dL (12.0-15.5); LYMPH # 1.1 x10^3/uL (1.0-4.8); LYMPH % 11 % (24-48); MEAN CORPUSCULAR HEMOGLOBIN 32 pg (25-35); MEAN CORPUSCULAR HGB CONC 35 g/dL (31-37); MEAN CORPUSCULAR VOLUME 92 fL (79-100); MONO # 1.4 x10^3/uL (0.0-1.1); MONO % 14 % (0-9); NEUT # 7.4 x10^3uL (1.8-7.7); NEUT % 73 % (31-73); PLATELET COUNT 248 x10^3/uL (140-400); RED BLOOD COUNT 3.76 x10^6/uL (3.50-5.40); RED CELL DISTRIBUTION WIDTH 14.1 % (11.5-14.5); WHITE BLOOD COUNT 10.2 x10^3/uL (4.0-11.0)
[2017-05-17 08:13] LABS: ALBUMIN 3.3 g/dL (3.4-5.0); ALBUMIN/GLOBULIN RATIO 0.8 (1.0-1.7); CALCIUM 9.7 mg/dL (8.5-10.1); CREATININE 1.2 mg/dL (0.6-1.0); GFR 43.6; MAGNESIUM 2.4 mg/dL (1.8-2.4); TOTAL BILIRUBIN 0.5 mg/dL (0.2-1.0); TOTAL PROTEIN 7.6 g/dL (6.4-8.2)
[2017-05-17] MEDS: VALPROATE ACID 250 MG/5 ML ORAL SOLUTION PO SCH ×3 (09:53→19:28)
[2017-05-17] MEDS: POTASSIUM CHLORIDE 20 MEQ/15 ML ORAL LIQUID. PO SCH (09:53)
[2017-05-17] MEDS: QUEtiapine 25 MG TABLET. PO SCH ×3 (09:54→17:10)
[2017-05-17] MEDS: SERTRALINE 50 MG TABLET. PO SCH (09:54)
[2017-05-17] MEDS: hydrALAZINE 25 MG TABLET PO SCH ×3 (09:55→19:28)
[2017-05-17] MEDS: ACETAMINOPHEN 500 MG TABLET PO SCH ×2 (09:55→19:28)
--- NOTE | 2017-05-17 10:07 | PN ---
DATE: 05/12/2017 This late entry 05/12/2017 covers elements not covered in my initial note 05/12/2017. The patient was staffed at treatment team meeting with the entire team morning of 05/12/2017, seen individually evening of 05/12/2017. Reviewed the patient's history, diagnosis, progress. REVIEW OF SYSTEMS: Ambulation impaired, in Broda chair. No CV, , pulmonary, eye, ENT system symptoms on review. Reliability oor. MENTAL STATUS EXAM: Oriented to herself. Insight, judgment, recent and remote memory, attention, concentration, fund of knowledge poor, consistent with her diagnosis. She gets intermittently aggressive, kicking out at staff, especially after breakfast. Received Ativan at 8:19 a.m., Zyprexa at 11:45 a.m., Lortab for pain seemed to help her agitation as well. Insight, judgment, recent and remote memory, attention, concentration, fund of knowledge poor, consistent with her diagnosis. IMPRESSION: Unchanged from initial note. Major neurocognitive disorder, Alzheimer, vascular with depression, delusion, behavioral disturbance. Rest unchanged. PLAN: Continue psychotropics mentioned in my initial note. MAN Ana EPSTEIN MD DR: USMAN/rogerio JOB#: [id number] / [id number]
[2017-05-17 14:42] VITALS: BP 139/64
[2017-05-17 15:56] VITALS: BP 117/56
[2017-05-17 19:26] VITALS: BP 140/73
[2017-05-17] MEDS: ATORVASTATIN CALCIUM 10 MG TABLET. PO SCH (19:28)
--- NOTE | 2017-05-17 20:09 | PDOC ---
Exam Note: Tobin Note: Please also refer to the separate dictated note~for this date of service dictated separately.~Patient seen individually. Discussed the patient with Nursing staff reviewed the chart.~Reviewed interim history and current functioning. Reviewed vital signs,~Labs/ Radiology~and current medications noted below. Continue current treatment with the changes noted in the dictated addendum note Assessment: Vital Signs: Vital Signs Date Time Temp Pulse Resp B/P (MAP) Pulse Ox O2 Delivery O2 Flow Rate FiO2 05/17/17 19:28 71 140/73 05/17/17 19:26 20 97 Room Air 05/17/17 15:56 97.9 I&O Intake and Output 05/17/17 07:00 Intake Total 0 ml Balance 0 ml Intake Oral 0 ml Labs: Laboratory Tests Test 05/17/17 07:49 White Blood Count 10.2 x10^3/uL (4.0-11.0) Red Blood Count 3.76 x10^6/uL (3.50-5.40) Hemoglobin 11.9 g/dL (12.0-15.5) L Hematocrit 34.5 % (36.0-47.0) L Mean Corpuscular Volume 92 fL (79-100) Mean Corpuscular Hemoglobin 32 pg (25-35) Mean Corpuscular Hemoglobin Concent 35 g/dL (31-37) Red Cell Distribution Width 14.1 % (11.5-14.5) Platelet Count 248 x10^3/uL (140-400) Neutrophils (%) (Auto) 73 % (31-73) Lymphocytes (%) (Auto) 11 % (24-48) L Monocytes (%) (Auto) 14 % (0-9) H Eosinophils (%) (Auto) 2 % (0-3) Basophils (%) (Auto) 1 % (0-3) Neutrophils # (Auto) 7.4 x10^3uL (1.8-7.7) Lymphocytes # (Auto) 1.1 x10^3/uL (1.0-4.8) Monocytes # (Auto) 1.4 x10^3/uL (0.0-1.1) H Eosinophils # (Auto) 0.2 x10^3/uL (0.0-0.7) Basophils # (Auto) 0.1 x10^3/uL (0.0-0.2) Sodium Level 148 mmol/L (136-145) H Potassium Level 4.0 mmol/L (3.5-5.1) Chloride Level 110 mmol/L (98-107) H Carbon Dioxide Level 26 mmol/L (21-32) Anion Gap 12 (6-14) Blood Urea Nitrogen 33 mg/dL (7-20) H Creatinine 1.2 mg/dL (0.6-1.0) H Estimated GFR (Cockcroft-Gault) 43.6 BUN/Creatinine Ratio 28 (6-20) H Glucose Level 116 mg/dL (70-99) H Calcium Level 9.7 mg/dL (8.5-10.1) Magnesium Level 2.4 mg/dL (1.8-2.4) Total Bilirubin 0.5 mg/dL (0.2-1.0) Aspartate Amino Transferase (AST) 21 U/L (15-37) Alanine Aminotransferase (ALT) 30 U/L (14-59) Alkaline Phosphatase 87 U/L (46-116) Total Protein 7.6 g/dL (6.4-8.2) Albumin 3.3 g/dL (3.4-5.0) L Albumin/Globulin Ratio 0.8 (1.0-1.7) L Current Medications: Meds: Current Medications Acetaminophen (Tylenol) 500 mg BID PO Last administered on 05/17/17at 19:28; Start 05/06/17 at 21:00 Acetaminophen (Tylenol) 650 mg PRN Q6HRS PRN PO PAIN / TEMP Last administered on 05/07/17 07:15; Start 05/06/17 at 14:00 Vitamin D (Vitamin D3) 50,000 unit WEEKLY PO ; Start 05/06/17 at 17:00; Stop 05/06/17 at 17:00; Status DC Divalproex Sodium (Depakote Sprinkles) 250 mg TID PO Last administered on 05/07 07:36; Start 05/06/17 at 14:00; Stop 05/07/17 at 13:09; Status DC Donepezil HCl (Aricept) 10 mg HS PO Last administered on 05/12/17 19:18; Start 05/06/17 at 21:00; Stop 05/13/17 at 08:29; Status DC Hydralazine HCl (Apresoline) 25 mg TID PO Last administered on 05/17/17 19:28; Start 05/06/17 at 14:00 Acetaminophen/ Hydrocodone Bitart (Lortab 5/325) 1 tab PRN Q6HRS PRN PO PAIN; Start 05/06/17 at 14:00; Status UNV Acetaminophen/ Hydrocodone Bitart (Lortab 5/325) 1 tab Q4HRS W/A PRN PO PAIN Last administered on 05/15/17 19:24; Start 05/06/17 at 14:00 Lorazepam (Ativan) 0.5 mg PRN Q4HRS PRN PO ANXIETY / AGITATION Last administered on 05/13/17 09:00; Start 05/06/17 at 14:00 Memantine (Namenda) 5 mg QHS PO Last administered on 05/12/17 19:19; Start 05/06/17 at 21:00; Stop 05/13/17 at 08:29; Status DC Memantine (Namenda) 10 mg DAILY PO Last administered on 05/13/17 08:04; Start 05/07/17 at 09:00; Stop 05/13/17 at 08:29; Status DC Rivastigmine (Exelon) 1 patch DAILY TD Last administered on 05/13/17 08:06; Start 05/07/17 at 09:00; Stop 05/13/17 at 08:29; Status DC Non-Formulary Medication 1,300 mg Q8HRS PO ; Start 05/06/17 at 14:00; Stop at 15:31; Status DC Citalopram Hydrobromide (CeleXA) 10 mg DAILY PO Last administered on 07:47; Start 05/07/17 at 09:00; Stop 05/08/17 at 18:33; Status DC Hydrochlorothiazide (Microzide) 12.5 mg DAILY PO Last administered on 07:34; Start 05/07/17 at 09:00; Stop 05/07/17 at 17:04; Status DC Atorvastatin Calcium (Lipitor) 5 mg QHS PO Last administered on 05/17/17 19:28 ; Start 05/06/17 at 21:00 Multi-Ingredient Ointment (Analgesic [place]) 1 ira PRN BID PRN TP PAIN; Start at 15:00 Potassium Chloride (Klor-Con 8) 8 meq DAILYWBKFT PO Last administered on 08:08; Start 05/07/17 at 08:00; Stop 05/14/17 at 08:15; Status DC Non-Formulary Medication 1 tab DAILY PO ; Start 05/07/17 at 09:00; Status UNV Al Hydroxide/Mg Hydroxide (Mylanta Plus Xs) 15 ml PRN AFTMEALHC PRN PO DYSPEPSIA; Start 05/06/17 at 15:30 Magnesium Hydroxide (Milk Of Magnesia) 2,400 mg PRN QHS PRN PO CONSTIPATION Last administered on 05/13/17 08:18; Start 05/06/17 at 15:30 Losartan Potassium (Cozaar) 100 mg DAILY PO Last administered on 05/07/17 07: 33; Start 05/07/17 at 09:00; Stop 05/07/17 at 17:04; Status DC Vitamin D (Vitamin D3) 50,000 unit WEEKLY PO Last administered on 05/14/17 08 :15; Start 05/07/17 at 09:00; Stop 06/18/17 at 09:01 Olanzapine (ZyPREXA ZYDIS) 2.5 mg PRN Q2HR PRN PO PSYCHOSIS Last administered on 05/12/17 11:41; Start 05/06/17 at 17:45 Valproic Acid (Depakene) 250 mg [id number] PO Last administered on 05/17/17at 19:28; Start 05/07/17 at 14:00 Sodium Chloride 1,000 ml @ 75 mls/hr [id number] IV Last administered on 09:51; Start 05/07/17 at 17:15; Stop 05/09/17 at 11:41; Status DC Sertraline HCl (Zoloft) 25 mg DAILY PO Last administered on 05/09/17 08:12; Start 05/09/17 at 09:00; Stop 05/11/17 at 08:00; Status DC Sertraline HCl (Zoloft) 50 mg DAILY PO Last administered on 05/17/17at 09:54; Start 05/11/17 at 09:00 Sodium Chloride (Normal Saline Flush 3ml) 3 ml QSHIFT PRN IV AFTER MEDS AND BLOOD DRAWS; Start 05/10/17 at 16:00 Quetiapine Fumarate (SEROquel) 12.5 mg [id number] PO Last administered on 15:29; Start 05/10/17 at 18:30; Stop 05/13/17 at 17:38; Status DC Dextrose 1,000 ml @ 125 mls/hr 1X ONCE IV Last administered on 05/11/17 13: 51; Start 05/11/17 at 13:15; Stop 05/11/17 at 21:14; Status DC Morphine Sulfate (Roxanol Conc) 5 mg PRN Q3HRS PRN SL PAIN Last administered on 05/17/17at 12:22; Start 05/13/17 at 13:00 Quetiapine Fumarate (SEROquel) 12.5 mg TID@0900,1300,1700 PO Last administered on 05/17/17at 17:10; Start 05/14/17 at 09:00; Stop 05/17/17 at 18:07; Status DC Potassium Chloride (KCl Oral Soln) 8 meq DAILYWBKFT PO Last administered on 05/17at 09:53; Start 05/14/17 at 08:30 Quetiapine Fumarate (SEROquel) 12.5 mg BID@0900,1700 PO ; Start 05/18/17 at 09:00 Active Scripts Active Reported Depakene (Valproate Sodium) 250 Mg/5 Ml Solution 250 Mg PO [id number] Hydralazine Hcl 25 Mg Tablet 25 Mg PO TID Zoloft (Sertraline Hcl) 50 Mg Tablet 50 Mg PO DAILY Seroquel (Quetiapine Fumarate) 25 Mg Tablet 12.5 Mg PO [id number] Klor-Con 8 (Potassium Chloride) 8 Meq Tablet.er 8 Meq PO DAILYWBKFT Zyprexa (Olanzapine) 2.5 Mg Tablet 2.5 Mg PO PRN Q2HR PRN Analgesic [place] (Methyl Salicylate/Menthol) 28 Gm Oint...g. 1 Ira TP PRN BID PRN Milk Of Magnesia (Magnesium Hydroxide) 2,400 Mg/10 Ml Oral.susp 2,400 Mg PO PRN QHS PRN Mag-Al Plus Xs Suspension (Mag Hydrox/Al Hydrox/Simeth) 30 Ml Oral.susp 15 Ml PO PRN AFTMEALHC PRN Lipitor (Atorvastatin Calcium) 10 Mg Tablet 5 Mg PO HS D3-50 (Cholecalciferol (Vitamin D3)) 50,000 Unit Capsule 50,000 Unit PO WEEKLY Acetaminophen 500 Mg Tablet 500 Mg PO BID Tylenol (Acetaminophen) 325 Mg Tablet 650 Mg PO PRN Q6HRS PRN [place] 5-325 Tablet (Hydrocodone Bit/Acetaminophen) 1 Each Tablet 1 Tab PO PRN Q6HRS PRN [place] 5-325 Tablet (Hydrocodone Bit/Acetaminophen) 1 Each Tablet 1 Tab PO Q4HRS W/A PRN Namenda (Memantine Hcl) 10 Mg Tablet 5 Mg PO HS Losartan-Hctz 100-12.5 Mg Tab (Losartan/Hydrochlorothiazide) 1 Each Tablet 1 Tab PO DAILY Lexapro (Escitalopram Oxalate) 5 Mg Tablet 5 Mg PO DAILY EXELON 4.6mg/24hr (Rivastigmine) 1 Each Patch.td24 1 Patch TP DAILY Depakote Sprinkle (Divalproex Sodium) 125 Mg Cap.sprink 250 Mg PO TID Biofreeze (Menthol) 118 Ml Gel..ml. 1 Ml TP PRN BID PRN Lorazepam 0.5 Mg Tablet 0.5 Mg PO PRN Q4HRS PRN Hydralazine Hcl 25 Mg Tablet 25 Mg PO TID Arthritis Pain (Acetaminophen) 650 Mg Tablet.er 1,300 Mg PO Q8HRS Namenda (Memantine Hcl) 10 Mg Tablet 10 Mg PO DAILY Donepezil Hcl 10 Mg Tablet 10 Mg PO HS Lovastatin 20 Mg Tablet 20 Mg PO HS Micardis Hct 80-12.5 Mg Tablet (Telmisartan/Hydrochlorothiazid) 1 Each Tablet 1 Tab PO DAILY Potassium Gluconate 500 Mg Tablet 500 Mg PO DAILY I have reviewed the current psychotropics carefully including drug interactions. Risk benefit ratio favors no change other than as noted in my dictated progress note. 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
[2017-05-18] MEDS: MORPHINE SULFATE 20 MG/ML CONC SOLUTION. SL PRN ×5 (01:01→21:57)
[2017-05-18 05:41] VITALS: BP 154/56
--- NOTE | 2017-05-18 08:23 | PN ---
DATE: 05/15/2017 PSYCHIATRIC PROGRESS NOTE This is a late entry of 05/15/2017 covers elements not covered in my initial note of 05/15/2017. SUBJECTIVE: I met with the patient evening of 05/15/2017. The patient remains confused, anxious, more alert during the day, compliant with medications, slept reasonably. REVIEW OF SYSTEMS: No CV, , pulmonary, eye, ENT system symptoms on review. Reliability poor. Gait unsteady in wheelchair. MENTAL STATUS EXAM: Oriented to herself. Insight, judgment, recent and remote memory, attention, concentration, fund of knowledge poor, consistent with her diagnosis mentioned in my initial note. IMPRESSION: Major neurocognitive disorder, Alzheimer, vascular with depression, delusion, behavioral disturbance. Rest unchanged from initial note. PLAN: Continue psychotropics mentioned in my initial note. MAN Ana EPSTEIN MD DR: USMAN/rogerio JOB#: [id number] / [id number]
--- NOTE | 2017-05-18 08:30 | PN ---
DATE: 05/16/2017 PSYCHIATRIC PROGRESS NOTE SUBJECTIVE: This is a late entry for date of service 05/16/2017, covers elements not covered in my initial note of 05/16/2017. Met with the patient evening of 05/16/2017. Previous evening, the patient was crying. Appetite is poor. Sodium 149, BUN 38, magnesium 2.5. Roxanol seemed to help her pain and anxiety, takes her medications crushed in [employer]. Seroquel was held due to sedation. Perseverating at times. REVIEW OF SYSTEMS: Ambulation impaired, in wheelchair. No CV, , pulmonary, eye, ENT system symptoms on review. Reliability poor. MENTAL STATUS EXAM: Oriented to herself. Insight, judgment, recent and remote memory, attention, concentration, fund of knowledge poor, consistent with her diagnosis mentioned in my initial note. IMPRESSION: Major neurocognitive disorder, Alzheimer, vascular with depression, delusion, behavioral disturbance. Rest unchanged. PLAN: Continue psychotropics mentioned in my initial note. Adjust further as clinically indicated. MAN Ana EPSTEIN MD DR: USMAN/rogerio JOB#: [id number] / [id number]
[2017-05-18] MEDS: VALPROATE ACID 250 MG/5 ML ORAL SOLUTION PO SCH ×3 (09:10→19:26)
[2017-05-18] MEDS: SERTRALINE 50 MG TABLET. PO SCH (09:11)
[2017-05-18] MEDS: POTASSIUM CHLORIDE 20 MEQ/15 ML ORAL LIQUID. PO SCH (09:11)
[2017-05-18] MEDS: hydrALAZINE 25 MG TABLET PO SCH ×3 (09:11→19:26)
[2017-05-18] MEDS: ACETAMINOPHEN 500 MG TABLET PO SCH ×2 (09:11→19:26)
[2017-05-18] MEDS: QUEtiapine 25 MG TABLET. PO SCH ×2 (09:13→17:08)
[2017-05-18 14:14] VITALS: BP 136/69
[2017-05-18 16:18] VITALS: BP 137/67
[2017-05-18] MEDS ORDERED: MORP5SUP RC (16:37)
[2017-05-18] MEDS: ATORVASTATIN CALCIUM 10 MG TABLET. PO SCH (19:26)
--- NOTE | 2017-05-18 20:04 | PDOC ---
Exam Note: Tobin Note: Please also refer to the separate dictated note~for this date of service dictated separately.~Patient seen individually. Discussed the patient with Nursing staff reviewed the chart.~Reviewed interim history and current functioning. Reviewed vital signs,~Labs/ Radiology~and current medications noted below. Continue current treatment with the changes noted in the dictated addendum note Assessment: Vital Signs: Vital Signs Date Time Temp Pulse Resp B/P (MAP) Pulse Ox O2 Delivery O2 Flow Rate FiO2 05/18/17 19:26 92 137/67 05/18/17 16:44 20 96 05/18/17 16:18 97.7 05/18/17 05:23 Room Air I&O Intake and Output 05/18/17 07:00 Intake Total 120 ml Balance 120 ml Intake Oral 120 ml Current Medications: Meds: Current Medications Acetaminophen (Tylenol) 500 mg BID PO Last administered on 05/18/17 19:26; Start 05/06/17 at 21:00 Acetaminophen (Tylenol) 650 mg PRN Q6HRS PRN PO PAIN / TEMP Last administered on 05/07/17 07:15; Start 05/06/17 at 14:00 Vitamin D (Vitamin D3) 50,000 unit WEEKLY PO ; Start 05/06/17 at 17:00; Stop 05/06/17 at 17:00; Status DC Divalproex Sodium (Depakote Sprinkles) 250 mg TID PO Last administered on 05/07 07:36; Start 05/06/17 at 14:00; Stop 05/07/17 at 13:09; Status DC Donepezil HCl (Aricept) 10 mg HS PO Last administered on 05/12/17 19:18; Start 05/06/17 at 21:00; Stop 05/13/17 at 08:29; Status DC Hydralazine HCl (Apresoline) 25 mg TID PO Last administered on 05/18/17 19:26; Start 05/06/17 at 14:00 Acetaminophen/ Hydrocodone Bitart (Lortab 5/325) 1 tab PRN Q6HRS PRN PO PAIN; Start 05/06/17 at 14:00; Status UNV Acetaminophen/ Hydrocodone Bitart (Lortab 5/325) 1 tab Q4HRS W/A PRN PO PAIN Last administered on 05/15/17 19:24; Start 05/06/17 at 14:00 Lorazepam (Ativan) 0.5 mg PRN Q4HRS PRN PO ANXIETY / AGITATION Last administered on 05/13/17 09:00; Start 05/06/17 at 14:00 Memantine (Namenda) 5 mg QHS PO Last administered on 05/12/17 19:19; Start 05/06/17 at 21:00; Stop 05/13/17 at 08:29; Status DC Memantine (Namenda) 10 mg DAILY PO Last administered on 05/13/17 08:04; Start 05/07/17 at 09:00; Stop 05/13/17 at 08:29; Status DC Rivastigmine (Exelon) 1 patch DAILY TD Last administered on 05/13/17 08:06; Start 05/07/17 at 09:00; Stop 05/13/17 at 08:29; Status DC Non-Formulary Medication 1,300 mg Q8HRS PO ; Start 05/06/17 at 14:00; Stop at 15:31; Status DC Citalopram Hydrobromide (CeleXA) 10 mg DAILY PO Last administered on 07:47; Start 05/07/17 at 09:00; Stop 05/08/17 at 18:33; Status DC Hydrochlorothiazide (Microzide) 12.5 mg DAILY PO Last administered on 07:34; Start 05/07/17 at 09:00; Stop 05/07/17 at 17:04; Status DC Atorvastatin Calcium (Lipitor) 5 mg QHS PO Last administered on 05/18/17at 19:26 ; Start 05/06/17 at 21:00 Multi-Ingredient Ointment (Analgesic [place]) 1 ira PRN BID PRN TP PAIN; Start at 15:00 Potassium Chloride (Klor-Con 8) 8 meq DAILYWBKFT PO Last administered on 08:08; Start 05/07/17 at 08:00; Stop 05/14/17 at 08:15; Status DC Non-Formulary Medication 1 tab DAILY PO ; Start 05/07/17 at 09:00; Status UNV Al Hydroxide/Mg Hydroxide (Mylanta Plus Xs) 15 ml PRN AFTMEALHC PRN PO DYSPEPSIA; Start 05/06/17 at 15:30 Magnesium Hydroxide (Milk Of Magnesia) 2,400 mg PRN QHS PRN PO CONSTIPATION Last administered on 05/13/17 08:18; Start 05/06/17 at 15:30 Losartan Potassium (Cozaar) 100 mg DAILY PO Last administered on 05/07/17 07: 33; Start 05/07/17 at 09:00; Stop 05/07/17 at 17:04; Status DC Vitamin D (Vitamin D3) 50,000 unit WEEKLY PO Last administered on 05/14/17 08 :15; Start 05/07/17 at 09:00; Stop 06/18/17 at 09:01 Olanzapine (ZyPREXA ZYDIS) 2.5 mg PRN Q2HR PRN PO PSYCHOSIS Last administered on 05/12/17 11:41; Start 05/06/17 at 17:45 Valproic Acid (Depakene) 250 mg [id number] PO Last administered on 05/18/17 19:26; Start 05/07/17 at 14:00 Sodium Chloride 1,000 ml @ 75 mls/hr [id number] IV Last administered on 09:51; Start 05/07/17 at 17:15; Stop 05/09/17 at 11:41; Status DC Sertraline HCl (Zoloft) 25 mg DAILY PO Last administered on 05/09/17 08:12; Start 05/09/17 at 09:00; Stop 05/11/17 at 08:00; Status DC Sertraline HCl (Zoloft) 50 mg DAILY PO Last administered on 05/18/17 09:11; Start 05/11/17 at 09:00 Sodium Chloride (Normal Saline Flush 3ml) 3 ml QSHIFT PRN IV AFTER MEDS AND BLOOD DRAWS; Start 05/10/17 at 16:00 Quetiapine Fumarate (SEROquel) 12.5 mg [id number] PO Last administered on 15:29; Start 05/10/17 at 18:30; Stop 05/13/17 at 17:38; Status DC Dextrose 1,000 ml @ 125 mls/hr 1X ONCE IV Last administered on 05/11/17t 13: 51; Start 05/11/17 at 13:15; Stop 05/11/17 at 21:14; Status DC Morphine Sulfate (Roxanol Conc) 5 mg PRN Q3HRS PRN SL PAIN Last administered on 05/18/17at 15:31; Start 05/13/17 at 13:00 Quetiapine Fumarate (SEROquel) 12.5 mg TID@0900,1300,1700 PO Last administered on 05/17/17at 17:10; Start 05/14/17 at 09:00; Stop 05/17/17 at 18:07; Status DC Potassium Chloride (KCl Oral Soln) 8 meq DAILYWBKFT PO Last administered on 05/18at 09:11; Start 05/14/17 at 08:30 Quetiapine Fumarate (SEROquel) 12.5 mg BID@0900,1700 PO Last administered on 05/18/17at 17:08; Start 05/18/17 at 09:00 Active Scripts Active Reported Morphine Sulfate 5 Mg Supp.rect 5 Mg RC Depakene (Valproate Sodium) 250 Mg/5 Ml Solution 250 Mg PO [id number] Hydralazine Hcl 25 Mg Tablet 25 Mg PO TID Zoloft (Sertraline Hcl) 50 Mg Tablet 50 Mg PO DAILY Seroquel (Quetiapine Fumarate) 25 Mg Tablet 12.5 Mg PO [id number] Klor-Con 8 (Potassium Chloride) 8 Meq Tablet.er 8 Meq PO DAILYWBKFT Zyprexa (Olanzapine) 2.5 Mg Tablet 2.5 Mg PO PRN Q2HR PRN Analgesic [place] (Methyl Salicylate/Menthol) 28 Gm Oint...g. 1 Ira TP PRN BID PRN Milk Of Magnesia (Magnesium Hydroxide) 2,400 Mg/10 Ml Oral.susp 2,400 Mg PO PRN QHS PRN Mag-Al Plus Xs Suspension (Mag Hydrox/Al Hydrox/Simeth) 30 Ml Oral.susp 15 Ml PO PRN AFTMEALHC PRN Lipitor (Atorvastatin Calcium) 10 Mg Tablet 5 Mg PO HS D3-50 (Cholecalciferol (Vitamin D3)) 50,000 Unit Capsule 50,000 Unit PO WEEKLY Acetaminophen 500 Mg Tablet 500 Mg PO BID Tylenol (Acetaminophen) 325 Mg Tablet 650 Mg PO PRN Q6HRS PRN [place] 5-325 Tablet (Hydrocodone Bit/Acetaminophen) 1 Each Tablet 1 Tab PO PRN Q6HRS PRN [place] 5-325 Tablet (Hydrocodone Bit/Acetaminophen) 1 Each Tablet 1 Tab PO Q4HRS W/A PRN Namenda (Memantine Hcl) 10 Mg Tablet 5 Mg PO HS Losartan-Hctz 100-12.5 Mg Tab (Losartan/Hydrochlorothiazide) 1 Each Tablet 1 Tab PO DAILY Lexapro (Escitalopram Oxalate) 5 Mg Tablet 5 Mg PO DAILY EXELON 4.6mg/24hr (Rivastigmine) 1 Each Patch.td24 1 Patch TP DAILY Depakote Sprinkle (Divalproex Sodium) 125 Mg Cap.sprink 250 Mg PO TID Biofreeze (Menthol) 118 Ml Gel..ml. 1 Ml TP PRN BID PRN Lorazepam 0.5 Mg Tablet 0.5 Mg PO PRN Q4HRS PRN Hydralazine Hcl 25 Mg Tablet 25 Mg PO TID Arthritis Pain (Acetaminophen) 650 Mg Tablet.er 1,300 Mg PO Q8HRS Namenda (Memantine Hcl) 10 Mg Tablet 10 Mg PO DAILY Donepezil Hcl 10 Mg Tablet 10 Mg PO HS Lovastatin 20 Mg Tablet 20 Mg PO HS Micardis Hct 80-12.5 Mg Tablet (Telmisartan/Hydrochlorothiazid) 1 Each Tablet 1 Tab PO DAILY Potassium Gluconate 500 Mg Tablet 500 Mg PO DAILY I have reviewed the current psychotropics carefully including drug interactions. Risk benefit ratio favors no change other than as noted in my dictated progress note. 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
[2017-05-18] MEDS ORDERED: morphine sulfate SL (23:21)
--- NOTE | 2017-05-19 02:01 | PN ---
DATE: 05/17/2017 This late entry, date of service 05/17/2017, covers elements not covered in my initial of 05/17/2017. Met with the patient evening of 05/17/2017. SUBJECTIVE: The patient was reviewed for entering hospice care and I will defer to Dr. Sanders. She has been yelling out at times pretending to gag, at times per nursing report, remains confused. REVIEW OF SYSTEMS: Ambulation impaired, in [place]da chair. No CV, , pulmonary, eye, ENT system symptoms on review. Reliability poor. MENTAL STATUS EXAM: Oriented to herself. Insight, judgment, recent and remote memory, attention, concentration, fund of knowledge poor, consistent with her diagnosis mentioned in my initial note. IMPRESSION: Major neurocognitive disorder, Alzheimer, vascular with depression, delusion, behavioral disturbance. Rest unchanged. PLAN: Continue psychotropics mentioned in my initial note. MAN Ana EPSTEIN MD DR: USMAN/rogerio JOB#: [id number] / [id number]
[2017-05-19 03:04] VITALS: BP 143/77
[2017-05-19] MEDS: MORPHINE SULFATE 20 MG/ML CONC SOLUTION. SL PRN (03:05)
[2017-05-19 06:03] VITALS: BP 100/60
[2017-05-19] MEDS: VALPROATE ACID 250 MG/5 ML ORAL SOLUTION PO SCH (08:22)
[2017-05-19] MEDS: POTASSIUM CHLORIDE 20 MEQ/15 ML ORAL LIQUID. PO SCH (08:23)
[2017-05-19] MEDS: ACETAMINOPHEN 500 MG TABLET PO SCH (08:23)
[2017-05-19 08:24] VITALS: BP 100/60
[2017-05-19] MEDS: QUEtiapine 25 MG TABLET. PO SCH (08:24)
[2017-05-19] MEDS: hydrALAZINE 25 MG TABLET PO SCH (08:24)
[2017-05-19] MEDS: SERTRALINE 50 MG TABLET. PO SCH (08:24)
--- NOTE | 2017-05-19 18:49 | PDOC ---
Exam Note: Tobin Note: Please also refer to the separate dictated note~for this date of service dictated separately.~Patient seen individually. Discussed the patient with Nursing staff reviewed the chart.~Reviewed interim history and current functioning. Reviewed vital signs,~Labs/ Radiology~and current medications noted below. Continue current treatment with the changes noted in the dictated addendum note Assessment: Vital Signs: Vital Signs Date Time Temp Pulse Resp B/P (MAP) Pulse Ox O2 Delivery O2 Flow Rate FiO2 05/19/17 08:24 66 100/60 05/19/17 06:03 98.2 16 94 Room Air I&O Intake and Output 05/19/17 06:59 Intake Total 0 ml Balance 0 ml Intake Oral 0 ml Current Medications: Meds: Current Medications Acetaminophen (Tylenol) 500 mg BID PO Last administered on 05/19/17at 08:23; Start 05/06/17 at 21:00; Stop 05/19/17 at 11:36; Status DC Acetaminophen (Tylenol) 650 mg PRN Q6HRS PRN PO PAIN / TEMP Last administered on 05/07/17 07:15; Start 05/06/17 at 14:00; Stop 05/19/17 at 11:36; Status DC Vitamin D (Vitamin D3) 50,000 unit WEEKLY PO ; Start 05/06/17 at 17:00; Stop 05/06/17 at 17:00; Status DC Divalproex Sodium (Depakote Sprinkles) 250 mg TID PO Last administered on 05/07 07:36; Start 05/06/17 at 14:00; Stop 05/07/17 at 13:09; Status DC Donepezil HCl (Aricept) 10 mg HS PO Last administered on 05/12/17 19:18; Start 05/06/17 at 21:00; Stop 05/13/17 at 08:29; Status DC Hydralazine HCl (Apresoline) 25 mg TID PO Last administered on 05/19/17at 08:24; Start 05/06/17 at 14:00; Stop 05/19/17 at 11:36; Status DC Acetaminophen/ Hydrocodone Bitart (Lortab 5/325) 1 tab PRN Q6HRS PRN PO PAIN; Start 05/06/17 at 14:00; Status UNV Acetaminophen/ Hydrocodone Bitart (Lortab 5/325) 1 tab Q4HRS W/A PRN PO PAIN Last administered on 05/15/17 19:24; Start 05/06/17 at 14:00; Stop 05/19/17 at 11:36; Status DC Lorazepam (Ativan) 0.5 mg PRN Q4HRS PRN PO ANXIETY / AGITATION Last administered on 05/13/17 09:00; Start 05/06/17 at 14:00; Stop 05/19/17 at 11: 36; Status DC Memantine (Namenda) 5 mg QHS PO Last administered on 05/12/17 19:19; Start 05/06/17 at 21:00; Stop 05/13/17 at 08:29; Status DC Memantine (Namenda) 10 mg DAILY PO Last administered on 05/13/17 08:04; Start 05/07/17 at 09:00; Stop 05/13/17 at 08:29; Status DC Rivastigmine (Exelon) 1 patch DAILY TD Last administered on 05/13/17 08:06; Start 05/07/17 at 09:00; Stop 05/13/17 at 08:29; Status DC Non-Formulary Medication 1,300 mg Q8HRS PO ; Start 05/06/17 at 14:00; Stop at 15:31; Status DC Citalopram Hydrobromide (CeleXA) 10 mg DAILY PO Last administered on 07:47; Start 05/07/17 at 09:00; Stop 05/08/17 at 18:33; Status DC Hydrochlorothiazide (Microzide) 12.5 mg DAILY PO Last administered on 07:34; Start 05/07/17 at 09:00; Stop 05/07/17 at 17:04; Status DC Atorvastatin Calcium (Lipitor) 5 mg QHS PO Last administered on 05/18/17at 19:26 ; Start 05/06/17 at 21:00; Stop 05/19/17 at 11:36; Status DC Multi-Ingredient Ointment (Analgesic [place]) 1 ira PRN BID PRN TP PAIN; Start at 15:00; Stop 1/4/18 at 11:36; Status DC Potassium Chloride (Klor-Con 8) 8 meq DAILYWBKFT PO Last administered on 08:08; Start 05/07/17 at 08:00; Stop 05/14/17 at 08:15; Status DC Non-Formulary Medication 1 tab DAILY PO ; Start 05/07/17 at 09:00; Status UNV Al Hydroxide/Mg Hydroxide (Mylanta Plus Xs) 15 ml PRN AFTMEALHC PRN PO DYSPEPSIA; Start 05/06/17 at 15:30; Stop 05/19/17 at 11:36; Status DC Magnesium Hydroxide (Milk Of Magnesia) 2,400 mg PRN QHS PRN PO CONSTIPATION Last administered on 05/13/17 08:18; Start 05/06/17 at 15:30; Stop 05/19/17 at 11:36; Status DC Losartan Potassium (Cozaar) 100 mg DAILY PO Last administered on 05/07/17 07: 33; Start 05/07/17 at 09:00; Stop 05/07/17 at 17:04; Status DC Vitamin D (Vitamin D3) 50,000 unit WEEKLY PO Last administered on 05/14/17 08 :15; Start 05/07/17 at 09:00; Stop 05/19/17 at 11:36; Status DC Olanzapine (ZyPREXA ZYDIS) 2.5 mg PRN Q2HR PRN PO PSYCHOSIS Last administered on 05/19/17 08:56; Start 05/06/17 at 17:45; Stop 05/19/17 at 11:36; Status DC Valproic Acid (Depakene) 250 mg [id number] PO Last administered on 05/19/17 08:22; Start 05/07/17 at 14:00; Stop 05/19/17 at 11:36; Status DC Sodium Chloride 1,000 ml @ 75 mls/hr [id number] IV Last administered on 09:51; Start 05/07/17 at 17:15; Stop 05/09/17 at 11:41; Status DC Sertraline HCl (Zoloft) 25 mg DAILY PO Last administered on 05/09/17 08:12; Start 05/09/17 at 09:00; Stop 05/11/17 at 08:00; Status DC Sertraline HCl (Zoloft) 50 mg DAILY PO Last administered on 05/19/17at 08:24; Start 05/11/17 at 09:00; Stop 05/19/17 at 11:36; Status DC Sodium Chloride (Normal Saline Flush 3ml) 3 ml QSHIFT PRN IV AFTER MEDS AND BLOOD DRAWS; Start 05/10/17 at 16:00; Stop 05/19/17 at 11:36; Status DC Quetiapine Fumarate (SEROquel) 12.5 mg [id number] PO Last administered on 15:29; Start 05/10/17 at 18:30; Stop 05/13/17 at 17:38; Status DC Dextrose 1,000 ml @ 125 mls/hr 1X ONCE IV Last administered on 05/11/17 13: 51; Start 05/11/17 at 13:15; Stop 05/11/17 at 21:14; Status DC Morphine Sulfate (Roxanol Conc) 5 mg PRN Q3HRS PRN SL PAIN Last administered on 05/19/17at 03:05; Start 05/13/17 at 13:00; Stop 05/19/17 at 11:36; Status DC Quetiapine Fumarate (SEROquel) 12.5 mg TID@0900,1300,1700 PO Last administered on 05/17/17at 17:10; Start 05/14/17 at 09:00; Stop 05/17/17 at 18:07; Status DC Potassium Chloride (KCl Oral Soln) 8 meq DAILYWBKFT PO Last administered on 05/19at 08:23; Start 05/14/17 at 08:30; Stop 05/19/17 at 11:36; Status DC Quetiapine Fumarate (SEROquel) 12.5 mg BID@0900,1700 PO Last administered on 05/19/17at 08:24; Start 05/18/17 at 09:00; Stop 05/19/17 at 11:36; Status DC Active Scripts Active Reported [morphine sulfate] 5 Mg SL PRN Q3HRS PRN Depakene (Valproate Sodium) 250 Mg/5 Ml Solution 250 Mg PO [id number] Zoloft (Sertraline Hcl) 50 Mg Tablet 50 Mg PO DAILY Seroquel (Quetiapine Fumarate) 25 Mg Tablet 12.5 Mg PO [id number] Klor-Con 8 (Potassium Chloride) 8 Meq Tablet.er 8 Meq PO [id number] Zyprexa (Olanzapine) 2.5 Mg Tablet 2.5 Mg PO PRN Q2HR PRN MDD 10mg/25hrs Analgesic Orem (Methyl Salicylate/Menthol) 28 Gm Oint...g. 1 Ira TP PRN BID PRN Milk Of Magnesia (Magnesium Hydroxide) 2,400 Mg/10 Ml Oral.susp 2,400 Mg PO PRN QHS PRN Mag-Al Plus Xs Suspension (Mag Hydrox/Al Hydrox/Simeth) 30 Ml Oral.susp 15 Ml PO PRN AFTMEALHC PRN Lipitor (Atorvastatin Calcium) 10 Mg Tablet 5 Mg PO HS D3-50 (Cholecalciferol (Vitamin D3)) 50,000 Unit Capsule 50,000 Unit PO WEEKLY On Saturdays Acetaminophen 500 Mg Tablet 500 Mg PO BID MDD 4000mg Tylenol (Acetaminophen) 325 Mg Tablet 650 Mg PO PRN Q6HRS PRN [place] 5-325 Tablet (Hydrocodone Bit/Acetaminophen) 1 Each Tablet 1 Tab PO Q4HRS W/A PRN Lorazepam 0.5 Mg Tablet 0.5 Mg PO PRN Q4HRS PRN Hydralazine Hcl 25 Mg Tablet 25 Mg PO TID I have reviewed the current psychotropics carefully including drug interactions. Risk benefit ratio favors no change other than as noted in my dictated progress note. 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
--- NOTE | 2017-05-20 10:53 | DS ---
DATE OF DISCHARGE: 05/19/2017 DISCHARGE SUMMARY/PSYCHIATRIC PROGRESS NOTE This late entry covers 05/19/2017 covers elements not covered in my initial note 05/19/2017. REASON FOR ADMISSION: Please refer to the admission history for details. Briefly, the patient is a 76-year-old female referred to us from [facility] in [place], [place], by her primary care physician and psychiatrist, Dr. Smith, on account of worsening confusion, throwing things, biting staff members and others, hitting others. Her behaviors were deemed dangerous, out of control, unmanageable. Having failed outpatient psychiatric interventions, she is referred for inpatient psychiatric stabilization. SIGNIFICANT FINDINGS AND CLINICAL COURSE: Following admission, the patient was seen daily individually by myself, followed medically per Dr. Stewart/Dr Sanders. The patient was quite labile in her mood, yelling, confused, refusing to eat, gagging on her food, restless. Adjustments were made in her psychotropics and she seemed to do a little better on Ativan p.r.n., Depakene 250 mg t.i.d., Zoloft 50 mg a day, Zyprexa p.r.n., Seroquel 12.5 mg b.i.d. Despite that, she was medically more compromised and was assessed for hospice care per Dr. Sanders/Dr Stewart. CONDITION AT DISCHARGE: Improved from a psychiatric standpoint, but she remained confused and medically more compromised. REVIEW OF SYSTEMS: Ambulation impaired, in wheelchair. No CV, , pulmonary, eye, ENT system symptoms on review. Reliability is poor. MENTAL STATUS EXAM: Oriented to herself. Insight, judgment, recent and remote memory, attention, concentration, fund of knowledge is poor, consistent with her diagnoses mentioned in my initial note. FINAL DIAGNOSES: Major neurocognitive disorder; Alzheimer, vascular with depression, delusion, behavioral disturbance; anxiety disorder, unspecified; impulse control disorder, unspecified. Rest is unchanged from admission note. DISCHARGE MEDICATIONS: Please refer to the EMRAD. DISCHARGE INSTRUCTIONS: Outpatient psychiatric and medical followup at the [facility] on hospice care. NEHEMIAS EPSTEIN MD DR: USMAN/rogerio JOB#: [id number] / [id number]
--- NOTE | 2017-05-22 13:21 | PN ---
DATE: 05/18/2017 PSYCHIATRIC PROGRESS NOTE HISTORY OF PRESENT ILLNESS: This is a late entry of 05/18/2017 covers elements not covered in my initial note 05/18/2017. I met with the patient evening of 05/18/2017. The patient was staffed at a treatment team meeting earlier in the day on 05/18/2017. She remains confused, yelling at times. REVIEW OF SYSTEMS: Ambulation impaired, in wheelchair. No CV, , pulmonary, eye system symptoms on review. Reliability poor. MENTAL STATUS EXAM: Oriented to herself. Insight, judgment, recent and remote memory, attention, concentration, fund of knowledge poor, consistent with her diagnosis mentioned in my initial note. IMPRESSION: Major neurocognitive disorder, Alzheimer, vascular with depression; delusion, behavioral disturbance. PLAN: Continue psychotropics mentioned in my initial note. Seroquel has been reduced from 12.5 mg 3 times a day to twice a day, possible transition to senior living on 05/19/2017 on hospice care. MAN Ana EPSTEIN MD DR: USMAN/rogerio JOB#: [id number] / [id number]
== END 2017-05-19 09:10 | disposition hospice, home (50) | DRG 56 ==
LOC: GEROPSY 13:44
PROVIDERS: ADMIT Psychiatry & Neurology Psychiatry; ATTEND Psychiatry & Neurology Psychiatry
DX: G30.9 Alzheimer's disease, unspecified (principal); N17.0 Acute kidney failure with tubular necrosis; F01.51 Vascular dementia, unspecified severity, with behavioral disturbance; F02.81 Dementia in other diseases classified elsewhere, unspecified severity, with behavioral disturbance; E87.1 Hypo-osmolality and hyponatremia; F32.9 Major depressive disorder, single episode, unspecified; I12.9 Hypertensive chronic kidney disease with stage 1 through stage 4 chronic kidney disease, or unspecified chronic kidney disease; N18.9 Chronic kidney disease, unspecified; F41.9 Anxiety disorder, unspecified; E78.5 Hyperlipidemia, unspecified; F22 Delusional disorders; F63.9 Impulse disorder, unspecified; K52.9 Noninfective gastroenteritis and colitis, unspecified; G25.2 Other specified forms of tremor; K21.9 Gastro-esophageal reflux disease without esophagitis; M19.90 Unspecified osteoarthritis, unspecified site; Z51.5 Encounter for palliative care; Z79.899 Other long term (current) drug therapy; Z88.8 Allergy status to other drugs, medicaments and biological substances; Z88.0 Allergy status to penicillin; Z74.01 Bed confinement status
CPT/HCPCS: 36415; 80048; 80053; 80061; 80164; 81001; 82140; 82306; 82607; 83036; 83540; 83550; 83735; 84436; 84443; 84480; 85025; 85610; 86593; 87086; 93005; J7030